=== PATIENT | female | born 1960 | race Caucasian/White ===

== ENCOUNTER 2020-02-16 04:08 | Emergency (ER) | payer BC, SELFPAY ==
[2020-02-16] VITALS (8 sets, daily range): BP systolic 98–121; BP diastolic 56–80; PULSE 61–88; RESP 11–18; TEMP 36.4; O2SAT 97–99; BMI 46.3
--- NOTE | 2020-02-16 | CT_ITS ---
EXAMINATION: CT HEAD WITHOUT CONTRAST CLINICAL INFORMATION: Dizziness COMPARISON: None. TECHNIQUE: Contiguous axial imaging was performed from the skull base to vertex without intravenous contrast. This CT examination was performed using dose optimization techniques as appropriate, variously including the following: * Automated exposure control * Adjustment of mA and/or kV according to patient size (this includes techniques or standardized protocols for targeted exams where dose is matched to indication/reason for exam; i.e. extremities or head) Use of iterative reconstruction technique DLP: 580 mGy-cm. FINDINGS: There is no evidence of acute intracranial hemorrhage or territorial infarction. No abnormal mass effect or midline shift is seen. Fernandez to white matter differentiation is well preserved. No extra-axial fluid collections are identified. No hydrocephalus. No significant volume loss. There is no abnormal attenuation within the brain parenchyma. The osseous structures and soft tissues are normal. Partial opacification of the left sphenoid sinus. The mastoid air cells and visualized portions of the paranasal sinuses are otherwise well aerated. IMPRESSION: No acute intracranial pathology.
--- NOTE | 2020-02-16 04:14 | ECG_ITS ---
Test Reason : DIZZINESS Blood Pressure : / mmHG Vent. Rate : 068 BPM Atrial Rate : 068 BPM P-R Int : 124 ms QRS Dur : 084 ms QT Int : 428 ms P-R-T Axes : 041 050 060 degrees QTc Int : 455 ms Sinus rhythm with Premature ventricular complexes RSR' or QR pattern in V1 suggests right ventricular conduction delay Abnormal ECG When compared with ECG of 22-MAR-2012 06:30, Premature ventricular complexes are now Present Referred By: Aminta Schaeffer Electronically Signed By:HENRY HUBBARD MD
--- NOTE | 2020-02-16 04:14 | XR_ITS ---
EXAMINATION: XR CHEST CLINICAL INFORMATION: Cough COMPARISON: None TECHNIQUE: Frontal view of the chest was obtained. FINDINGS: Cardiac leads overlie the chest. The lungs are well expanded. There is no focal consolidation, edema, or effusion. No pneumothorax. The cardiomediastinal silhouette is within normal limits. No acute osseous abnormality. IMPRESSION: Clear lungs.
--- NOTE | 2020-02-16 04:40 | ED.DIZZY ---
HPI - Dizziness General Chief Complaint: Dizziness <Aminta Schaeffer MD - Last Filed: 02/16/20:26> Stated Complaint: dizziness <Aminta Schaeffer MD - Last Filed: 02/16/20:> Time Seen by Provider: 02/16/20 04:13 <Aminta Schaeffer MD - Last Filed: 02/16/20:26> Source: patient <Aminta Schaeffer MD - Last Filed: 02/16/20:> Mode of arrival: EMS <Aminta Schaeffer MD - Last Filed: 02/16/20:> Limitations: no limitations <Aminta Schaeffer MD - Last Filed: 02/16/20:> History of Present Illness HPI Narrative: this is a 60-year-old female without significant past medical history presents with acute onset of dizziness. patient states that she had gotten up at 2:00 a.m. in the morning as is her usual practice and then was lying down on the couch and started to feel drowsy so she rolled over onto her side and when she did that she became acutely dizzy with significant vertigo described as the entire room was spinning around her head with associated sensation of nausea. She denies any associated visual/speech /hearing abnormalities and denies any unilateral numbness / weakness /tingling. In addition, this event was not associated with any fevers, chills, shortness of breath, chest pain /palpitations, diaphoresis. Patient states that otherwise she does not have any abdominal pain, diarrhea, urinary pain/ burning /frequency. she states that she is currently still dizzy but it has improved. <Aminta Schaeffer MD - Last Filed: 02/16/20 07:26> Related Data Allergies/Adverse Reactions: Allergies Allergy/AdvReac Type Severity Reaction Status Date / Time sumatriptan [From IMITREX] Allergy Unknown HIVES, Verified 02/16/20 05:53 SWELLING azithromycin AdvReac Unknown weakeness Verified 09/23/18 00:00 <Aminta Schaeffer MD - Last Filed: 02/16/20 07:26> Review of Systems Review of Systems: Pertinent positives and negatives as stated in the HPI. GEN: no fevers, chills, fatigue HEENT: no nasal congestion, sore throat, ear pain NEURO: no headache, dizziness, focal weakness PULM: no cough, shortness of breath CV: no chest pain, palpitations, LE edema ABD: no abdominal pain, nausea, vomiting, diarrhea : no dysuria, urgency, frequency SKIN: no rash ROS otherwise negative x 10 <Aminta Schaeffer MD - Last Filed: 02/16/20 07:26> [facility] Past Medical History Source: nursing notes reviewed <Aminta Schaeffer MD - Last Filed: 02/16/20 07:26> Medical History: Medical History No known health problems <Aminta Schaeffer MD - Last Filed: 02/16/20 07:26> Social History Social History: Social History Smoked in Last 30 Days: No Use of substances other than those prescribed or required for medical reasons: No Advance Directives: No Advance Directives Information Provided: No <Aminta Schaeffer MD - Last Filed: 02/16/20 07:26> Physical Exam Vital Signs and I&O and Narrative: Vital Signs and I&O: Vital Signs Temp 97.6 F 02/16/20 07:21 Pulse 77 02/16/20 09:07 Resp 11 L 02/16/20 09:07 BP 105/65 02/16/20 09:07 Pulse Ox 99 02/16/20 09:07 Intake & Output 02/15/20 02/16/20 02/16/20 18:59 06:59 18:59 Intake Total 299.70 / 299.70 700.3 / 700.3 Balance 299.70 / 299.70 700.3 / 700.3 Weight 115 kg Intake: Intake, IV Amoun t 299.70 / 299.70 700.3 / 700.3 0.9 % Sodium C hloride 1,000 ml 299.70 / 299.70 700.3 / 700.3 @ 999 mls/hr I VCONT .Q1H1M [facility] Rx#:[id number] Body Mass Index 46.3 <Aminta Schaeffer MD - Last Filed: 02/16/20 07:26> Vital Signs and I&O: Vital Signs Temp 97.6 F 02/16/20 07:21 Pulse 77 02/16/20 09:07 Resp 11 L 02/16/20 09:07 BP 105/65 02/16/20 09:07 Pulse Ox 99 02/16/20 09:07 Intake & Output 02/15/20 02/16/20 02/16/20 18:59 06:59 18:59 Intake Total 299.70 / 299.70 700.3 / 700.3 Balance 299.70 / 299.70 700.3 / 700.3 Weight 115 kg Intake: Intake, IV Amoun t 299.70 / 299.70 700.3 / 700.3 0.9 % Sodium C hloride 1,000 ml 299.70 / 299.70 700.3 / 700.3 @ 999 mls/hr I VCONT .Q1H1M [facility] Rx#:[id number] Body Mass Index 46.3 <Power Beasley MD - Last Filed: 02/16/20 09:28> VITAL SIGNS: Reviewed. GENERAL: Well developed, well nourished, in no acute distress. HEAD: Normocephalic/atraumatic, EYES: PERRLA, EOMI intact without pain, no nystagmus/pallor/icterus noted EARS: Ext canals without abnormality, TMs non-bulging and non-erythematous NOSE: Nares patent bilateral OROPHARYNX: no oral lesions noted, posterior pharynx clear and non-erythematous without noted tonsillar enlargement/erythema/exudates NECK: Supple, no adenopathy LUNGS: Normal breath sounds. No adventitious sounds or accessory muscle use. SpO2<> CARDIOVASCULAR: Regular rate and rhythm without noted murmurs, no JVD or lower extremity edema. ABDOMEN: Soft, non-tender, non-distended with bowel sounds. No rigidity. No guarding. No palpable masses or hernias noted MUSCULOSKELETAL: No tenderness, deformities, or effusions noted on gross inspection. EXTREMITIES: No cyanosis, clubbing or edema. SKIN: Inspection of the skin reveals no rashes, ulcerations, jaundice, pallor, or petechiae. NEUROLOGIC: Alert and oriented x 4. Strength and sensation to light touch were grossly intact x 4. Awake and alert, PERRLA. EOMI without nystagmus. face symmetric. facial sensation intact bilaterally. speech clear and fluent. no tongue deviation. normal uvula elevation. nml shoulder shrug. 5/5 strength bilat upper and lower extrem. sensation grossly intact x4 extrem. FTN intact. no pronator drift. ambulatory with steady gait. NIHSS: <> at time <> <Aminta Schaeffer MD - Last Filed: 02/16/20 07:26> Course Course Course Narrative: This is a 60-year-old female with history and clinical presentation most consistent with BPPV but will evaluate for dehydration, cardiac ischemia but doubt stroke /PE. Attempted Genaro maneuver with limited improvement, symptoms were definitely worse when attempting left ear Genaro maneuver. Review of all lab work/CT/EKG are negative for acute findings. <Aminta Schaeffer MD - Last Filed: 02/16/20 07:26> patient seen and re-evaluated came with headache and sudden onset of vertigo with history of migraine headaches CT scan head is negative no cerebellar signs finger to nose is negative patient ambulated in the ER will discharge her home on meclizine <Power Beasley MD - Last Filed: 02/16/20 09:28> MDM - Dizziness Lab Data Result diagrams: : 02/16/20 04:47 02/16/20 04:47 <Aminta Schaeffer MD - Last Filed: 02/16/20 07:26> Labs: Lab Results 02/16/20 02/16/20 02/16/20 Range/Units 04:47 04:47 04:47 WBC 6.7 (4.8-10.8) X10*3/uL RBC 4.33 (4.20-5.50) X10*6/uL Hgb 13.2 (12.0-16.0) g/dl Hct 39.0 (37-47) % MCV 90.1 (80-98) fL MCH 30.5 (27.0-33.0) pg MCHC 33.8 (31.0-35.0) g/dl RDW 11.5 (11.0-16.0) % Plt Count 244 (160-400) X10*3/uL MPV 9.0 L (9.4-12.3) fL Immature Gran % (Auto) 0.1 (0.0-0.4) % Neut % (Auto) 66.2 (45-73) % Lymph % (Auto) 20.9 (20-40) % [place] % (Auto) 10.9 (2-11) % Eos % (Auto) 1.5 (0-4) % Baso % (Auto) 0.4 (0-2) % Lymph # (Auto) 1.4 (1.2-4.9) X10*3/uL [place] # (Auto) 0.7 (0.1-1.2) X10*3/uL Eos # (Auto) 0.1 (0.0-0.4) X10*3/uL Baso # (Auto) 0.0 (0.0-0.2) X10*3/uL Abs Immat Gran (auto) 0.01 (0.00-0.03) X10*3/uL Absolute Neuts (auto) 4.4 (2.0-8.3) X10*3/uL Absolute Nucleated RBC 0.000 (0.0-0.012) X10*3/uL Nucleated RBC % (auto) 0.0 (0.0-0.2) /100WBC Sodium 141 (135-145) mmol/L Potassium 4.0 (3.3-5.1) mmol/l Chloride 108 (96-108) mmol/L Carbon Dioxide 26 (22-29) mmol/L Anion Gap 11 L (12-20) BUN 15 (9-16) mg/dL Creatinine 0.83 (0.5-1.4) mg/dL Estim Creat Clear Calc 87.6 Estimated GFR > 60 Random Glucose 109 (60-115) mg/dL Calcium 8.7 (8.4-10.2) mg/dL Total Bilirubin 0.7 (0.0-1.0) mg/dL AST 12 (5-31) U/L ALT 9 (0-31) U/L Alkaline Phosphatase 54 (39-117) U/L Troponin I High Sens < 3.5 (<3.5-17.0) ng/L Total Protein 5.9 L (6.5-8.0) g/dL Albumin 4.1 (3.5-5.0) g/dL Urine Color Urine Appearance Urine pH (5.0-8.0) Ur Specific [place] (1.005-1.025) Urine Protein (NEG-TRACE) MG/DL Urine Glucose (UA) (NEG) MG/DL Urine Ketones (NEG) MG/DL Urine Blood (NEG) Urine Nitrite (NEG) Ur Leukocyte Esterase (NEG) 02/16/20 Range/Units 08:19 WBC (4.8-10.8) X10*3/uL RBC (4.20-5.50) X10*6/uL Hgb (12.0-16.0) g/dl Hct (37-47) % MCV (80-98) fL MCH (27.0-33.0) pg MCHC (31.0-35.0) g/dl RDW (11.0-16.0) % Plt Count (160-400) X10*3/uL MPV (9.4-12.3) fL Immature Gran % (Auto) (0.0-0.4) % Neut % (Auto) (45-73) % Lymph % (Auto) (20-40) % [place] % (Auto) (2-11) % Eos % (Auto) (0-4) % Baso % (Auto) (0-2) % Lymph # (Auto) (1.2-4.9) X10*3/uL [place] # (Auto) (0.1-1.2) X10*3/uL Eos # (Auto) (0.0-0.4) X10*3/uL Baso # (Auto) (0.0-0.2) X10*3/uL Abs Immat Gran (auto) (0.00-0.03) X10*3/uL Absolute Neuts (auto) (2.0-8.3) X10*3/uL Absolute Nucleated RBC (0.0-0.012) X10*3/uL Nucleated RBC % (auto) (0.0-0.2) /100WBC Sodium (135-145) mmol/L Potassium (3.3-5.1) mmol/l Chloride (96-108) mmol/L Carbon Dioxide (22-29) mmol/L Anion Gap (12-20) BUN (9-16) mg/dL Creatinine (0.5-1.4) mg/dL Estim Creat Clear Calc Estimated GFR Random Glucose (60-115) mg/dL Calcium (8.4-10.2) mg/dL Total Bilirubin (0.0-1.0) mg/dL AST (5-31) U/L ALT (0-31) U/L Alkaline Phosphatase (39-117) U/L Troponin I High Sens (<3.5-17.0) ng/L Total Protein (6.5-8.0) g/dL Albumin (3.5-5.0) g/dL Urine Color YELLOW Urine Appearance HAZY Urine pH 7.0 (5.0-8.0) Ur Specific [place] 1.020 (1.005-1.025) Urine Protein NEG (NEG-TRACE) MG/DL Urine Glucose (UA) NEG (NEG) MG/DL Urine Ketones 5 (NEG) MG/DL Urine Blood NEG (NEG) Urine Nitrite NEG (NEG) Ur Leukocyte Esterase NEG (NEG) <Aminta Schaeffer MD - Last Filed: 02/16/20 07:26> Lab Results 02/16/20 02/16/20 02/16/20 Range/Units 04:47 04:47 04:47 WBC 6.7 (4.8-10.8) X10*3/uL RBC 4.33 (4.20-5.50) X10*6/uL Hgb 13.2 (12.0-16.0) g/dl Hct 39.0 (37-47) % MCV 90.1 (80-98) fL MCH 30.5 (27.0-33.0) pg MCHC 33.8 (31.0-35.0) g/dl RDW 11.5 (11.0-16.0) % Plt Count 244 (160-400) X10*3/uL MPV 9.0 L (9.4-12.3) fL Immature Gran % (Auto) 0.1 (0.0-0.4) % Neut % (Auto) 66.2 (45-73) % Lymph % (Auto) 20.9 (20-40) % [place] % (Auto) 10.9 (2-11) % Eos % (Auto) 1.5 (0-4) % Baso % (Auto) 0.4 (0-2) % Lymph # (Auto) 1.4 (1.2-4.9) X10*3/uL [place] # (Auto) 0.7 (0.1-1.2) X10*3/uL Eos # (Auto) 0.1 (0.0-0.4) X10*3/uL Baso # (Auto) 0.0 (0.0-0.2) X10*3/uL Abs Immat Gran (auto) 0.01 (0.00-0.03) X10*3/uL Absolute Neuts (auto) 4.4 (2.0-8.3) X10*3/uL Absolute Nucleated RBC 0.000 (0.0-0.012) X10*3/uL Nucleated RBC % (auto) 0.0 (0.0-0.2) /100WBC Sodium 141 (135-145) mmol/L Potassium 4.0 (3.3-5.1) mmol/l Chloride 108 (96-108) mmol/L Carbon Dioxide 26 (22-29) mmol/L Anion Gap 11 L (12-20) BUN 15 (9-16) mg/dL Creatinine 0.83 (0.5-1.4) mg/dL Estim Creat Clear Calc 87.6 Estimated GFR > 60 Random Glucose 109 (60-115) mg/dL Calcium 8.7 (8.4-10.2) mg/dL Total Bilirubin 0.7 (0.0-1.0) mg/dL AST 12 (5-31) U/L ALT 9 (0-31) U/L Alkaline Phosphatase 54 (39-117) U/L Troponin I High Sens < 3.5 (<3.5-17.0) ng/L Total Protein 5.9 L (6.5-8.0) g/dL Albumin 4.1 (3.5-5.0) g/dL Urine Color Urine Appearance Urine pH (5.0-8.0) Ur Specific [place] (1.005-1.025) Urine Protein (NEG-TRACE) MG/DL Urine Glucose (UA) (NEG) MG/DL Urine Ketones (NEG) MG/DL Urine Blood (NEG) Urine Nitrite (NEG) Ur Leukocyte Esterase (NEG) 02/16/20 Range/Units 08:19 WBC (4.8-10.8) X10*3/uL RBC (4.20-5.50) X10*6/uL Hgb (12.0-16.0) g/dl Hct (37-47) % MCV (80-98) fL MCH (27.0-33.0) pg MCHC (31.0-35.0) g/dl RDW (11.0-16.0) % Plt Count (160-400) X10*3/uL MPV (9.4-12.3) fL Immature Gran % (Auto) (0.0-0.4) % Neut % (Auto) (45-73) % Lymph % (Auto) (20-40) % [place] % (Auto) (2-11) % Eos % (Auto) (0-4) % Baso % (Auto) (0-2) % Lymph # (Auto) (1.2-4.9) X10*3/uL [place] # (Auto) (0.1-1.2) X10*3/uL Eos # (Auto) (0.0-0.4) X10*3/uL Baso # (Auto) (0.0-0.2) X10*3/uL Abs Immat Gran (auto) (0.00-0.03) X10*3/uL Absolute Neuts (auto) (2.0-8.3) X10*3/uL Absolute Nucleated RBC (0.0-0.012) X10*3/uL Nucleated RBC % (auto) (0.0-0.2) /100WBC Sodium (135-145) mmol/L Potassium (3.3-5.1) mmol/l Chloride (96-108) mmol/L Carbon Dioxide (22-29) mmol/L Anion Gap (12-20) BUN (9-16) mg/dL Creatinine (0.5-1.4) mg/dL Estim Creat Clear Calc Estimated GFR Random Glucose (60-115) mg/dL Calcium (8.4-10.2) mg/dL Total Bilirubin (0.0-1.0) mg/dL AST (5-31) U/L ALT (0-31) U/L Alkaline Phosphatase (39-117) U/L Troponin I High Sens (<3.5-17.0) ng/L Total Protein (6.5-8.0) g/dL Albumin (3.5-5.0) g/dL Urine Color YELLOW Urine Appearance HAZY Urine pH 7.0 (5.0-8.0) Ur Specific [place] 1.020 (1.005-1.025) Urine Protein NEG (NEG-TRACE) MG/DL Urine Glucose (UA) NEG (NEG) MG/DL Urine Ketones 5 (NEG) MG/DL Urine Blood NEG (NEG) Urine Nitrite NEG (NEG) Ur Leukocyte Esterase NEG (NEG) <Power Beasley MD - Last Filed: 02/16/20 09:28> Sign Out Sign Out Data: Patient Sign Out occurred on 02/16/20 at 08:12. After a detailed discussion of the patient's case, care was transferred from Aminta Schaeffer MD to Power Beasley MD. Sign Out Comment: 60F with acute vertigo: CT/Labs/EKG negative, orthostatics+, has improved with fluids/Genaro maneuver/Meclizine f/u: UA, coompletion of IVF and then discharge after ambulation test Last updated by Aminta Schaeffer MD at 02/16/20 07:25 <Aminta Schaeffer MD - Last Filed: 02/16/20 07:26>
[2020-02-16 04:56] LABS: MANUAL DIFF FLAG NO
[2020-02-16 04:57] LABS: Basophils Percent Auto 0.4 % (0-2); Eosinophils Absolute Auto 0.1 X10*3/uL (0.0-0.4); Eosinophils Percent Auto 1.5 % (0-4); Hemoglobin 13.2 g/dl (12.0-16.0); Imm Gran Abs Auto 0.01 X10*3/uL (0.00-0.03); Imm Gran Pct Auto 0.1 % (0.0-0.4); Lymphocytes Absolute Auto 1.4 X10*3/uL (1.2-4.9); Lymphocytes Percent Auto 20.9 % (20-40); Mean Corpuscular HGB Conc 33.8 g/dl (31.0-35.0); Mean Corpuscular Hemoglobin 30.5 pg (27.0-33.0); Mean Corpuscular Volume 90.1 fL (80-98); Monocytes Absolute Auto 0.7 X10*3/uL (0.1-1.2); Monocytes Percent Auto 10.9 % (2-11); Neutrophils Absolute Auto 4.4 X10*3/uL (2.0-8.3); Neutrophils Percent Auto 66.2 % (45-73); Platelet Count 244 X10*3/uL (160-400); Red Blood Count 4.33 X10*6/uL (4.20-5.50); Red Cell Distribution Width 11.5 % (11.0-16.0); White Blood Count 6.7 X10*3/uL (4.8-10.8)
[2020-02-16 05:19] LABS: Alanine Aminotransferase 9 U/L (0-31); Albumin Level 4.1 g/dL (3.5-5.0); Alkaline Phosphatase 54 U/L (39-117); Anion Gap 11 (12-20); Aspartate Amino Transferase 12 U/L (5-31); Bilirubin Total 0.7 mg/dL (0.0-1.0); Blood Urea Nitrogen 15 mg/dL (9-16); Calcium 8.7 mg/dL (8.4-10.2); Carbon Dioxide 26 mmol/L (22-29); Chloride 108 mmol/L (96-108); Creatinine Clr Calc Pharmacy 87.6; Estimated Glomerular Filt Rate > 60; Glucose Random 109 mg/dL (60-115); Sodium 141 mmol/L (135-145); Total Protein 5.9 g/dL (6.5-8.0)
[2020-02-16 05:23] LABS: Troponin-I High Sensitivity < 3.5 ng/L (<3.5-17.0)
[2020-02-16] MEDS: 0.9 % Sodium Chloride 1,000 ML 999 ML IVCONT (05:55)
[2020-02-16] MEDS: Meclizine HCl 25 MG TABLET PO (05:55)
[2020-02-16] MEDS: ondansetron HCL 4 MG/2 ML VIAL IVPUSH (05:55)
--- NOTE | 2020-02-16 06:41 | PC.NURSE ---
PT RETURNS FROM CT IN STRETCHER.
[2020-02-16 08:37] LABS: Glucose Urine UA NEG (NEG); Leukocyte Esterase Urine NEG (NEG); Nitrite Urine NEG (NEG); Urine Blood NEG (NEG); Urine Ketones 5 MG/DL (NEG); Urine Protein NEG (NEG-TRACE)
[2020-02-16 08:41] LABS: Appearance Urine HAZY; Color Urine YELLOW
--- NOTE | 2020-02-16 09:09 | PC.NURSE ---
REPORT TAKEN FROM LEA PRICE. PT IS ALERT, RR EVEN, SPEAKS IN FULL SENTENCES, SKIN IS PWDI, AND SHE IS IN NAD, DENYING DIZZINESS.
== END 2020-02-16 09:45 | disposition home or self-care (01) ==
PROVIDERS: Student in an Organized Health Care Education/Training Program; Emergency Provider Internal Medicine
DX: R42 Dizziness and giddiness (principal)
CPT/HCPCS: 36415; 70450; 71045; 80053; 81003; 84484; 85025; 93005; 96361; 96374; 99284; J2405

== ENCOUNTER 2020-02-25 07:26 | Outpatient (REF) | payer BC, SELFPAY ==
[2020-02-25 08:23] LABS: Cholesterol 222 mg/dL; HDL Cholesterol 57 mg/dL; LDL Cholesterol Calculated 155 mg/dl; Triglycerides 53 mg/dL
[2020-02-25 08:44] LABS: Vitamin D 25-OH Total 16.9 ng/mL (>30)
== END 2020-02-25 07:27 | disposition home or self-care (01) ==
LOC: HO.LAB 07:26
PROVIDERS: PCP Internal Medicine; Visit Provider Internal Medicine
DX: Z00.00 Encounter for general adult medical examination without abnormal findings (principal); E55.9 Vitamin D deficiency, unspecified
CPT/HCPCS: 80061; 82306

== ENCOUNTER 2020-03-21 08:19 | Outpatient (REF) | payer BC, SELFPAY ==
--- NOTE | 2020-03-21 08:45 | MM_ITS ---
EXAMINATION: BONE DENSITOMETRY CLINICAL INDICATION: Postmenopausal. COMPARISON: Baseline BD dated 03/11/2012. TECHNIQUE: Using a [employer] DXA System (software version: 13.1) manufactured by [employer], dual-energy x-ray absorptiometry was performed of the lumbar spine and left hip. The images are of good technical quality. Summary results are attached. FINDINGS: AP SPINE L1-L4: Current: BMD 1.033 g/cm2, Z-score 0.4, T-score -1.2, osteopenia, 9.5% decrease from baseline (<5% change is not significant). Baseline: BMD 1.141 g/cm2. LEFT FEMUR, NECK: Current: BMD 0.764 g/cm2, Z-score -0.4, T-score -2.0, osteopenia. Baseline: BMD 0.919 g/cm2. LEFT FEMUR, TOTAL: Current: BMD 0.845 g/cm2, Z-score -0.1, T-score -1.3, osteopenia, 14.2% decrease from baseline (<5% change is not significant). Baseline: BMD 0.985 g/cm2. IDENTIFIED RISK FACTORS: Low calcium intake, menopause. HISTORY OF FRACTURE: None listed. MEDICATIONS: None listed. MM/XR DEXA axial skeleton IMPRESSION: 1. DIAGNOSIS: Osteopenia based on the lowest T-score value of -2.0 in the femoral neck applying World Health Organization criteria. 2. 10-YEAR FRACTURE RISK PREDICTION, FRAX: Major osteoporotic fracture (clinical spine, forearm, hip or shoulder) 8.2%. Hip fracture 1.1%. 3. Treatment Recommendations: NOF guidelines recommend consideration for treatment in postmenopausal women and men age 50 and older presenting with the following: -A hip or vertebral (clinical or morphometric) fracture. -T-score less than or equal to -2.5 at the femoral neck or spine after appropriate evaluation to exclude secondary causes. -Low bone mass at the hip or spine and a 10-year fracture probability by FRAX of greater than or equal to 3% for hip fracture or greater than or equal to 20% for major osteoporotic fracture based on the [place] adapted WHO algorithm. 4. Other Recommendations: All treatment decisions require clinical judgment and consideration of individual patient factors, including patient preferences, comorbidities, previous drug use, risk factors not captured in the FRAX model (e.g. frailty, falls, vitamin D deficiency, increased bone turnover, interval significant decline in bone density) and possible under or overestimation of fracture risk by FRAX. Additional medical evaluation for secondary cause of low bone mineral density may be appropriate. FUTURE SCAN RECOMMENDATION: People with diagnosed cases of osteoporosis or at high risk for fracture should have regular bone mineral density tests. For patients eligible for Medicare, routine testing is allowed once every 2 years. The testing frequency can be increased to one year for patients who have rapidly progressing disease, those who are receiving or discontinuing medical therapy to restore bone mass, or have additional risk factors.
== END 2020-03-21 08:20 | disposition home or self-care (01) ==
LOC: HO.MAMMO 08:19
PROVIDERS: PCP Internal Medicine; Visit Provider Internal Medicine
DX: N95.9 Unspecified menopausal and perimenopausal disorder (principal); Z12.31 Encounter for screening mammogram for malignant neoplasm of breast
CPT/HCPCS: 77080

== ENCOUNTER 2020-08-04 07:24 | Outpatient (REF) | payer BC, SELFPAY ==
--- NOTE | ~2020-08-04 | MM_ITS ---
EXAMINATION: MM SCREENING DIGITAL BREAST TOMOSYNTHESIS, BILATERAL CLINICAL INFORMATION: Screening. Asymptomatic. The lifetime risk of breast cancer based on the Tyrer-Cuzick Model is 4.2%. COMPARISON: Mammography: May 07, 2019 and studies dating back to November 04, 2013 TECHNIQUE: Digital breast tomosynthesis is performed in both the craniocaudal and mediolateral oblique views along with computer-aided detection (CAD). Synthesized 2D images are generated from the tomosynthesis. FINDINGS: The breasts are extremely dense, which lowers the sensitivity of mammography (ACR BI-RADS breast composition Category d). There are no significant masses, abnormal calcifications, or other abnormalities. MM/MM tomosynthesis screening BI IMPRESSION: There are no significant changes from prior study. ASSESSMENT: BI-RADS 1: Negative RECOMMENDATION: Routine annual mammography screening. This patient's information was entered into a reminder system with a target due date for their next mammogram.
== END 2020-08-04 07:25 | disposition home or self-care (01) ==
LOC: HO.MAMMO 07:24
PROVIDERS: PCP Internal Medicine; Visit Provider Internal Medicine
DX: Z12.31 Encounter for screening mammogram for malignant neoplasm of breast (principal)
CPT/HCPCS: 77063; 77067

== ENCOUNTER 2020-10-23 16:54 | Outpatient (REF) | payer BC, SELFPAY ==
[2020-10-23 17:40] LABS: Influenza A PCR NEGATIVE (Negative); Influenza B PCR NEGATIVE (Negative); Resp Syncy Virus RNA Qual PCR NEGATIVE (Negative); SARS COV2 PCR INHOUSE NEGATIVE (Negative)
== END 2020-10-23 16:55 | disposition home or self-care (01) ==
LOC: HO.LNP 16:54
PROVIDERS: Visit Provider Internal Medicine
DX: Z20.822 Contact with and (suspected) exposure to COVID-19 (principal)
CPT/HCPCS: 0241U

== ENCOUNTER 2021-01-07 16:37 | Outpatient (REF) | payer BC, SELFPAY ==
[2021-01-07 17:01] LABS: MANUAL DIFF FLAG NO
[2021-01-07 17:05] LABS: Basophils Percent Auto 0.5 % (0-2); Eosinophils Absolute Auto 0.1 X10*3/uL (0.0-0.4); Eosinophils Percent Auto 1.3 % (0-4); Hematocrit 42.4 % (37-47); Hemoglobin 14.1 g/dl (12.0-16.0); Imm Gran Abs Auto 0.01 X10*3/uL (0.00-0.03); Imm Gran Pct Auto 0.2 % (0.0-0.4); Lymphocytes Absolute Auto 1.9 X10*3/uL (1.2-4.9); Lymphocytes Percent Auto 29.9 % (20-40); Mean Corpuscular HGB Conc 33.3 g/dl (31.0-35.0); Mean Corpuscular Hemoglobin 30.2 pg (27.0-33.0); Mean Corpuscular Volume 90.8 fL (80-98); Mean Platelet Volume 9.3 fL (9.4-12.3); Monocytes Absolute Auto 0.5 X10*3/uL (0.1-1.2); Monocytes Percent Auto 8.2 % (2-11); Neutrophils Absolute Auto 3.8 X10*3/uL (2.0-8.3); Neutrophils Percent Auto 59.9 % (45-73); Platelet Count 276 X10*3/uL (160-400); Red Blood Count 4.67 X10*6/uL (4.20-5.50); Red Cell Distribution Width 11.7 % (11.0-16.0); White Blood Count 6.4 X10*3/uL (4.8-10.8)
[2021-01-07 17:31] LABS: Alanine Aminotransferase 15 U/L (0-31); Albumin Level 4.6 g/dL (3.5-5.0); Alkaline Phosphatase 67 U/L (39-117); Anion Gap 12 (12-20); Aspartate Amino Transferase 18 U/L (5-31); Bilirubin Total 0.5 mg/dL (0.0-1.0); Blood Urea Nitrogen 15 mg/dL (9-16); Calcium 9.7 mg/dL (8.4-10.2); Carbon Dioxide 27 mmol/L (22-29); Chloride 108 mmol/L (96-108); Estimated Glomerular Filt Rate > 60; Glucose Random 96 mg/dL (60-115); Potassium 4.4 mmol/L (3.3-5.1); Sodium 143 mmol/L (135-145); Total Protein 6.8 g/dL (6.5-8.0)
[2021-01-07 17:54] LABS: Free T4 (Free Thyroxine) 0.96 ng/dL (0.71-1.85); Vitamin D 25-OH Total 23.6 ng/mL (>30)
== END 2021-01-07 16:38 | disposition home or self-care (01) ==
LOC: HO.LAB 16:37
PROVIDERS: PCP Internal Medicine; Visit Provider Internal Medicine
DX: R53.83 Other fatigue (principal); E55.9 Vitamin D deficiency, unspecified; K57.90 Diverticulosis of intestine, part unspecified, without perforation or abscess without bleeding
CPT/HCPCS: 36415; 80053; 82306; 84439; 84443; 85025

== ENCOUNTER 2021-01-17 16:27 | Outpatient (REF) | payer BC, OTHER, SELFPAY ==
--- NOTE | ~2021-01-17 | US_ITS ---
EXAMINATION: US THYROID CLINICAL INFORMATION: Neck fullness. COMPARISON: None TECHNIQUE: Linear transducer grayscale and color Doppler examination with attention to the region of the thyroid. FINDINGS: SIZE: Measurements of the thyroid lobes and nodules are given in sagittal, anteroposterior and transverse dimensions respectively. Right Thyroid Lobe: 4.6 x 1.1 x 1.2 cm, volume 3.2 mL. Parenchyma: The gland echotexture is homogeneous. Thyroid vascularity is normal. Left Thyroid Lobe: 4.6 x 1.1 x 1.5 cm, volume 3.8 mL. Parenchyma: The gland echotexture is homogeneous. Thyroid vascularity is normal. Isthmus: 0.2 cm in maximum AP dimension. Estimated total number of nodules greater than or equal to 1 cm: 1. Fiber Technician nodules are described as follows: 1. Location: Left mid. Size: 1.3 x 0.4 x 1.0 cm, volume 0.3 mL. Nodule characteristics: Composition: Cystic(0). ACR TI-RADS total points: 0 ACR TI-RADS category: 1 NODES: No lymphadenopathy is seen in the tissue surrounding the thyroid gland. US/US thyroid IMPRESSION: 1.3 cm cystic lesion in the left mid thyroid. No follow-up recommended based on ACR TI-RADS criteria.
== END 2021-01-17 16:28 | disposition home or self-care (01) ==
LOC: HO.US 16:27
PROVIDERS: PCP Internal Medicine; Visit Provider Internal Medicine
DX: R22.1 Localized swelling, mass and lump, neck (principal)
CPT/HCPCS: 76536

== ENCOUNTER 2021-03-28 16:03 | Outpatient (REF) | payer BC, SELFPAY ==
[2021-03-28 18:35] LABS: Influenza A PCR NEGATIVE (Negative); Influenza B PCR NEGATIVE (Negative); Resp Syncy Virus RNA Qual PCR NEGATIVE (Negative); SARS COV2 PCR INHOUSE NEGATIVE (Negative)
== END 2021-03-28 16:04 | disposition home or self-care (01) ==
LOC: HO.LNP 16:03
PROVIDERS: Visit Provider Internal Medicine
DX: J98.8 Other specified respiratory disorders (principal); R51.9 Headache, unspecified; R09.89 Other specified symptoms and signs involving the circulatory and respiratory systems; Z20.822 Contact with and (suspected) exposure to COVID-19
CPT/HCPCS: 0241U

== ENCOUNTER 2021-05-09 06:36 | Outpatient (REF) | payer BC, SELFPAY ==
[2021-05-09 07:57] LABS: Cholesterol 247 mg/dL; HDL Cholesterol 65 mg/dL; LDL Cholesterol Calculated 162 mg/dl; Triglycerides 100 mg/dL
[2021-05-09 08:34] LABS: Appearance Urine CLEAR; Color Urine YELLOW; Glucose Urine UA NEG (NEG); Leukocyte Esterase Urine NEG (NEG); Nitrite Urine NEG (NEG); Specific Gravity - Urine 1.025 (1.005-1.025); Urine Blood TRACE (NEG); Urine Ketones NEG (NEG); Urine Protein NEG (NEG-TRACE)
[2021-05-09 08:45] LABS: Squamous Epithelial Cell Urine 1+ /LPF
== END 2021-05-09 06:37 | disposition home or self-care (01) ==
LOC: HO.LAB 06:36
PROVIDERS: PCP Internal Medicine; Visit Provider Internal Medicine
DX: E78.00 Pure hypercholesterolemia, unspecified (principal); N20.0 Calculus of kidney; E55.9 Vitamin D deficiency, unspecified
CPT/HCPCS: 36415; 80061; 81001; 82306

== ENCOUNTER 2021-06-04 06:05 | Outpatient (REF) | payer BC, SELFPAY ==
[2021-06-04 06:27] LABS: MANUAL DIFF FLAG NO
[2021-06-04 07:21] LABS: Basophils Percent Auto 0.8 % (0-2); Eosinophils Absolute Auto 0.1 X10*3/uL (0.0-0.4); Eosinophils Percent Auto 1.9 % (0-4); Hematocrit 41.3 % (37.0-47.0); Imm Gran Abs Auto 0.01 X10*3/uL (0.00-0.03); Imm Gran Pct Auto 0.3 % (0.0-0.4); Lymphocytes Absolute Auto 1.5 X10*3/uL (1.2-4.9); Lymphocytes Percent Auto 39.4 % (20-40); Mean Corpuscular HGB Conc 33.9 g/dl (31.0-35.0); Mean Corpuscular Hemoglobin 30.4 pg (27.0-33.0); Mean Corpuscular Volume 89.8 fL (80.0-98.0); Mean Platelet Volume 9.7 fL (9.4-12.3); Monocytes Absolute Auto 0.4 X10*3/uL (0.1-1.2); Neutrophils Absolute Auto 1.7 x10*3/uL (2.0-8.3); Neutrophils Percent Auto 46.6 % (45-73); Platelet Count 263 X10*3/uL (160-400); Red Cell Distribution Width 11.5 % (11.0-16.0); White Blood Count 3.7 X10*3/uL (4.8-10.8)
[2021-06-04 07:47] LABS: Alanine Aminotransferase 11 U/L (0-31); Albumin Level 4.2 g/dL (3.5-5.0); Alkaline Phosphatase 61 U/L (39-117); Anion Gap 11 (12-20); Aspartate Amino Transferase 14 U/L (5-31); Bilirubin Total 0.7 mg/dL (0.0-1.0); Blood Urea Nitrogen 17 mg/dL (9-16); C Reactive Protein 0.04 mg/dL (< or = 0.50); Calcium 9.7 mg/dL (8.4-10.2); Carbon Dioxide 29 mmol/L (22-29); Chloride 107 mmol/L (96-108); Estimated Glomerular Filt Rate > 60; Glucose Random 94 mg/dL (60-115); Potassium 4.3 mmol/L (3.3-5.1); Sodium 143 mmol/L (135-145); Total Protein 6.3 g/dL (6.5-8.0)
[2021-06-04 08:09] LABS: Free T4 (Free Thyroxine) 0.92 ng/dL (0.71-1.85); Thyroid Stimulating Hormone 2.55 uIU/mL (0.32-4.0)
[2021-06-04 08:56] LABS: Vitamin B12 251 pg/mL (200-900)
== END 2021-06-04 06:06 | disposition home or self-care (01) ==
LOC: HO.LAB 06:05
PROVIDERS: PCP Internal Medicine; Visit Provider Internal Medicine
DX: E78.00 Pure hypercholesterolemia, unspecified (principal); E55.9 Vitamin D deficiency, unspecified; R42 Dizziness and giddiness
CPT/HCPCS: 36415; 80053; 82607; 84439; 84443; 85025; 86140

== ENCOUNTER 2021-06-05 15:58 | Emergency (ER) | payer BC, SELFPAY ==
--- NOTE | ~2021-06-05 | CT_ITS ---
EXAMINATION: CT ANGIOGRAM HEAD CT ANGIOGRAM NECK CLINICAL INFORMATION: Left-sided facial numbness. COMPARISON: CT head from 02/16/2020. TECHNIQUE: Initial noncontrast studio designer imaging of the head and neck was performed. Noncontrast head CT was also performed. Test bolus sequences followed by intravenous administration 70 mL of Omnipaque 350. Helical imaging was performed in the axial plane from the aortic arch to the skull vertex. Delayed postcontrast imaging of the head was also performed. The data was processed at the laboratory technologist's workstation for generation of MIP sequences. Angled MIPs and volume rendered reformatted images were also generated at an offline 3D workstation. Stenoses are assessed in accordance with NASCET criteria unless otherwise indicated. This CT examination was performed using dose optimization techniques as appropriate, variously including the following: *Automated exposure control. *Adjustment of mA and/or kV according to patient size (this includes techniques or standardized protocols for targeted exams where dose is matched to indication/reason for exam; i.e. extremities or head). *Use of iterative reconstruction technique. DLP: 2093 mGy-cm FINDINGS: CT Head: There is no evidence of acute intracranial hemorrhage or edematous territorial infarction. There is no abnormal attenuation within the brain parenchyma. Fernandez-white matter differentiation is preserved. The ventricles are normal in size and configuration. No evidence for obstructive hydrocephalus. No abnormal mass effect or midline shift. No extra-axial fluid collections. No pathologic intra-axial enhancement or regional oligemia. No acute soft tissue or osseous abnormalities. Mild mucosal thickening of the paranasal sinuses. Periapical lucencies associated with the maxillary right sided 1st molar. The mastoid air cells and middle ear cavities are clear. CT Neck: There is a 1 cm cm hypoattenuating nodule in the left thyroid lobe (no follow-up imaging recommended). The remaining cervical soft tissues are within normal limits. Advanced degenerative arthropathy of the atlantodental articulation. Advanced degenerative disc disease at C5-C6 with disc-osteophyte complex formation. Facet and uncovertebral joint arthropathy leads to osseous encroachment on the neural foramina at C5-C6. CT Upper Chest: The visualized lung apices and upper mediastinum are within normal limits. Neck CTA: Aortic Arch: Normal contour and caliber. Classic 3 vessel branching pattern of the aortic arch. Great Vessel Origins: No significant stenosis of the branch origins. Right Common Carotid Artery: No focal stenosis or occlusion. Cervical Right Internal Carotid Artery: Normal opacification without focal stenosis or occlusion. Left Common Carotid Artery: No focal stenosis or occlusion. Cervical Left Internal Carotid Artery: Normal opacification without focal stenosis or occlusion. Cervical Right Vertebral Artery: No focal stenosis or occlusion. Cervical Left Vertebral Artery: Mildly dominant. No focal stenosis or occlusion. Brain CTA: Moderate venous contamination. Intracranial Internal Carotid Arteries: No focal stenosis or occlusion. Right Anterior Cerebral Artery: Normal A1 segment. Normal opacification of the distal BOO segments. Left Anterior Cerebral Artery: Normal A1 segment. Normal opacification of the distal BOO segments. Anterior Communicating Artery: Normal. Right Middle Cerebral Artery: Normal M1 segment of the MCA without focal stenosis or occlusion. Normal arborization of the distal segments. Left Middle Cerebral Artery: Normal M1 segment of the MCA without focal stenosis or occlusion. Normal arborization of the distal segments. Right Vertebral Artery: Normal V4 segment. Normal opacification of the proximal segments of the posterior inferior cerebellar artery. Left Vertebral Artery: Normal V4 segment. Normal opacification of the proximal segments of the posterior inferior cerebellar artery. Basilar Artery: Normal without focal stenosis or occlusion. Normal appearance of the proximal superior cerebellar arteries. Right Posterior Cerebral Artery: Normal P1 segment. Normal posterior communicating artery. Normal opacification of the distal RECRUITING OPERATIONS CONSULTANT segments. Left Posterior Cerebral Artery: The P1 segment is diminutive. origin of the RECRUITING OPERATIONS CONSULTANT with robust opacification of the posterior communicating artery. Normal opacification of the distal RECRUITING OPERATIONS CONSULTANT segments. Normal opacification of the superior sagittal, straight, transverse, and sigmoid sinuses. CT/CT angio head neck IMPRESSION: 1. No evidence of acute intracranial hemorrhage or edematous territorial infarction. 2. CTA of the head and neck without proximal occlusion or flow-limiting stenosis.
[2021-06-05 16:37] VITALS: BP 145/71; PULSE 87; RESP 16; O2SAT 100; BMI 20.8
--- NOTE | 2021-06-05 16:41 | ECG_ITS ---
Test Reason : DIZZYNESS Blood Pressure : / mmHG Vent. Rate : 086 BPM Atrial Rate : 086 BPM P-R Int : 138 ms QRS Dur : 082 ms QT Int : 378 ms P-R-T Axes : 047 059 057 degrees QTc Int : 452 ms Normal sinus rhythm Low voltage QRS Borderline ECG When compared with ECG of 16-FEB-2020 04:15, Premature ventricular complexes are no longer Present Referred By: Generic ED Physician Electronically Signed By:GILDA RODRIGUEZ MD
[2021-06-05 17:03] LABS: MANUAL DIFF FLAG NO
[2021-06-05 17:05] LABS: Basophils Percent Auto 0.7 % (0-2); Eosinophils Absolute Auto 0.1 X10*3/uL (0.0-0.4); Eosinophils Percent Auto 1.1 % (0-4); Hematocrit 41.2 % (37.0-47.0); Imm Gran Abs Auto 0.02 X10*3/uL (0.00-0.03); Imm Gran Pct Auto 0.3 % (0.0-0.4); Lymphocytes Absolute Auto 1.8 X10*3/uL (1.2-4.9); Lymphocytes Percent Auto 28.6 % (20-40); Mean Corpuscular Hemoglobin 30.4 pg (27.0-33.0); Mean Corpuscular Volume 89.4 fL (80.0-98.0); Mean Platelet Volume 9.4 fL (9.4-12.3); Monocytes Absolute Auto 0.7 X10*3/uL (0.1-1.2); Monocytes Percent Auto 10.9 % (2-11); Neutrophils Absolute Auto 3.6 x10*3/uL (2.0-8.3); Neutrophils Percent Auto 58.4 % (45-73); Platelet Count 267 X10*3/uL (160-400); Red Blood Count 4.61 X10*6/uL (4.20-5.50); Red Cell Distribution Width 11.5 % (11.0-16.0); White Blood Count 6.1 X10*3/uL (4.8-10.8)
[2021-06-05 17:15] LABS: Appearance Urine CLEAR; Color Urine YELLOW; Glucose Urine UA NEG (NEG); Leukocyte Esterase Urine NEG (NEG); Nitrite Urine NEG (NEG); Specific Gravity - Urine 1.025 (1.005-1.025); UACC Culture Trigger NO; Urine Blood 2+ (NEG); Urine Ketones NEG (NEG); Urine Protein NEG (NEG-TRACE)
[2021-06-05 17:38] LABS: Anion Gap 10 (12-20); Blood Urea Nitrogen 18 mg/dL (9-16); Carbon Dioxide 27 mmol/L (22-29); Chloride 109 mmol/L (96-108); Creatinine Clr Calc Pharmacy 52.5; Estimated Glomerular Filt Rate > 60; Sodium 142 mmol/L (135-145)
[2021-06-05 17:39] LABS: Calcium 9.7 mg/dL (8.4-10.2); Glucose Random 104 mg/dL (60-115)
[2021-06-05 17:47] LABS: Squamous Epithelial Cell Urine 1+ /LPF
--- NOTE | 2021-06-05 19:58 | ED_ITS ---
HPI - Dizziness General Chief Complaint: Dizziness Stated Complaint: dizziness,headaches, left side of face numb. Time Seen by Provider: 06/05/21 19:56 Source: patient Mode of arrival: ambulatory Limitations: no limitations History of Present Illness HPI Narrative: 7-year-old female with vertigo and migraines as a significant past medical history presents with an episode of dizziness with left-sided facial numbness and tingling that started at 2:45 p.m.. She does have a history of vertigo and migraines which he does not take any medications for. She did have a headache last night but it was not inconsistent with prior headaches. MD elicited complaint: dizziness and vertigo Onset (ago): hour(s) (2:45 p.m.) Timing: sudden onset Severity: moderate Description: lightheadedness History of similar symptoms: No Exacerbating factors: nothing Relieving factors: nothing Associated symptoms: denies other symptoms Associated neuro symptoms: facial numbness Stroke scale total: 0 Related Data Previous Rx's Medication Instructions Recorded meclizine 25 mg tablet 25 mg PO TID PRN #20 tab 02/16/20 Allergies Allergy/AdvReac Type Severity Reaction Status Date / Time sumatriptan [From Allergy Unknown HIVES, Verified 02/16/20 05:53 IMITREX] SWELLING azithromycin AdvReac Unknown weakeness Verified 09/23/18 00:00 Review of Systems Verdana 4l Review of Systems: Verdana 4d Verdana 4d Constitutional: No Fever, No Chills ENT/Mouth: No Ear Pain, No Hoarseness, No sore throat Eyes: No Eye Pain, No Swelling, No Redness, No Foreign Body Cardiovascular: No Chest Pain, No SOB Respiratory: No Cough, No Dyspnea GastrointestinalGastrointestinal: No Nausea, No Vomiting, No Diarrhea, No abdominal Pain Genitourinary: No Dysuria, No Hematuria Musculoskeletal: positive joint pain, No Myalgias, No Joint Swelling Skin: No Skin lacerations, No rash Neuro: No Weakness, No Numbness, positive left-sided facial Paresthesias, No Loss of Consciousness, positive Dizziness, No Headache Psych: No Anxiety/Panic, No Depression Heme/Lymph: no easy bruising, no Lymphadenopathy Endocrine: No Polyuria, No Polydipsia Yes all other systems are reviewed and are negative [facility] [place] Past Medical History Attestation statement: The following information was validated with the patient. Source: old records reviewed Medical History No known health problems Social History Social History Advance Directives: No Advance Directives Information Provided: No Physical Exam Verdana 4l Vital Signs: Verdana 4d Verdana 4d Vital Signs: Verdana 4d Verdana 4Bd Last Vital Signs Verdana 4d Splash Line Operator New 4d Splash Line Operator New 4d Temp 98.0 F 06/05/21 21:24 Splash Line Operator New 4d Pulse 81 06/05/21 21:24 Splash Line Operator New 4d Resp 14 06/05/21 21:24 BP 115/80 06/05/21 21:24 Pulse Ox 98 06/05/21 21:24 BMI result Body Mass Index 22.2 Appearance: Alert. Oriented X3. No acute distress. Head: Normal external exam. Normocephalic. Atraumatic. No Olivier signs noted. No raccoon eyes noted Eyes: PERRLA. EOMI. Conjunctiva and sclera normal. Eyelids normal. ENT: TM's Normal. Pharynx normal. Uvula midline. Moist mucous membranes. No trismus noted. No drooling noted. No muffled voice noted. Neck: Normal inspection. Neck supple. No adenopathy. No meningeal signs. No neck mass noted. CVS: Normal heart rate and rhythm. Heart sound normal. No murmurs noted. Pulses equal to all extremities. Respiratory: No respiratory distress. Painless inspiration. Breath sounds normal. No wheezes/rales/rhonchi noted. Chest nontender. No accessory muscle usage noted or decreased air movement noted. Abdomen: Soft and nontender. Bowel sounds normal in all 4 quadrants. No distention noted. No organomegaly noted. No visible injury noted. Back: No CVA tenderness. Full range of motion noted. Skin: Skin warm and dry. Normal skin color. Normal skin turgor. No rashes/lesions/lacerations noted. Extremities: No lower extremity edema. Extremities exhibit normal range of motion. Extremities nontender. Neuro: cranial nerves 2-12 intact, no focal neural deficits, strength 5/5 to all extremities, No motor deficit. No sensory deficit. NIH Stroke Scale Time: 19:59 Level of Consciousness: Alert Level of Consciousness Questions: Answers both questions correctly Level of Consciousness Commands: Performs both tasks correctly Best Gaze: Normal Visual: No visual loss Facial Palsy: Normal Motor Arm (Right): No drift Motor Arm (Left): No drift Motor Leg (Right): No drift Motor Leg (Left): No drift Limb Ataxia: Absent Sensory: Normal Best Language: No aphasia Dysarthia: Normal Extinction and Inattention: No abnormality Score: 0 Course Course Course Narrative: 61-year-old female presents with an episode of dizziness and left-sided facial numbness and tingling that occurred at 2:45 p.m.. Numbness and dizziness has since resolved, has been in the waiting room for almost 4 hours. NIH stroke scale is 0 at 7:59 p.m., upon patient arrival to her room. 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 Patient is neurovascularly intact, moves all extremities against resistance, and has no other complaints with the exception of having a mild headache that started yesterday. Headache was considered normal for her. No travel, hormone replacement, or family history of stroke. Patient does not take any medications, does not have heart disease, diabetes, or any other comorbidities. 9:[address] scan negative for acute findings requiring emergent intervention. Detailed discussion with patient regarding plan to follow-up with primary care physician as she may need to be referred to Neurology and Cardiology. Patient did verbalize understanding of and agrees to plan of care discharge home. MDM - Dizziness Differential Diagnosis Differential diagnosis: Likely benign paroxysmal positional vertigo, cerebrovascular accident and transient cerebral ischemia Medical Records Attestation: I reviewed the patient's medical records. Lab Data Attestation: I reviewed the patient's lab results. Result diagrams: 06/05/21 16:56 06/05/21 16:56 Labs: Lab Results 06/05/21 06/05/21 06/05/21 Range/Units 16:56 16:56 16:56 WBC 6.1 (4.8-10.8) X10*3/uL RBC 4.61 (4.20-5.50) X10*6/uL Hgb 14.0 (12.0-16.0) g/dl Hct 41.2 (37.0-47.0) % MCV 89.4 (80.0-98.0) fL MCH 30.4 (27.0-33.0) pg MCHC 34.0 (31.0-35.0) g/dl RDW 11.5 (11.0-16.0) % Plt Count 267 (160-400) X10*3/uL MPV 9.4 (9.4-12.3) fL Immature Gran % (Auto) 0.3 (0.0-0.4) % Neut % (Auto) 58.4 (45-73) % Lymph % (Auto) 28.6 (20-40) % Butts % (Auto) 10.9 (2-11) % Eos % (Auto) 1.1 (0-4) % Baso % (Auto) 0.7 (0-2) % Lymph # (Auto) 1.8 (1.2-4.9) X10*3/uL Butts # (Auto) 0.7 (0.1-1.2) X10*3/uL Eos # (Auto) 0.1 (0.0-0.4) X10*3/uL Baso # (Auto) 0.0 (0.0-0.2) X10*3/uL Abs Immat Gran (auto) 0.02 (0.00-0.03) X10*3/uL Absolute Neuts (auto) 3.6 (2.0-8.3) x10*3/uL Absolute Nucleated RBC 0.000 (0.0-0.012) X10*3/uL Nucleated RBC % (auto) 0.0 (0.0-0.2) /100WBC PT (9.9-13.0) SEC INR (0.9-1.1) Sodium 142 (135-145) mmol/L Potassium 4.0 (3.3-5.1) mmol/L Chloride 109 H (96-108) mmol/L Carbon Dioxide 27 (22-29) mmol/L Anion Gap 10 L (12-20) BUN 18 H (9-16) mg/dL Creatinine 0.90 (0.5-1.4) mg/dL Estim Creat Clear Calc 52.5 Estimated GFR > 60 Random Glucose 104 (60-115) mg/dL Calcium 9.7 (8.4-10.2) mg/dL Total Bilirubin (0.0-1.0) mg/dL Direct Bilirubin (0.0-0.5) mg/dL AST (5-31) U/L ALT (0-31) U/L Alkaline Phosphatase (39-117) U/L Troponin I High Sens (<3.5-17.0) ng/L Total Protein (6.5-8.0) g/dL Albumin (3.5-5.0) g/dL Lipase (8-78) U/L Urine Color YELLOW Urine Appearance CLEAR Urine pH 6.0 (5.0-8.0) Ur Specific [place] 1.025 (1.005-1.025) Urine Protein NEG (NEG-TRACE) MG/DL Urine Glucose (UA) NEG (NEG) MG/DL Urine Ketones NEG (NEG) MG/DL Urine Blood 2+ H (NEG) Urine Nitrite NEG (NEG) Ur Leukocyte Esterase NEG (NEG) Urine RBC 5-9 H (0) /HPF Urine WBC 1-4 (0-4) /HPF Ur Squamous Epith Cells 1+ /LPF Urine Bacteria NONE /LPF COVID-19 (ALEJANDRA) (Negative) COVID-19 Clin Com 06/05/21 06/05/21 06/05/21 Range/Units 20:37 20:37 20:37 WBC (4.8-10.8) X10*3/uL RBC (4.20-5.50) X10*6/uL Hgb (12.0-16.0) g/dl Hct (37.0-47.0) % MCV (80.0-98.0) fL MCH (27.0-33.0) pg MCHC (31.0-35.0) g/dl RDW (11.0-16.0) % Plt Count (160-400) X10*3/uL MPV (9.4-12.3) fL Immature Gran % (Auto) (0.0-0.4) % Neut % (Auto) (45-73) % Lymph % (Auto) (20-40) % Butts % (Auto) (2-11) % Eos % (Auto) (0-4) % Baso % (Auto) (0-2) % Lymph # (Auto) (1.2-4.9) X10*3/uL Butts # (Auto) (0.1-1.2) X10*3/uL Eos # (Auto) (0.0-0.4) X10*3/uL Baso # (Auto) (0.0-0.2) X10*3/uL Abs Immat Gran (auto) (0.00-0.03) X10*3/uL Absolute Neuts (auto) (2.0-8.3) x10*3/uL Absolute Nucleated RBC (0.0-0.012) X10*3/uL Nucleated RBC % (auto) (0.0-0.2) /100WBC PT 11.2 (9.9-13.0) SEC INR 1.0 (0.9-1.1) Sodium (135-145) mmol/L Potassium (3.3-5.1) mmol/L Chloride (96-108) mmol/L Carbon Dioxide (22-29) mmol/L Anion Gap (12-20) BUN (9-16) mg/dL Creatinine (0.5-1.4) mg/dL Estim Creat Clear Calc Estimated GFR Random Glucose (60-115) mg/dL Calcium (8.4-10.2) mg/dL Total Bilirubin 0.2 (0.0-1.0) mg/dL Direct Bilirubin < 0.2 (0.0-0.5) mg/dL AST 13 (5-31) U/L ALT 9 (0-31) U/L Alkaline Phosphatase 63 (39-117) U/L Troponin I High Sens (<3.5-17.0) ng/L Total Protein 6.1 L (6.5-8.0) g/dL Albumin 4.0 (3.5-5.0) g/dL Lipase 29 (8-78) U/L Urine Color Urine Appearance Urine pH (5.0-8.0) Ur Specific [place] (1.005-1.025) Urine Protein (NEG-TRACE) MG/DL Urine Glucose (UA) (NEG) MG/DL Urine Ketones (NEG) MG/DL Urine Blood (NEG) Urine Nitrite (NEG) Ur Leukocyte Esterase (NEG) Urine RBC (0) /HPF Urine WBC (0-4) /HPF Ur Squamous Epith Cells /LPF Urine Bacteria /LPF COVID-19 (ALEJANDRA) Negative (Negative) COVID-19 Clin Com See Note 06/05/21 Range/Units 20:37 WBC (4.8-10.8) X10*3/uL RBC (4.20-5.50) X10*6/uL Hgb (12.0-16.0) g/dl Hct (37.0-47.0) % MCV (80.0-98.0) fL MCH (27.0-33.0) pg MCHC (31.0-35.0) g/dl RDW (11.0-16.0) % Plt Count (160-400) X10*3/uL MPV (9.4-12.3) fL Immature Gran % (Auto) (0.0-0.4) % Neut % (Auto) (45-73) % Lymph % (Auto) (20-40) % Butts % (Auto) (2-11) % Eos % (Auto) (0-4) % Baso % (Auto) (0-2) % Lymph # (Auto) (1.2-4.9) X10*3/uL Butts # (Auto) (0.1-1.2) X10*3/uL Eos # (Auto) (0.0-0.4) X10*3/uL Baso # (Auto) (0.0-0.2) X10*3/uL Abs Immat Gran (auto) (0.00-0.03) X10*3/uL Absolute Neuts (auto) (2.0-8.3) x10*3/uL Absolute Nucleated RBC (0.0-0.012) X10*3/uL Nucleated RBC % (auto) (0.0-0.2) /100WBC PT (9.9-13.0) SEC INR (0.9-1.1) Sodium (135-145) mmol/L Potassium (3.3-5.1) mmol/L Chloride (96-108) mmol/L Carbon Dioxide (22-29) mmol/L Anion Gap (12-20) BUN (9-16) mg/dL Creatinine (0.5-1.4) mg/dL Estim Creat Clear Calc Estimated GFR Random Glucose (60-115) mg/dL Calcium (8.4-10.2) mg/dL Total Bilirubin (0.0-1.0) mg/dL Direct Bilirubin (0.0-0.5) mg/dL AST (5-31) U/L ALT (0-31) U/L Alkaline Phosphatase (39-117) U/L Troponin I High Sens < 3.5 (<3.5-17.0) ng/L Total Protein (6.5-8.0) g/dL Albumin (3.5-5.0) g/dL Lipase (8-78) U/L Urine Color Urine Appearance Urine pH (5.0-8.0) Ur Specific [place] (1.005-1.025) Urine Protein (NEG-TRACE) MG/DL Urine Glucose (UA) (NEG) MG/DL Urine Ketones (NEG) MG/DL Urine Blood (NEG) Urine Nitrite (NEG) Ur Leukocyte Esterase (NEG) Urine RBC (0) /HPF Urine WBC (0-4) /HPF Ur Squamous Epith Cells /LPF Urine Bacteria /LPF COVID-19 (ALEJANDRA) (Negative) COVID-19 Clin Com Imaging Data CTA head and neck: Attestation: I personally reviewed and interpreted this imaging study as follows: Radiologist's impression: FINDINGS: CT Head: There is no evidence of acute intracranial hemorrhage or edematous territorial infarction. There is no abnormal attenuation within the brain parenchyma. Frenandez-white matter differentiation is preserved. The ventricles are normal in size and configuration. No evidence for obstructive hydrocephalus. No abnormal mass effect or midline shift. No extra-axial fluid collections. No pathologic intra-axial enhancement or regional oligemia. No acute soft tissue or osseous abnormalities. Mild mucosal thickening of the paranasal sinuses. Periapical lucencies associated with the maxillary right sided 1st molar. The mastoid air cells and middle ear cavities are clear. CT Neck: There is a 1 cm cm hypoattenuating nodule in the left thyroid lobe (no follow-up imaging recommended). The remaining cervical soft tissues are within normal limits. Advanced degenerative arthropathy of the atlantodental articulation. Advanced degenerative disc disease at C5-C6 with disc-osteophyte complex formation. Facet and uncovertebral joint arthropathy leads to osseous encroachment on the neural foramina at C5-C6. CT Upper Chest: The visualized lung apices and upper mediastinum are within normal limits. Neck CTA: Aortic Arch: Normal contour and caliber. Classic 3 vessel branching pattern of the aortic arch. Great Vessel Origins: No significant stenosis of the branch origins. Right Common Carotid Artery: No focal stenosis or occlusion. Cervical Right Internal Carotid Artery: Normal opacification without focal stenosis or occlusion. Left Common Carotid Artery: No focal stenosis or occlusion. Cervical Left Internal Carotid Artery: Normal opacification without focal stenosis or occlusion. Cervical Right Vertebral Artery: No focal stenosis or occlusion. Cervical Left Vertebral Artery: Mildly dominant. No focal stenosis or occlusion. Brain CTA: Moderate venous contamination. Intracranial Internal Carotid Arteries: No focal stenosis or occlusion. Right Anterior Cerebral Artery: Normal A1 segment. Normal opacification of the distal BOO segments. Left Anterior Cerebral Artery: Normal A1 segment. Normal opacification of the distal BOO segments. Anterior Communicating Artery: Normal. Right Middle Cerebral Artery: Normal M1 segment of the MCA without focal stenosis or occlusion. Normal arborization of the distal segments. Left Middle Cerebral Artery: Normal M1 segment of the MCA without focal stenosis or occlusion. Normal arborization of the distal segments. Right Vertebral Artery: Normal V4 segment. Normal opacification of the proximal segments of the posterior inferior cerebellar artery. Left Vertebral Artery: Normal V4 segment. Normal opacification of the proximal segments of the posterior inferior cerebellar artery. Basilar Artery: Normal without focal stenosis or occlusion. Normal appearance of the proximal superior cerebellar arteries. Right Posterior Cerebral Artery: Normal P1 segment. Normal posterior communicating artery. Normal opacification of the distal INVERTEBRATE PALEONTOLOGIST segments. Left Posterior Cerebral Artery: The P1 segment is diminutive. origin of the INVERTEBRATE PALEONTOLOGIST with robust opacification of the posterior communicating artery. Normal opacification of the distal INVERTEBRATE PALEONTOLOGIST segments. Normal opacification of the superior sagittal, straight, transverse, and sigmoid sinuses. CT/CT angio head neck IMPRESSION: 1. No evidence of acute intracranial hemorrhage or edematous territorial infarction. 2. CTA of the head and neck without proximal occlusion or flow-limiting stenosis. ECG Data Attestation: I personally reviewed and interpreted this ECG as follows: ECG interpretation date: 06/05/21 ECG interpretation time: 16:43 Prior ECG tracings: available for review Interpretation: Vent. rate 86 BPM SC interval 138 ms QRS duration 82 ms QT/QTc 378/452 ms P-R-T axes 47 59 57 Normal sinus rhythm Low voltage QRS Borderline ECG When compared with ECG of 16-FEB-2020 04:15, Premature ventricular complexes are no longer Present Discharge Plan Discharge Clinical Impression: Dizziness, Numbness and tingling of left side of face Patient Disposition: Home, Self-Care Instructions: Paresthesia (ED), Dizziness (ED) Additional Instructions: You were evaluated for dizziness and left-sided facial tingling. CT angio of head and neck are negative for acute findings requiring emergent intervention. They did find a small thyroid nodule on the left side and cervical disc degeneration. Please continue to follow-up with your primary care physician for these incidental findings. Please follow-up with Neurology as needed. I referred you to Dr. Serrano. Thank you for choosing this emergency department for evaluation. Please follow-up with primary care physician as needed. Return to the emergency department for any new, concerning, or worsening symptoms. Prescriptions: No Action meclizine 25 mg tablet 25 mg PO TID PRN (Reason: dizziness) Qty: 20 0RF Referrals: Madelin Serrano MD [Physician] - 2 days (Dizziness and facial numbness, negative CTA) Interventions: ED Discharge Assessment Last Done: 06/05/21 22:13 Discharge Date/Time: 06/05/21 22:14
[2021-06-05 20:09] VITALS: BMI 22.2
[2021-06-05] MEDS: iohexoL 350 MG/ML 100 ML INFUS..BTL IV (20:38)
[2021-06-05 20:59] LABS: Prothrombin Time 11.2 SEC (9.9-13.0)
[2021-06-05 21:00] LABS: Alanine Aminotransferase 9 U/L (0-31); Alkaline Phosphatase 63 U/L (39-117); Aspartate Amino Transferase 13 U/L (5-31); Bilirubin Direct < 0.2 mg/dL (0.0-0.5); Bilirubin Total 0.2 mg/dL (0.0-1.0); Lipase 29 U/L (8-78); Total Protein 6.1 g/dL (6.5-8.0)
[2021-06-05 21:02] LABS: COVID-19 Test Negative (Negative)
[2021-06-05 21:06] LABS: Troponin-I High Sensitivity < 3.5 ng/L (<3.5-17.0)
[2021-06-05 21:24] VITALS: BP 115/80; PULSE 81; RESP 14; TEMP 36.7; O2SAT 98
== END 2021-06-05 22:14 | disposition home or self-care (01) ==
PROVIDERS: Nurse Practitioner Family; Emergency Provider Emergency Medicine; PCP Internal Medicine
DX: R42 Dizziness and giddiness (principal); Z20.822 Contact with and (suspected) exposure to COVID-19; R20.2 Paresthesia of skin; E04.1 Nontoxic single thyroid nodule
CPT/HCPCS: 36415; 70496; 70498; 80048; 80076; 81001; 83690; 84484; 85025; 85610; 87635; 93005; 99283; 99284; Q9967

== ENCOUNTER 2021-08-10 07:24 | Outpatient (REF) | payer BC, SELFPAY ==
--- NOTE | ~2021-08-10 | MM_ITS ---
EXAMINATION: MM SCREENING DIGITAL BREAST TOMOSYNTHESIS, BILATERAL CLINICAL INFORMATION: Screening. Asymptomatic. The lifetime risk of breast cancer based on the Tyrer-Cuzick Model is 4%. COMPARISON: Mammography: 08/04/2020, 05/07/2019, 03/05/2018 TECHNIQUE: Digital breast tomosynthesis is performed in both the craniocaudal and mediolateral oblique views along with computer-aided detection (CAD). Synthesized 2D images are generated from the tomosynthesis. FINDINGS: The breasts are heterogeneously dense, which may obscure small masses (ACR BI-RADS breast composition Category c). There are no significant masses, abnormal calcifications, or other abnormalities. Parenchymal pattern is similar to prior studies. There is no developing density or architectural abnormality. The axilla and skin contours are unremarkable. No significant changes. MM/MM tomosynthesis screening BI IMPRESSION: No mammographic evidence of malignancy. ASSESSMENT: BI-RADS 1: Negative RECOMMENDATION: Routine annual mammography screening. This patient's information was entered into a reminder system with a target due date for their next mammogram.
== END 2021-08-10 07:25 | disposition home or self-care (01) ==
LOC: HO.MAMMO 07:24
PROVIDERS: PCP Internal Medicine; Visit Provider Internal Medicine
DX: Z12.31 Encounter for screening mammogram for malignant neoplasm of breast (principal)
CPT/HCPCS: 77063; 77067

== ENCOUNTER 2021-10-18 06:09 | Day surgery (SDC) | payer BC, SELFPAY ==
[2021-10-14 14:50] VITALS: BMI 20.3
--- NOTE | 2021-10-17 10:56 | HO.ANESPROP2 ---
Documented by User: Claudia Palomino NP 10/17/21 10:57 HPI - Anesthesia Eval Consult details Narrative: 61yo F for Colonoscopy PMFSH Past Medical History Medical History (Updated 10/14/21 @ 14:50 by Tita Gan RN) COVID-19 vaccine series completed Elevated cholesterol Hypothyroidism Migraine headache Renal calculi Vertigo Surgical History Surgical History (Updated 10/14/21 @ 14:50 by Tita Gan RN) H/O colonoscopy History of tonsillectomy and adenoidectomy Hx of abdominal surgery Hx of section Social History Social History Are you a primary rn complex care to a significant other at home: No Do you presently have visiting nurse or other home services: No Patient Tobacco Use Status: Never used Tobacco Use of substances other than those prescribed or required for medical reasons: No Have you been hit, kicked, punched, or otherwise hurt by someone within the past year? If so, by whom?: No Are you DNR?: No Advance Directives: No Advance Directives Information Provided: Yes (brochure mailed) Advance Directives on File: No Recently lost weight without trying: No Eating poorly because of decreased appetite: No Nutrition Risks: No Nutritional Risk Poor oral hygiene: No Meds Allergies Allergy/AdvReac Type Severity Reaction Status Date / Time sumatriptan [From IMITREX] Allergy Intermediate HIVES, Verified 10/14/21 14:32 SWELLING azithromycin AdvReac Intermediate Weakness Verified 10/14/21 14:32 Home Medications Medication Instructions Recorded Confirmed Last Taken Type cholecalciferol (vitamin D3) 10 10 mcg PO DAILY 10/14/21 10/14/21 Unknown History mcg (400 unit) capsule (Vitamin D3) Exam Exam Date and Time: October 17, 2021 1056 Height,Weight and Vital Signs: Height 5 ft 2.5 in Weight 51.256 kg Pertinent Lab Results Pertinent Lab Results: Laboratory Tests 06/05/21 06/05/21 16:56 16:56 WBC 6.1 Hgb 14.0 Hct 41.2 Plt Count 267 Sodium 142 Potassium 4.0 Chloride 109 H Carbon Dioxide 27 BUN 18 H Creatinine 0.90 Narrative Narrative: EKG 05/2021 Vent. Rate : 086 BPM ? ? Atrial Rate : 086 BPM ?? P-R Int : 138 ms? QRS Dur : 082 ms ? ? QT Int : 378 ms ? ? ? P-R-T Axes : 047 059 057 degrees ?? QTc Int : 452 ms ? Normal sinus rhythm Low voltage QRS Borderline ECG When compared with ECG of 16-FEB-2020 04:15, Premature ventricular complexes are no longer Present Assessment and Plan Assessment Anesthesia Assessment: Chart Reviewed Documented by User: Chilo Owusu MD 10/18/21 13:10 PMF Past Medical History Medical History (Updated 10/14/21 @ 14:50 by Tita Gan RN) COVID-19 vaccine series completed Elevated cholesterol Hypothyroidism Migraine headache Renal calculi Vertigo Family History Family history of problems with anesthesia: No Surgical History Surgical History (Updated 10/14/21 @ 14:50 by Tita Gan RN) H/O colonoscopy History of tonsillectomy and adenoidectomy Hx of abdominal surgery Hx of section History of Problems with Anesthesia: No Social History Social History Are you a primary rn complex care to a significant other at home: No Do you presently have visiting nurse or other home services: No Patient Tobacco Use Status: Never used Tobacco Use of substances other than those prescribed or required for medical reasons: No Have you been hit, kicked, punched, or otherwise hurt by someone within the past year? If so, by whom?: No Are you DNR?: No Advance Directives: No Advance Directives Information Provided: Yes (brochure mailed) Advance Directives on File: No Recently lost weight without trying: No Eating poorly because of decreased appetite: No Nutrition Risks: No Nutritional Risk Poor oral hygiene: No Meds Allergies Allergy/AdvReac Type Severity Reaction Status Date / Time sumatriptan [From IMITREX] Allergy Intermediate HIVES, Verified 10/14/21 14:32 SWELLING azithromycin AdvReac Intermediate Weakness Verified 10/14/21 14:32 Home Medications Medication Instructions Recorded Confirmed Last Taken Type cholecalciferol (vitamin D3) 10 10 mcg PO DAILY 10/14/21 10/14/21 Unknown History mcg (400 unit) capsule (Vitamin D3) Exam Airway Mallampati Class: II TM Dist: >3cm Neck ROM: Full Loose/Missing/Broken Teeth: Yes (Chipped teeth ) Heart: S1, S2 Lungs: b/l breath soudns Assessment and Plan Assessment Anesthesia Assessment: Anesthesia Plan Discussed Final Anesthetic Review Family History of Problems with Anesthesia: No History of Problems with Anesthesia: No NPO: Yes ASA Class: II Final Preanesthetic Review: No Changes in Pt Med Stat, Meds/Allgs Chart Reviewed, Consent Obtained/Reviewed and Anes Risks/Benef Reviewed Patient Risk: Intermediate Procedure Risk: Intermediate Anesthetic Plan Anesthetic Plan: MAC: Disposition: Standard PACU
[2021-10-18 06:50] VITALS: BP 119/78; PULSE 77; RESP 18; TEMP 37; O2SAT 98
[2021-10-18] MEDS: Lactated Ringers 1,000 ML 100 ML IVCONT (07:03)
--- NOTE | 2021-10-18 08:36 | P.BOP_ITS ---
Brief Operative Note Date of Service: 10/18/21 Pre-op diagnosis: Screening Post-op diagnosis: other (Cecal polyp) Procedure: Colonoscopy to the cecum with biopsy and removal of polyp Surgeon: Jayme Dominguez Anesthesia: MAC Was an Plate And Frame Filter Operator used for this Procedure?: No Estimated blood loss (mL): 2.0 Pathology: other (A. Cecal polyp) Condition: stable Disposition: PACU
[2021-10-18 08:41] VITALS: BP 90/55; PULSE 83; RESP 17; TEMP 36.2; O2SAT 98
[2021-10-18 08:56] VITALS: BP 100/59; PULSE 71; RESP 16; O2SAT 96
[2021-10-18 09:11] VITALS: BP 110/62; PULSE 70; RESP 18; O2SAT 98
[2021-10-18 09:26] VITALS: BP 112/71; PULSE 58; RESP 18; TEMP 36.3; O2SAT 97
--- NOTE | 2021-10-18 18:34 | OP_ITS ---
SURGEON: Jayme Dominguez MD INDICATIONS: The patient presents for evaluation of colorectal cancer screening. Full consent was obtained from her for this, including risks of bleeding and perforation. PREOPERATIVE DIAGNOSIS: Colorectal cancer screening. POSTOPERATIVE DIAGNOSIS: PROCEDURE PERFORMED: Colonoscopy to cecum with biopsy removal of polyp. ESTIMATED BLOOD LOSS: COMPLICATIONS: ANESTHESIA: Monitored anesthesia care. ASSISTANTS: SPECIMENS: POSTOPERATIVE DIAGNOSES: Colorectal cancer screening, colon polyp, diverticulosis and internal hemorrhoids. DESCRIPTION OF PROCEDURE: The patient was placed in the left lateral decubitus position. The digital rectal exam revealed no abnormalities. The Olympus video pediatric colonoscope was entered into the rectum and advanced easily to the cecum. Once in the cecum, I did identify normal-appearing cecal pouch other than a 3 mm polyp, which was biopsied and completely removed with cold biopsy forceps. The remainder of the cecum, including the appendiceal orifice, appeared normal. The ileocecal valve appeared normal. There was transillumination of light deep in the right lower quadrant. The scope was slowly withdrawn assessing all mucosal surfaces carefully. Preparation was excellent. I did not visualize any other polyps, colitis, nor angiodysplasia. There was a mild amount of sigmoid diverticulosis. In the rectum, the scope was retroflexed visualizing internal hemorrhoids, but no other pathology. The rectal mucosa appeared normal. Scope was straightened and withdrawn from the patient. She tolerated the procedure well and was returned to the recovery area in stable condition. IMPRESSION: 1. Small colon polyp, status post biopsy removal. 2. Mild sigmoid diverticulosis. 3. Internal hemorrhoids. PLAN: The results of biopsy will be checked. If this happens to be a tubular adenoma, I would recommend a followup colonoscopy in 5 years. If it is only hyperplastic, I would recommend a followup colonoscopy in 10 years. She will otherwise see me on a p.r.n. basis. MD YFN Palomo/LEONARDO / [id number]
== END 2021-10-18 10:15 | disposition home or self-care (01) ==
PROVIDERS: PCP Internal Medicine; Visit Provider Internal Medicine
PROC: 0DJD8ZZ Inspection of Lower Intestinal Tract, Via Natural or Artificial Opening Endoscopic (ICD-10-PCS; CPT 45378; principal; 2021-10-18 07:30)
DX: Z12.11 Encounter for screening for malignant neoplasm of colon (principal); D12.0 Benign neoplasm of cecum; K57.30 Diverticulosis of large intestine without perforation or abscess without bleeding; K64.8 Other hemorrhoids; G43.909 Migraine, unspecified, not intractable, without status migrainosus; E78.00 Pure hypercholesterolemia, unspecified; E03.9 Hypothyroidism, unspecified; R42 Dizziness and giddiness; Z79.899 Other long term (current) drug therapy; Z88.1 Allergy status to other antibiotic agents; Z88.8 Allergy status to other drugs, medicaments and biological substances; Z87.442 Personal history of urinary calculi
CPT/HCPCS: 45380; 88305; J0131; J2370; J2550

== ENCOUNTER 2021-11-06 16:36 | Outpatient (REF) | payer BC, SELFPAY ==
[2021-11-06 17:19] LABS: Influenza A PCR NEGATIVE (Negative); Influenza B PCR NEGATIVE (Negative); Resp Syncy Virus RNA Qual PCR NEGATIVE (Negative); SARS COV2 PCR INHOUSE POSITIVE (Negative)
== END 2021-11-06 16:37 | disposition home or self-care (01) ==
LOC: HO.LNP 16:36
PROVIDERS: Visit Provider Internal Medicine
DX: Z20.822 Contact with and (suspected) exposure to COVID-19 (principal); R05.9 Cough, unspecified; R50.9 Fever, unspecified
CPT/HCPCS: 0241U

== ENCOUNTER 2022-03-21 05:55 | Outpatient (REF) | payer BC, SELFPAY ==
[2022-03-21 06:04] LABS: MANUAL DIFF FLAG NO
[2022-03-21 07:36] LABS: Eosinophils Absolute Auto 0.2 X10*3/uL (0.0-0.4); Eosinophils Percent Auto 4.3 % (0-4); Hematocrit 40.9 % (37.0-47.0); Hemoglobin 13.8 g/dl (12.0-16.0); Imm Gran Abs Auto 0.01 X10*3/uL (0.00-0.03); Imm Gran Pct Auto 0.2 % (0.0-0.4); Lymphocytes Absolute Auto 1.5 X10*3/uL (1.2-4.9); Lymphocytes Percent Auto 37.1 % (20-40); Mean Corpuscular HGB Conc 33.7 g/dl (31.0-35.0); Mean Corpuscular Hemoglobin 30.2 pg (27.0-33.0); Mean Corpuscular Volume 89.5 fL (80.0-98.0); Mean Platelet Volume 9.6 fL (9.4-12.3); Monocytes Absolute Auto 0.5 X10*3/uL (0.1-1.2); Monocytes Percent Auto 11.1 % (2-11); Neutrophils Absolute Auto 1.9 x10*3/uL (2.0-8.3); Neutrophils Percent Auto 46.3 % (45-73); Platelet Count 294 X10*3/uL (160-400); Red Blood Count 4.57 X10*6/uL (4.20-5.50); Red Cell Distribution Width 11.3 % (11.0-16.0); White Blood Count 4.2 X10*3/uL (4.8-10.8)
[2022-03-21 07:48] LABS: Alanine Aminotransferase 12 U/L (0-31); Albumin Level 4.4 g/dL (3.5-5.0); Alkaline Phosphatase 61 U/L (39-117); Anion Gap 15 (12-20); Aspartate Amino Transferase 15 U/L (5-31); Bilirubin Total 0.8 mg/dL (0.0-1.0); Blood Urea Nitrogen 16 mg/dL (9-16); C Reactive Protein 0.04 mg/dL (< or = 0.50); Calcium 9.7 mg/dL (8.4-10.2); Carbon Dioxide 27 mmol/L (22-29); Chloride 105 mmol/L (96-108); Estimated Glomerular Filt Rate > 60; Glucose Random 89 mg/dL (60-115); Potassium 4.7 mmol/L (3.3-5.1); Sodium 142 mmol/L (135-145); Total Protein 6.4 g/dL (6.5-8.0)
[2022-03-21 08:12] LABS: Free T4 (Free Thyroxine) 1.02 ng/dL (0.71-1.85); Thyroid Stimulating Hormone 2.23 uIU/mL (0.32-4.0)
[2022-03-21 08:14] LABS: Vitamin B12 235 pg/mL (200-900)
== END 2022-03-21 05:56 | disposition home or self-care (01) ==
LOC: HO.LAB 05:55
PROVIDERS: PCP Internal Medicine; Visit Provider Internal Medicine
DX: H53.8 Other visual disturbances (principal); R20.8 Other disturbances of skin sensation
CPT/HCPCS: 36415; 80053; 82550; 82607; 84439; 84443; 85025; 86140

== ENCOUNTER 2022-06-16 11:36 | Outpatient (REF) | payer BC, SELFPAY ==
[2022-06-16 12:52] LABS: Influenza A PCR POSITIVE (Negative); Influenza B PCR NEGATIVE (Negative); Resp Syncy Virus RNA Qual PCR NEGATIVE (Negative); SARS COV2 PCR INHOUSE NEGATIVE (Negative)
== END 2022-06-16 11:37 | disposition home or self-care (01) ==
LOC: HO.LNP 11:36
PROVIDERS: Visit Provider Internal Medicine
DX: R50.9 Fever, unspecified (principal); R52 Pain, unspecified; Z20.822 Contact with and (suspected) exposure to COVID-19
CPT/HCPCS: 0241U

== ENCOUNTER 2022-08-16 07:24 | Outpatient (REF) | payer BC, SELFPAY ==
--- NOTE | ~2022-08-16 | MM_ITS ---
EXAMINATION: MM SCREENING DIGITAL BREAST TOMOSYNTHESIS, BILATERAL CLINICAL INFORMATION: Screening. Asymptomatic. The lifetime risk of breast cancer based on the Tyrer-Cuzick Model is 4%. COMPARISON: Mammography: 08/10/2021, 08/04/2020, 05/07/2019 TECHNIQUE: Digital breast tomosynthesis is performed in both the craniocaudal and mediolateral oblique views along with computer-aided detection (CAD). Synthesized 2D images are generated from the tomosynthesis. FINDINGS: The breasts are heterogeneously dense, which may obscure small masses (ACR BI-RADS breast composition Category c). Fibronodular parenchymal pattern is similar to prior exams. No developing density or interval architectural abnormality. There are no significant masses, abnormal calcifications, or other abnormalities. The axilla and skin contours are unremarkable. MM/MM tomosynthesis screening BI IMPRESSION: No mammographic evidence of malignancy. ASSESSMENT: BI-RADS 1: Negative RECOMMENDATION: Routine annual mammography screening. This patient's information was entered into a reminder system with a target due date for their next mammogram.
== END 2022-08-16 07:25 | disposition home or self-care (01) ==
LOC: HO.MAMMO 07:24
PROVIDERS: PCP Internal Medicine; Visit Provider Internal Medicine
DX: Z12.31 Encounter for screening mammogram for malignant neoplasm of breast (principal)
CPT/HCPCS: 77063; 77067

== ENCOUNTER 2022-09-20 07:08 | Outpatient (REF) | payer BC, SELFPAY ==
[2022-09-20 07:26] LABS: MANUAL DIFF FLAG NO
[2022-09-20 09:03] LABS: Basophils Percent Auto 0.6 % (0-2); Eosinophils Absolute Auto 0.1 X10*3/uL (0.0-0.4); Eosinophils Percent Auto 1.9 % (0-4); Hematocrit 41.7 % (37.0-47.0); Hemoglobin 14.1 g/dl (12.0-16.0); Imm Gran Abs Auto 0.01 X10*3/uL (0.00-0.03); Imm Gran Pct Auto 0.2 % (0.0-0.4); Lymphocytes Absolute Auto 1.4 X10*3/uL (1.2-4.9); Lymphocytes Percent Auto 29.7 % (20-40); Mean Corpuscular HGB Conc 33.8 g/dl (31.0-35.0); Mean Corpuscular Hemoglobin 30.3 pg (27.0-33.0); Mean Corpuscular Volume 89.5 fL (80.0-98.0); Mean Platelet Volume 9.8 fL (9.4-12.3); Monocytes Absolute Auto 0.4 X10*3/uL (0.1-1.2); Monocytes Percent Auto 9.3 % (2-11); Neutrophils Absolute Auto 2.8 x10*3/uL (2.0-8.3); Neutrophils Percent Auto 58.3 % (45-73); Platelet Count 269 X10*3/uL (160-400); Red Blood Count 4.66 X10*6/uL (4.20-5.50); Red Cell Distribution Width 11.8 % (11.0-16.0); White Blood Count 4.7 X10*3/uL (4.8-10.8)
[2022-09-20 09:47] LABS: Alanine Aminotransferase 13 U/L (0-31); Albumin Level 4.2 g/dL (3.5-5.0); Alkaline Phosphatase 57 U/L (39-117); Anion Gap 16 (12-20); Aspartate Amino Transferase 14 U/L (5-31); Bilirubin Total 0.7 mg/dL (0.0-1.0); Blood Urea Nitrogen 20 mg/dL (9-16); Calcium 9.4 mg/dL (8.4-10.2); Carbon Dioxide 23 mmol/L (22-29); Chloride 109 mmol/L (96-108); Cholesterol 226 mg/dL; Estimated Glomerular Filt Rate > 60; Glucose Fasting 88 mg/dL (60-99); HDL Cholesterol 66 mg/dL; LDL Cholesterol Calculated 150 mg/dl; Potassium 4.2 mmol/L (3.3-5.1); Sodium 144 mmol/L (135-145); Total Protein 6.1 g/dL (6.5-8.0); Triglycerides 53 mg/dL; Vitamin D 25-OH Total 33.1 ng/mL (>30)
== END 2022-09-20 07:09 | disposition home or self-care (01) ==
LOC: HO.LAB 07:08
PROVIDERS: PCP Internal Medicine; Visit Provider Internal Medicine
DX: Z00.00 Encounter for general adult medical examination without abnormal findings (principal); E78.00 Pure hypercholesterolemia, unspecified; E55.9 Vitamin D deficiency, unspecified
CPT/HCPCS: 36415; 80053; 80061; 82306; 85025

== ENCOUNTER 2023-06-12 15:19 | Outpatient (REF) | payer BC, SELFPAY ==
--- NOTE | ~2023-06-12 | US_ITS ---
EXAMINATION: US VENOUS ULTRASOUND WITH DOPPLER LOWER EXTREMITY, LEFT CLINICAL INFORMATION: Left leg pain. COMPARISON: None available. TECHNIQUE: Ultrasound of the deep veins is performed from the hip to the calf with compression sonography and color and pulse Doppler assessment. Spectral analysis with color-flow imaging is performed. FINDINGS: There is normal venous compression and respiratory variation and augmented flow. The visualized common femoral vein, superficial femoral vein, profunda femoral vein, popliteal vein, and the trifurcation region shows no evidence of deep venous thrombosis. Left suprapatellar joint effusion with fluid tracking to the proximal calf. If the patient's symptoms persist, followup ultrasound in 5 days 7 days might be of value to exclude proximal propagation from a non-visualized calf vein. US/US venous duplex LE IMPRESSION: No DVT demonstrated in the left lower extremity.
[2023-06-12 18:06] LABS: Appearance Urine Clear; Color Urine Yellow; Glucose Urine UA Negative (Negative); Leukocyte Esterase Urine Small (1+) (Negative); Nitrite Urine Negative (Negative); PH 7.5 (5.0-9.0); UMIC TRIGGER UA YES; Urine Blood Trace (Negative); Urine Ketones Negative (Negative); Urine Protein Negative (Neg-Trace)
[2023-06-12 18:20] LABS: Bacteria Urine None Seen (None Seen); Hyaline Casts Urine 0-2 /LPF (0-2); RBC Urine 0-2 /HPF (0-2); Squamous Epithelial Cell Urine 0-2 /HPF (0-2); WBC Urine 0-5 /HPF (0-5)
== END 2023-06-12 15:20 | disposition home or self-care (01) ==
LOC: HO.US 15:19
PROVIDERS: PCP Internal Medicine; Visit Provider Internal Medicine
DX: M79.605 Pain in left leg (principal); R30.0 Dysuria
CPT/HCPCS: 81001; 87086; 93971

== ENCOUNTER 2023-08-22 07:39 | Outpatient (REF) | payer BC, SELFPAY | END 2023-08-22 07:40 | disposition home or self-care (01) | LOC: HO.MAMMO 07:39 | PROVIDERS: PCP Internal Medicine; Visit Provider Internal Medicine | DX: Z12.31 Encounter for screening mammogram for malignant neoplasm of breast (principal) | CPT/HCPCS: 77063; 77067 ==

== ENCOUNTER → 2023-08-22 07:45 | Outpatient (BNV) | payer BC, SELFPAY | PROVIDERS: PCP Internal Medicine; Visit Provider Radiology Diagnostic Radiology | DX: Z12.31 Encounter for screening mammogram for malignant neoplasm of breast (principal) | CPT/HCPCS: 77063; 77067 ==

== ENCOUNTER 2023-09-05 07:01 | Outpatient (REF) | payer BC, SELFPAY ==
[2023-09-05 07:12] LABS: MANUAL DIFF FLAG NO
[2023-09-05 07:56] LABS: Basophils Percent Auto 0.7 % (0-2); Eosinophils Absolute Auto 0.1 X10*3/uL (0.0-0.4); Eosinophils Percent Auto 2.8 % (0-4); Hematocrit 40.6 % (37.0-47.0); Hemoglobin 13.6 g/dl (12.0-16.0); Imm Gran Abs Auto 0.01 X10*3/uL (0.00-0.03); Imm Gran Pct Auto 0.2 % (0.0-0.4); Lymphocytes Absolute Auto 1.5 X10*3/uL (1.2-4.9); Mean Corpuscular HGB Conc 33.5 g/dl (31.0-35.0); Mean Corpuscular Hemoglobin 30.5 pg (27.0-33.0); Mean Platelet Volume 9.7 fL (9.4-12.3); Monocytes Absolute Auto 0.4 X10*3/uL (0.1-1.2); Monocytes Percent Auto 10.1 % (2-11); Neutrophils Absolute Auto 2.3 x10*3/uL (2.0-8.3); Neutrophils Percent Auto 52.2 % (45-73); Platelet Count 270 X10*3/uL (160-400); Red Blood Count 4.46 X10*6/uL (4.20-5.50); Red Cell Distribution Width 11.6 % (11.0-16.0); White Blood Count 4.4 X10*3/uL (4.8-10.8)
[2023-09-05 08:37] LABS: Alanine Aminotransferase 10 U/L (0-31); Albumin Level 4.2 g/dL (3.5-5.0); Alkaline Phosphatase 53 U/L (39-117); Anion Gap 10 (12-20); Aspartate Amino Transferase 16 U/L (5-31); Bilirubin Total 0.7 mg/dL (0.0-1.0); Blood Urea Nitrogen 13 mg/dL (9-16); Calcium 9.5 mg/dL (8.4-10.2); Carbon Dioxide 29 mmol/L (22-29); Chloride 108 mmol/L (96-108); Cholesterol 215 mg/dL (<200); Estimated Glomerular Filt Rate > 60; Glucose Fasting 90 mg/dL (60-99); HDL Cholesterol 55 mg/dL (>40); LDL Cholesterol Calculated 145 mg/dL (<100); Magnesium 2.2 mg/dL (1.6-2.6); Potassium 4.1 mmol/L (3.3-5.1); Sodium 143 mmol/L (135-145); Total Protein 6.4 g/dL (6.5-8.0); Triglycerides 76 mg/dL (<150)
[2023-09-05 08:58] LABS: T4 Thyroxine 7.6 ug/dL (4.5-12.0); Thyroid Stimulating Hormone 2.28 uIU/mL (0.32-4.0)
== END 2023-09-05 07:02 | disposition home or self-care (01) ==
LOC: HO.LAB 07:01
PROVIDERS: PCP Internal Medicine; Visit Provider Internal Medicine
DX: E78.70 Disorder of bile acid and cholesterol metabolism, unspecified (principal); I49.3 Ventricular premature depolarization; Z86.39 Personal history of other endocrine, nutritional and metabolic disease
CPT/HCPCS: 36415; 80053; 80061; 83735; 84436; 84443; 85025

== ENCOUNTER → 2023-09-24 15:00 | Outpatient (REF) | payer BC, SELFPAY ==
--- NOTE | 2023-09-24 15:03 | CA_ITS ---
Transthoracic Echocardiogram Patient (Last, First, Middle): Brandy Lal M Gender: Female Date of : 1960 Age: 63 Procedure Date: 09/24/2023 Procedure Type: Transthoracic Echocardiogram Location: OP Height: 157.48 cm Weight: 50.8 kg BSA: 1.49 m2 Heart Rate: bpm BP: 118 / 68 mmHg Furniture Servicer: SB Referring MD: Abilio Rolle MD Sales Account Executive: Ra Quigley MD Symptoms: 149.49 PVCs Study Quality: Adequate ECG Rhythm: NSR with Frequent ventricular premature beats Conclusions: - 1. Normal LV ejection fraction of 65-70% with grade 1 diastolic dysfunction 2. Normal cardiac valvular Dopplers next 3. Normal RV systolic pressure 4. No gross pericardial effusion Findings Left Ventricle Normal left ventricular size, thickness, and systolic function. The visually estimated ejection fraction is between 65-70%. Spectral Doppler is indicative of an impaired relaxation filling pattern. E/E prime ratio is <8, consistent with normal filling pressures. Evidence suggests grade I (mild) diastolic dysfunction. Right Ventricle Normal right ventricular cavity size and systolic function. Atria Both atria are normal in size. There is lipomatous hypertrophy of the interatrial septum. There is no evidence of interatrial shunt. Aortic Valve Normal aortic valve structure and function. There is no aortic valve stenosis. There is no aortic valve regurgitation. Mitral Valve Normal mitral valve structure and function. There is trace mitral valve regurgitation. There is no mitral valve stenosis. Pulmonic Valve The pulmonic valve is likely normal. There is no pulmonic valve regurgitation. Tricuspid Valve Normal tricuspid valve structure. There is mild tricuspid valve regurgitation. The right ventricular systolic pressure is 19 mmHg. Normal right atrial pressure. There is no evidence of pulmonary hypertension. Great Vessels All visible segments of the aorta are normal in size. The pulmonary artery was not well visualized. There is no dilatation of the ascending aorta measuring 3.30 cm. Venous The inferior vena cava is normal in size and collapses greater than 50% with inspiration. Pericardium/Pleural There is no evidence of pericardial effusion. Prior Study Comparison No prior study available for comparison. Measurements 2D Linear Measurements IVSd: 0.81 0.6-0.9/0.6-1.0 cm LVIDd: 4.35 3.9-5.3/4.2-5.9 cm LVIDd Index: 2.92 2.4-3.2/2.2-3.1 cm/m2 LVIDs: 2.71 2.0-3.6 cm LVPWd: 0.64 0.7-1.1 cm LA Diam: 3.10 2.7-3.8/3.0-4.0 cm LAIDs Index: 2.08 1.5-2.3 cm/m2 LV Mass: 117.10 67-162/88-224 g LV Mass Index: 78.59 43-95/49-115 g/m2 LVOT Diam: 2.10 3.0+(-)1.3 cm 2D Systolic Function EF 4C: 61.30 >55% EF 2C: 71.90 >55% EF BiP: 66.90 >55% Mitral Valve MV Pk E: 0.63 MV PK A: 0.91 MV Decel Time: 157.00 E/A: 0.70 E'Lateral: 9.03 E'Medial: 5.98 E/E' Med: 10.50 E/E' Lat: 7.00 PHT: 46.00 MVA PHT: 4.78 Decel Victoria: 4.01 Aortic Valve AoV Pk Don[place]on: 0.93 AoV Pk Grad: 3.00 RAMON: 3.03 LVOT LVOT Pk Don[place]on: 0.83 LVOT Mn Don[place]on: 0.57 LVOT VTI: 0.19 LVOT Pk Grad: 3.00 LVOT Mn Grad: 1.00 LVOT Diam: 2.10 LVOT Area: 3.46 Diastolic Function MV Pk E: 0.63 MV Pk A: 0.91 E/A: 0.70 E'Medial: 5.98 E/E' Med: 10.50 E' Laterial: 9.03 E/E' Lat: 7.00 Right Ventricle TAPSE (mm): 27.90 TVS' Donavon: 13.30 Tricuspid Valve TR Pk Donavon: 2.01 TR Pk Grad: 16.00 RA Press: 3.00 RVSP: 19.00 Great Vessels Aorta Sinus of Valsalva: 3.20 2.0-3.5 cm Ao Asc: 3.30 2.1-3.4 cm Ao Arch: 2.50 Pulmonary Veins Pulm Vein S/D 1.90 Pulmonary Valve PV Pk Donavon: 0.73 Peak PV Grad: 2.00 Updated in Other Vendor System with Status of Final Ra Quigley MD electronically signed on 09/24/2023 6:19:15 PM with status of Final
== END ==
LOC: HO.CARD 15:00
PROVIDERS: PCP Internal Medicine; Visit Provider Internal Medicine
DX: I49.49 Other premature depolarization (principal)
CPT/HCPCS: 93306

== ENCOUNTER → 2023-09-24 15:03 | Outpatient (BNV) | payer BC, SELFPAY | PROVIDERS: PCP Internal Medicine; Visit Provider Internal Medicine Cardiovascular Disease | DX: I36.1 Nonrheumatic tricuspid (valve) insufficiency (principal); R93.1 Abnormal findings on diagnostic imaging of heart and coronary circulation | CPT/HCPCS: 93306 ==

== ENCOUNTER 2024-03-21 13:55 | Outpatient (REF) | payer BC, SELFPAY ==
--- NOTE | ~2024-03-21 | XR_ITS ---
EXAMINATION: XR SINUSES CLINICAL INFORMATION: Sinus pain COMPARISON: CT angiogram head and neck May 2021 TECHNIQUE: 3 views of the sinuses were obtained. FINDINGS: Paranasal sinuses appear clear without air-fluid levels. No fractures are identified. No radiodense foreign bodies. XR/XR sinus min 3V IMPRESSION: Unremarkable examination. Electronically signed by: Devin Conde MD 03/21/2024 05:16 PM EST
== END 2024-03-21 13:56 | disposition home or self-care (01) ==
LOC: HO.XRAY 13:55
PROVIDERS: PCP Internal Medicine; Visit Provider Internal Medicine
DX: J34.89 Other specified disorders of nose and nasal sinuses (principal)
CPT/HCPCS: 70220

== ENCOUNTER 2024-04-04 15:21 | Outpatient (REF) | payer BC, SELFPAY ==
[2024-04-05 10:39] LABS: HPV 16,18/45 See PAP report
== END 2024-04-04 15:22 | disposition home or self-care (01) ==
LOC: HO.LNP 15:21
PROVIDERS: PCP Internal Medicine; Visit Provider Obstetrics & Gynecology
DX: Z01.419 Encounter for gynecological examination (general) (routine) without abnormal findings (principal); R31.29 Other microscopic hematuria
CPT/HCPCS: 81002; 87086; 87624; 88175

== ENCOUNTER 2024-04-04 15:21 | Outpatient (AMB) | payer BC, SELFPAY ==
--- NOTE | 2024-04-04 15:22 | MHC.OFFVIS ---
Vital Signs 04/04/24 15:25 Height 5 ft 2.5 in Weight 112 lb BMI 20.2 BP 118/72 Intake Visit Reasons: New patient Annual/DO NOT RS Intake Note: Per patient, last pap smear in 2016. Allergies sumatriptan [From IMITREX] Allergy (Intermediate, Verified 10/14/21 14:32) HIVES, SWELLING azithromycin Adverse Reaction (Intermediate, Verified 10/14/21 14:32) Weakness HPI Comments Details: Presenting for annual exam. Complaining of urinary frequency and dysuria over the last 2 days Last Pap/HPV was negative in 05/27 Last Mammogram was BI-RADS 1 in 09/01 Last Colonoscopy was in 10/30, the recommendation was to repeat in 3 years according to the patient [facility] Medical History (Updated 04/04/24 @ 15:44 by Reji Moody MD) COVID-19 vaccine series completed Hypothyroidism Renal calculi Elevated cholesterol Migraine headache Vertigo Surgical History (Updated 10/14/21 @ 14:50 by Tita Gan RN) Hx of abdominal surgery History of tonsillectomy and adenoidectomy H/O colonoscopy Hx of section Social History Are you a primary day care home mother to a significant other at home: No Do you presently have visiting nurse or other home services: No Patient Tobacco Use Status: Never used Tobacco Female Reproductive History Menstrual Total pregnancies: 2 Full term: 2 Date of Mammogram: 08/22/23 (bi rad 1) Review of Systems Const All systems reviewed & are unremarkable except as noted in HPI and below Card Reports as per HPI Resp Reports as per HPI GI Reports as per HPI and Reports no additional complaints Reports as per HPI Physical Exam Vital Signs: Last Vital Signs BP 118/72 04/04/24 15:25 Const General: cooperative, healthy appearing and comfortable Chest Chest palpation & inspection: normal inspection of the chest and normal palpation of entire chest wall Breast/axilla inspection: normal inspection of the breasts and normal inspection of the axillae Breast/axilla palpation: normal palpation of the breasts, normal palpation of the axillae and no axillary lymphadenopathy Resp Effort & Inspection: normal respiratory effort Auscultation: clear to auscultation bilaterally Percussion: percussion normal Cardio Palpation: normal PMI Rate: regular rate Rhythm: regular rhythm Heart sounds: no murmurs and no rubs Peripheral pulses: Peripheral pulses 2+ throughout GI Inspection: Yes normal to inspection Palpation (GI): Soft to palpation, nontender, no guarding, not rigid and No hepatosplenomegaly present Percussion: Yes normal to percussion Auscultation: normal bowel sounds Rectal Exam - Female: deferred General: Yes bladder normal to palpation External Female Exam: No lesion Speculum Exam - Vagina: normal appearance of the vagina, normal palpation, normal vaginal discharge and not erythematous Speculum Exam - Cervix: normal appearance of the cervix and normal palpation Bimanual exam- vagina & uterus: normal bimanual exam, normal palpation, uterine size normal, bladder normal to palpation, consistency normal and normal palpation Bimanual Exam- Adnexa, other: normal adnexae, no masses and no tenderness Assessment & Plan Assessment & Plan (1) Well woman exam: Code(s): Z01.419 - Encounter for gynecological examination (general) (routine) without abnormal findings Category: Medical Plan: Co testing done. Counseled the patient about the recommended dietary allowance of 1200 mg of Calcium & 600 IU of vitamin D. Instructions given to patient to schedule her next screening Mammogram in 09/02. The patient was instructed to perform monthly self-breast exams and schedule annual exam in a year. All questions answered and the patient verbalized understanding. (2) Microscopic hematuria: Code(s): R31.29 - Other microscopic hematuria Category: Medical Plan: Urine dip showed microscopic hematuria, urine culture sent. Will treat with Macrobid 100 mg p.o. b.i.d. for 5 days and Will repeat urine dip in 2 weeks. Discussed with the patient the possible causes of microscopic hematuria including but not limited to: interstitial cystitis, polyps, stones, masses, urethral inflammatory processes and others. If Urine Culture is negative and repeat urine dip in 2 weeks shows persistent microscopic hematuria, will proceed with CT abdomen/pelvis and urology referral. Instructions given the patient to schedule a 2 week urine dip follow-up appointment. All questions answered and the patient verbalized understanding. Orders: Orders HPV High risk Today Z01.419 - Encounter for gynecological examination (general) (routine) without abnormal findings Urine Culture Today R31.29 - Other microscopic hematuria Pap Smear Today Z01.419 - Encounter for gynecological examination (general) (routine) without abnormal findings AMB Urinalysis Dipstick Today R31.29 - Other microscopic hematuria Medications: New nitrofurantoin monohyd/m-cryst 100 mg (Macrobid) 100 mg PO BID 5 days 10 caps 0RF Coding Level of Care Code Est Pt Level 3 (05418) New Pt Prev Care 40-64y(80661) Diagnoses Well woman exam Z01.419 Microscopic hematuria R31.29
[2024-04-04 15:25] VITALS: BP 118/72; BMI 20.2
== END 2024-04-04 15:58 | disposition home or self-care (01) ==
PROVIDERS: PCP Internal Medicine; Visit Provider Obstetrics & Gynecology
DX: Z01.419 Encounter for gynecological examination (general) (routine) without abnormal findings (principal); R31.29 Other microscopic hematuria
CPT/HCPCS: 99213; 99386

== ENCOUNTER → 2024-04-20 15:49 | Outpatient (AMB) | payer BC, SELFPAY ==
[2024-04-20 15:58] VITALS: BP 118/72
--- NOTE | 2024-04-20 15:58 | MHC.OFFVIS ---
Vital Signs 04/20/24 15:58 BP 118/72 Intake Visit Reasons: urine dip Supervisor Lens Generating: Supervisor Lens Generating Present (Constance) Accompanied by: Self / Same As Patient Allergies sumatriptan [From IMITREX] Allergy (Intermediate, Verified 04/20/24 15:58) HIVES, SWELLING azithromycin Adverse Reaction (Intermediate, Verified 04/20/24 15:58) Weakness HPI Comments Details: Presenting for repeat urine dip. Last visit urine dip showed large microscopic hematuria, urine culture done was negative. PFSH Medical History COVID-19 vaccine series completed Hypothyroidism Renal calculi Elevated cholesterol Migraine headache Vertigo Surgical History Hx of abdominal surgery History of tonsillectomy and adenoidectomy H/O colonoscopy Hx of section Social History Are you a primary director career services to a significant other at home: No Do you presently have visiting nurse or other home services: No Patient Tobacco Use Status: Never used Tobacco Review of Systems Const All systems reviewed & are unremarkable except as noted in HPI and below Reports as per HPI and Reports no additional complaints GI Reports no additional complaints Reports no additional complaints Physical Exam Vital Signs: Last Vital Signs BP 118/72 04/20/24 15:58 Assessment & Plan Assessment & Plan (1) Microscopic hematuria: Code(s): R31.29 - Other microscopic hematuria Category: Medical Plan: Repeat urine dip showed large amount of microscopic hematuria, CT scan of abdomen and pelvis ordered, urology referral placed. Instructed the patient to call our office back in case a referral appointment is not scheduled, missed or canceled so that we will assist on rescheduling another appointment, the patient verbalized understanding agreed with the plan. Orders: Orders CT abdomen pelvis wo/w IV con Today R31.29 - Other microscopic hematuria Referrals Urology Referral R31.29 - Other microscopic hematuria Coding Level of Care Code Est Pt Level 3 (14141) Diagnoses Microscopic hematuria R31.29
--- OUTSIDE RECORDS SUMMARY | 2024-04-21 03:04 | XMS_ITS | Patient Health Record ---
Author Organization [facility] Address [address] [place] [address] Care Team Providers Care International Guest Coordinator Name Role Phone Abilio Rolle MD Primary Care Provider Jayme Gandhi Unavailable [phone] ALLERGIES Allergen (clinical drug ingredient) Drug/Non Drug Allergy documented on EMR Reaction Allergy Type Onset Date Status sumatriptan Imitrex Unknown Drug Allergy Activ e REASON FOR REFERRAL No Information MEDICATIONS Medication SIG (Take, Route, Fr equency, Duration) Notes Start Date End Date Status Vitamin D 400 UNIT 1 capsule Orally Onc e a day for 30 day(s) Active IMMUNIZATIONS Vaccine Route Administration Date Status Comme nts Influenza Unknown 08/21/2021 Refused SOCIAL HISTORY Tobacco Use: Social History Observation Description Date Details (start date - stop date) Never Smoker NA - NA Sex Assigned At : Social History Observation Description Sex Assigned At Unknown Tobacco Use/Smoking Question Answer Notes Patient is a nonsmoker Alcohol Screen Question Answer Notes Did you have a drink containing alcohol in the p ast year? No Points 0 Interpretation Negative PROBLEMS Problem Type ICD Code Onset Dates Problem Status W/U Status Risk SNOMED Code Notes Problem Encounter for screening for malignant neoplasm of colon (Z12.11) Active confirmed 347273706 Problem Pre-procedural examination (Z01.818) Active confirmed 483757276338745 Problem Diverticulosis of colon (K57.30) Active confirmed Diverticulosi s of colon (000024603) PLAN OF TREATMENT Future Test Test Name Order Date COLONOSCOPY 08/21/2021 Insurance Providers Payer Name Payer Address Payer Phone Subscriber Number Group Number Insured Name Patient Relationship to Insured Coverage Start Date Coverage End Date [facility] [address] [place], [place] [id number] [phone] [id number] HERMILO NELSON Self - patient is the insured MEDICAL (GENERAL) HISTORY Medical History History ICD Code Negative colonoscopy at age [address] Villegas Denies [place],DM,CVA,Lung disease,renal dise ase Vertigo-intermittent Surgical History Surgery Date(Month/Year) 2 C-sections Tonsils and adenoids
== END ==
LOC: HO.HWS 15:49
PROVIDERS: PCP Internal Medicine; Visit Provider Obstetrics & Gynecology
DX: R31.29 Other microscopic hematuria (principal)
CPT/HCPCS: 99213

== ENCOUNTER → 2024-04-20 15:49 | Outpatient (BNVA) | payer BC, SELFPAY | PROVIDERS: PCP Internal Medicine; Visit Provider Obstetrics & Gynecology ==

== ENCOUNTER 2024-05-17 16:17 | Outpatient (REF) | payer BC, SELFPAY ==
[2024-05-17 17:27] LABS: Appearance Urine Clear; Color Urine Yellow; Glucose Urine UA Negative (Negative); Leukocyte Esterase Urine Small (1+) (Negative); Nitrite Urine Negative (Negative); PH 6.5 (5.0-9.0); UMIC TRIGGER UA YES; Urine Blood Small (1+) (Negative); Urine Ketones Negative (Negative); Urine Protein Negative (Neg-Trace)
[2024-05-17 17:49] LABS: Blood Urea Nitrogen 23 mg/dL (9-16); Estimated Glomerular Filt Rate > 60
[2024-05-17 18:49] LABS: Bacteria Urine None Seen (None Seen); Hyaline Casts Urine 0-2 /LPF (0-2); Squamous Epithelial Cell Urine 0-2 /HPF (0-2)
--- OUTSIDE RECORDS SUMMARY | 2024-05-17 19:34 | XMS_ITS | Patient Health Record ---
Author Organization [facility] Address [address] [place] [address] Care Team Providers Care Camper Assembler Name Role Phone Abilio Rolle MD Primary Care Provider Jayme Gandhi Unavailable [phone] ALLERGIES Allergen (clinical drug ingredient) Drug/Non Drug [...] malignant neoplasm of colon (Z12.11) Active confirmed [id number] Problem Pre-procedural examination (Z01.818) Active confirmed [id number] Problem Diverticulosis of colon (K57.30) Active confirmed Diverticulosi s of colon (697325211) PLAN OF TREATMENT Future Test Test Name Order Date COLONOSCOPY 08/21/2021 Insurance Providers Payer Name Payer Address Payer Phone Subscriber Number Group Number Insured Name Patient Relationship to Insured Coverage Start Date Coverage End Date [facility] [address] [place], [place] [id number] HERMILO NELSON Self - patient is the insured MEDICAL (GENERAL) HISTORY Medical History History ICD Code Negative colonoscopy at age [address] Villegas Denies [place],DM,CVA,Lung disease,renal dise ase Vertigo-intermittent Surgical History Surgery Date(Month/Year) 2 C-sections Tonsils and adenoids
== END 2024-05-17 16:18 | disposition home or self-care (01) ==
LOC: HO.LAB 16:17
PROVIDERS: Absent Provider Obstetrics & Gynecology; PCP Internal Medicine; Visit Provider Internal Medicine
DX: R31.29 Other microscopic hematuria (principal)
CPT/HCPCS: 36415; 81001; 82565; 84520; 87086

== ENCOUNTER 2024-06-15 08:46 | Outpatient (REF) | payer BC, SELFPAY ==
[2024-06-15 17:10] LABS: Urine Cytology See Pathology rpt
== END 2024-06-15 08:47 | disposition home or self-care (01) ==
LOC: HO.LAB 08:46
PROVIDERS: PCP Internal Medicine; Visit Provider Nurse Practitioner Family
DX: R31.29 Other microscopic hematuria (principal)
CPT/HCPCS: 51798; 81003; 88112

== ENCOUNTER 2024-06-17 07:42 | Outpatient (REF) | payer BC, SELFPAY ==
--- OUTSIDE RECORDS SUMMARY | 2024-06-17 07:44 | XMS_ITS | Patient Health Record ---
Author Organization [facility] Address [address] [place] [address] Care Team Providers Care Sexual Assault Nurse Name Role Phone Abilio Rolle MD Primary Care Provider Jayme Gandhi Unavailable [phone] ALLERGIES Allergen (clinical drug ingredient) Drug/Non Drug [...] malignant neoplasm of colon (Z12.11) Active confirmed [id number] Problem Pre-procedural examination (Z01.818) Active confirmed [id number] Problem Diverticulosis of colon (K57.30) Active confirmed Diverticulosi s of colon (919598123) PLAN OF TREATMENT Future Test Test Name Order Date COLONOSCOPY 08/21/2021 Insurance Providers Payer Name Payer Address Payer Phone Subscriber Number Group Number Insured Name Patient Relationship to Insured Coverage Start Date Coverage End Date [facility] [address] [place], [place] [id number] HERMILO NELSON Self - patient is the insured MEDICAL (GENERAL) HISTORY Medical History History ICD Code Negative colonoscopy at age [address] Villegas Denies [place],DM,CVA,Lung disease,renal dise ase Vertigo-intermittent Surgical History Surgery Date(Month/Year) 2 C-sections Tonsils and adenoids
[2024-06-17] MEDS: iohexoL 350 MG/ML 100 ML INFUS..BTL 85 ML IV (09:03)
== END 2024-06-17 07:43 | disposition home or self-care (01) ==
LOC: HO.CT 07:42
PROVIDERS: PCP Internal Medicine; Visit Provider Obstetrics & Gynecology
DX: R31.29 Other microscopic hematuria (principal)

== ENCOUNTER → 2024-06-17 07:44 | Outpatient (BNV) | payer BC, SELFPAY | PROVIDERS: PCP Internal Medicine; Visit Provider Radiology Diagnostic Radiology | DX: R31.29 Other microscopic hematuria (principal); N13.2 Hydronephrosis with renal and ureteral calculous obstruction | CPT/HCPCS: 74178 ==

== ENCOUNTER 2024-06-20 16:00 | Outpatient (AMB) | payer BC, SELFPAY ==
--- NOTE | 2024-06-20 16:00 | MHC.OFFVIS ---
Vital Signs 06/20/24 16:02 Height 5 ft 2.5 in Weight 112 lb BMI 20.2 Intake Visit Reasons: CT scan results Allergies sumatriptan [From IMITREX] Allergy (Intermediate, Verified 06/15/24 09:58) HIVES, SWELLING azithromycin Adverse Reaction (Intermediate, Verified 06/15/24 09:58) Weakness HPI Comments Details: Presenting for follow-up CT scan done on 06/17/2024 and showed the following: IMPRESSION: Moderate to severe right hydroureteronephrosis secondary to a cluster of 7 x 8 mm calculi in the mid right ureter with questionable associated inflammatory process. Nonobstructing nephrolithiasis, left kidney. Hypodense lesions, right hepatic lobe. Consider hemangioma versus cyst versus hamartoma. Leiomyomata uteri. Probable complex cystic lesion right adnexa. [facility] Medical History (Updated 06/20/24 @ 16:16 by Reji Moody MD) COVID-19 vaccine series completed Hypothyroidism Renal calculi Elevated cholesterol Migraine headache Vertigo Surgical History Hx of abdominal surgery History of tonsillectomy and adenoidectomy H/O colonoscopy Hx of section Family History (Updated 06/15/24 @ 09:35 by BRITTA Robert) Maternal Aunt Urinary bladder cancer Social History Are you a primary care administrative tech to a significant other at home: No Do you presently have visiting nurse or other home services: No Patient Tobacco Use Status: Never used Tobacco Review of Systems Const All systems reviewed & are unremarkable except as noted in HPI and below Reports as per HPI and Reports no additional complaints GI Reports no additional complaints Reports no additional complaints Physical Exam Vital Signs: BMI result Body Mass Index 20.2 Assessment & Plan Assessment & Plan (1) Renal calculi: Comment: With moderate to severe hydro ureteronephrosis Code(s): N20.0 - Calculus of kidney Category: Medical Plan: Discussed with the patient the finding on CT scan showing multiple renal calculi will moderate to severe hydro ureteronephrosis, the patient has an appointment with Urology scheduled on the 02 July, appointment moved to an earlier date on 06/24/2024. Instructions given the patient to call or go to emergency room in case flank pain fever an other concerns (2) Complex ovarian cyst: Code(s): N83.299 - Other ovarian cyst, unspecified side Category: Medical Plan: Discussed with the patient the finding on CT scan showing a possible complex ovarian cyst, pelvic ultrasound ordered. Instructions given the patient to schedule an ultrasound follow-up appointment within 2 weeks (3) Liver lesion, right lobe: Code(s): K76.9 - Liver disease, unspecified Category: Medical Plan: Discussed with the patient the finding on CT scan showing a right hepatic lesion, recommended to contact her PCP for further management Orders: Orders US pelvic and transvaginal Today N83.299 - Other ovarian cyst, unspecified side Coding Level of Care Code Est Pt Level 3 (37598) Diagnoses Renal calculi N20.0 Complex ovarian cyst N83.299 Liver lesion, right lobe K76.9
[2024-06-20 16:02] VITALS: BMI 20.2
== END 2024-06-20 16:21 | disposition home or self-care (01) ==
LOC: HO.HWS 16:00
PROVIDERS: PCP Internal Medicine; Visit Provider Obstetrics & Gynecology
DX: N20.0 Calculus of kidney (principal); N83.299 Other ovarian cyst, unspecified side; K76.9 Liver disease, unspecified
CPT/HCPCS: 99213

== ENCOUNTER 2024-06-24 09:52 | Outpatient (AMB) | payer BC, SELFPAY ==
--- NOTE | 2024-06-24 10:07 | A.OFFVIS_ITS ---
Intake Visit Reasons: cysto(Micro Hematuria) Intake Note: Patient is present for Cystoscopy(MICRO HEMATURIA) Urology Medication:NONE Antibiotic Allergy:AZITHROMYCIN Blood Thinner:NONE Lot:[id number] Exp:03/14/27 Relationship Associate Required: No Allergies sumatriptan [From IMITREX] Allergy (Intermediate, Verified 06/24/24 10:09) HIVES, SWELLING azithromycin Adverse Reaction (Intermediate, Verified 06/24/24 10:09) Weakness HPI Comments Details: Brandy is a pleasant female. She is a patient of Dr. Rolle. She is seen for the following urologic conditions - nephrolithiasis Underwent recent evaluation for microscopic hematuria Here today for plan cystoscopy CT scan showed distal right ureteric stone with proximal hydro uretero nephrosis Persistent blood Needs to be added on for cystoscopy, right retrograde, right ureteroscopy with laser lithotripsy Printed images from CT given to patient as part of discussion Nephrolithiasis Prior stones Imaging - There is a cluster of 7 x 8 mm calculi within the lumen of the proximal right ureter resulting in moderate to severe hydroureteronephrosis. Recommend intervention PFSH Medical History (Updated 06/20/24 @ 16:16 by Reji Moody MD) COVID-19 vaccine series completed Hypothyroidism Renal calculi Elevated cholesterol Migraine headache Vertigo Surgical History Hx of abdominal surgery History of tonsillectomy and adenoidectomy H/O colonoscopy Hx of section Family History (Updated 06/15/24 @ 09:35 by BRITTA Robert) Maternal Aunt Urinary bladder cancer Social History Are you a primary healthcare science specialist to a significant other at home: No Do you presently have visiting nurse or other home services: No Patient Tobacco Use Status: Never used Tobacco Review of Systems Const Denies chills and Denies fever(s) Card Reports no additional complaints and Denies syncope Resp Denies cough GI Denies abdominal pain and Denies heartburn Reports as per HPI and Denies change in libido Neuro Denies syncope Psych Denies change in libido Endo Denies change in libido Physical Exam Const General: cooperative, healthy appearing, comfortable and no acute distress Orientation/consciousness: patient oriented x3 HEENT Face and sinus: Yes normal facial exam Mouth: moist mucous membranes Neck Neck: Yes normal visual inspection, Yes full ROM and Yes trachea midline Chest Chest palpation & inspection: normal inspection of the chest Resp Effort & Inspection: normal respiratory effort, able to speak in complete sentences and no respiratory distress GI Inspection: Yes normal to inspection Back/Spine/Pelvis Cervical Spine: normal cervical lordosis Thoracic/Lumbar Spine: thoracic and lumbar spine normal to inspection Skin General skin exam: no rashes or lesions noted Neuro General: patient oriented x3, gait normal, tone normal and moves all extremities Extrem General: Yes normal to inspection and Yes capillary refill normal Office Procedures Cystoscopy Consent Discussed risk and benefit or proposed procedure with the patient. Information consent for procedure given to the patient. Discussed technical aspects, risks, benefits and alternatives in full. Addressed all of the patient's questions and concerns regarding the procedure. The patient demonstrated knowledge and understanding. They wish to proceed with this procedure. Preparation The patient was prepped in the usual manner. A cork floor installer was present and in the room. Genitalia was prepped with betadine solution in a sterile manner. Lidocaine Jelly 2% was placed into the urethra and 16Fr flexible Olympus cystoscope was inserted into the meatus after adequate lubrication. [id number] DISPOSABLE SCOPE URO-G FLEXIBLE SCOPE Procedure code (CPT) selection complete Office Meds lidocaine HCl 2 % mucosal jelly in applicator Performing Provider: Zenon Us MD [place] [facility] [place] [facility] Administered by: Tita Medrano RN on 06/24/24 10:51 Dose Route Admin Location Dispensed Lot Number Expiration Date NDC Patternmaker Pressure Cast 10 mL intra-urethral 10 mL nitrofurantoin monohydrate/macrocrystals 100 mg capsule Performing Provider: Zenon Us MD [place] [facility] [place] [facility] Administered by: Tita Medrano RN on 06/24/24 10:51 Dose Route Admin Location Dispensed Lot Number Expiration Date NDC Patternmaker Pressure Cast 100 mg PO 1 cap Results AMB Urinalysis, Automated UA Leukoctes 0 Shawna/uL Last Edit by KARMEN Davis on 06/24/24 10:49 UA Nitrite Negative Last Edit by KARMEN Davis on 06/24/24 10:49 UA Urobilinogen 0.2 mg/dL Last Edit by KARMEN Davis on 06/24/24 10:4 9 UA Protein 0 mg/dL Last Edit by Amrita Peterson [facility] on 06/24/24 10:49 UA pH 6.0 Last Edit by Amrita Peterson [facility] on 06/24/24 10:49 UA Blood 25 Red/uL Last Edit by Amrita Peterson [facility] on 06/24/24 10:49 UA Specific [place] 1.015 Last Edit by Amrita Peterson [facility] on 06/24/24 10: 49 UA Ketone Negative Last Edit by Amrita Peterson [facility] on 06/24/24 10:49 UA Bilirubin 0 mg/dL Last Edit by Amrita Peterson [facility] on 06/24/24 10:49 UA Glucose 0 mg/dL Last Edit by Amrita Peterson [facility] on 06/24/24 10:49 Results Reviewed Results Reviewed: Laboratory Last Values Urine pH (Auto) 6.0 06/24/24 10:47 Specific [place] (Auto) 1.015 06/24/24 10:47 Urine Protein (Auto) 0 mg/dL 06/24/24 10:47 Glucose (UA)(Auto) 0 mg/dL 06/24/24 10:47 Urine Ketones (Auto) Negative 06/24/24 10:47 Urine Blood (Auto) 25 Red/uL 06/24/24 10:47 Urine Nitrite (Auto) Negative 06/24/24 10:47 Urine Bilirubin (Auto) 0 mg/dL 06/24/24 10:47 Urine Urobilinogen (Auto) 0.2 mg/dL 06/24/24 10:47 Leukocyte Esterase (Auto) 0 Shawna/uL 06/24/24 10:47 Assessment & Plan Assessment & Plan (1) Renal calculi: Comment: With moderate to severe hydro ureteronephrosis Code(s): N20.0 - Calculus of kidney Category: Medical Plan Ureteroscopy We discussed the nature of the decision and reasonable alternatives for performing ureteroscopy. Options such as medical therapy were discussed. Interventions include chemical dissolution, ESWL, ureteroscopy with laser lithotripsy and stent placement, PCNL. The relative uncertainties and benefits related to each alternate procedure were adequately discussed. General surgical risks including, but not limited to - pain, bleeding, infection, myocardial infarction, pulmonary embolus, deep vein thrombosis and cerebrovascular accident which may result in further hospitalization were discussed. Full disclosure of the procedure as well as all major risks, benefits and complications were discussed including but not limited to damage to the urethra, bladder and kidney infection, damage to the ureter, stent migration or malposition, scarring to the renal pelvis, remnant stone fragments, subsequent stone passage with need for secondary procedures. The overall secondary procedure rate is approximately 10-15%. The overall clearance rate is approximately 90-95%. Success of the procedure in the short-term does not necessarily guarantee that long-term success will be maintained. Suitable follow up will need to be maintained. The patient showed understanding of discussion and wishes to proceed with - cystoscopy, retrograde, ureteroscopy, possible lithotripsy/stone basketing and stent on the right side Orders: Orders AMB Cystoscopy Today R31.29 - Other microscopic hematuria AMB Urinalysis Automated Today Z13.9 - Encounter for screening, unspecified Patient Instructions: This note is constructed using voice recognition software. While every effort has been made to ensure accuracy wrapper dipper errors may have been included. Imaging studies, laboratory and physical exam results were discussed and revie wed in detail. No major barriers to patient understanding were identified. An opportunity to ask questions regarding the treatment plan was provided. All questions were answered. The patient expressed understanding and agreement with the above treatment plan. The patient is aware they should contact our office by phone for worsening of their current condition or the appearance of new urologic symptoms. Compliance is encouraged with any medications and followup testing that is ordered. It is a privilege to participate in the urologic care of your patient. If you have any questions or concerns regarding treatment for the above conditions, or other urologic issues, please do not hesitate to contact me. The office telephone contact is [phone]. Sincerely, Dr Zenon Us MD, [facility] - Urology Compassionate Specialist Care for the Genitourinary System Coding Level of Care Code Est Pt Level 4 (21381) Diagnoses Renal calculi N20.0 CPT Codes Cystoscopy - CPT: 01367-[id number] ([id number])
--- OUTSIDE RECORDS SUMMARY | 2024-06-24 10:24 | XMS_ITS | Patient Health Record ---
Author Organization [facility] Address [address] [place] [address] Care Team Providers Care Mechanical Door Repairer Name Role Phone Abilio Rolle MD Primary Care Provider Jayme Gandhi Unavailable [phone] ALLERGIES Allergen (clinical drug ingredient) Drug/Non Drug [...] malignant neoplasm of colon (Z12.11) Active confirmed [id number] Problem Pre-procedural examination (Z01.818) Active confirmed [id number] Problem Diverticulosis of colon (K57.30) Active confirmed Diverticulosi s of colon (021630231) PLAN OF TREATMENT Future Test Test Name Order Date COLONOSCOPY 08/21/2021 Insurance Providers Payer Name Payer Address Payer Phone Subscriber Number Group Number Insured Name Patient Relationship to Insured Coverage Start Date Coverage End Date [facility] [address] [place], [place] [id number] HERMILO NELSON Self - patient is the insured MEDICAL (GENERAL) HISTORY Medical History History ICD Code Negative colonoscopy at age [address] Villegas Denies [place],DM,CVA,Lung disease,renal dise ase Vertigo-intermittent Surgical History Surgery Date(Month/Year) 2 C-sections Tonsils and adenoids
== END 2024-06-24 11:20 | disposition home or self-care (01) ==
PROVIDERS: PCP Internal Medicine; Visit Provider Urology
DX: R31.29 Other microscopic hematuria (principal); N20.0 Calculus of kidney; Z13.9 Encounter for screening, unspecified
CPT/HCPCS: 52000; 99214

== ENCOUNTER → 2024-06-24 09:52 | Outpatient (BNVA) | payer BC, SELFPAY | PROVIDERS: PCP Internal Medicine; Visit Provider Urology | DX: R31.29 Other microscopic hematuria (principal); N13.2 Hydronephrosis with renal and ureteral calculous obstruction | CPT/HCPCS: 52000; 81003 ==

== ENCOUNTER 2024-06-30 14:24 | Day surgery (SDC) | payer BC, SELFPAY ==
--- NOTE | ~2024-06-30 | FL_ITS ---
EXAMINATION: XR FLUOROSCOPY WITH IMAGES CLINICAL INFORMATION: Retrograde cystoscopy with right ureteral stent placement. COMPARISON: CT abdomen and pelvis 06/17/2024. TECHNIQUE: Fluoroscopy provided to: Dr. Us Fluoroscopy time: 23.1 seconds DAP: 1.0756 Gycm2 Images: 2 FINDINGS: 2 fluoroscopic images obtained during retrograde cystoscopy and placement of right ureteral stent. Please refer to full operative report for details. FL/FL guidance in OR IMPRESSION: Fluoroscopic guidance. Electronically signed by: Vinicio Bosch MD 07/01/2024 10:13 AM LUISA
--- OUTSIDE RECORDS SUMMARY | 2024-06-30 08:38 | XMS_ITS | Patient Health Record ---
Author Organization [facility] Address [address] [place] [address] Care Team Providers Care Venetian Blind Assembler Name Role Phone Abilio Rolle MD Primary Care Provider Jayme Gandhi Unavailable [phone] ALLERGIES Allergen (clinical drug ingredient) Drug/Non Drug [...] malignant neoplasm of colon (Z12.11) Active confirmed 021936714 Problem Pre-procedural examination (Z01.818) Active confirmed [id number] Problem Diverticulosis of colon (K57.30) Active confirmed Diverticulosi s of colon (000619684) PLAN OF TREATMENT Future Test Test Name Order Date COLONOSCOPY 08/21/2021 Insurance Providers Payer Name Payer Address Payer Phone Subscriber Number Group Number Insured Name Patient Relationship to Insured Coverage Start Date Coverage End Date [facility] [address] [place], [place] [id number] HERMILO NELSON Self - patient is the insured MEDICAL (GENERAL) HISTORY Medical History History ICD Code Negative colonoscopy at age [address] Villegas Denies [place],DM,CVA,Lung disease,renal dise ase Vertigo-intermittent Surgical History Surgery Date(Month/Year) 2 C-sections Tonsils and adenoids
[2024-06-30 14:35] VITALS: BMI 19.6
--- NOTE | 2024-06-30 16:23 | MHC.SHP ---
Pre-Procedural Eval Section A - 24 Hr Update-Section A only Date of Service: 06/30/24 The patient is an INPATIENT: No Changes since office visit: No Cold of Flu in the past 2 weeks, No New Medical Problems, No Changes in Medication and No Patient answered all questions The patient has been examined within 24 hours of the surgical procedure. The History & Physical has been completed within 30 days and I have reviewed it.: Yes Section B - Complete if H&P > 30 days Chief Complaint: Hydronephrosis with renal and ureteral calculous Details of Present Illness: right retrograde - ureteroscopy laser basket and stent placement Allergies: Allergies Allergy/AdvReac Type Severity Reaction Status Date / Time sumatriptan [From IMITREX] Allergy Intermediate HIVES, Verified 06/30/24 14:34 SWELLING azithromycin AdvReac Intermediate Weakness Verified 06/30/24 14:34 Plan I have reviewed the history and physical and performed a pertinent physical examination on my patient. No changes have occurred unless specified. Time Spent With Patient Time: Total time managing care of this patient today ____ minutes.
--- NOTE | 2024-06-30 16:26 | HO.ANESPROP2 ---
HPI - Anesthesia Eval Consult details Narrative: cysto, right laser litho PMFSH Active Problems Active Problems: All Active Problems Liver lesion, right lobe (Acute) Complex ovarian cyst (Acute) Renal calculi (Acute) Microscopic hematuria (Acute) Urinary frequency (Acute) Well woman exam (Acute) Past Medical History Medical History (Updated 06/20/24 @ 16:16 by Reji Moody MD) COVID-19 vaccine series completed Hypothyroidism Renal calculi Elevated cholesterol Migraine headache Vertigo Family History Family History (Updated 06/15/24 @ 09:35 by BRITTA Robert) Maternal Aunt Urinary bladder cancer Family history of problems with anesthesia: No Surgical History Surgical History Hx of abdominal surgery History of tonsillectomy and adenoidectomy H/O colonoscopy Hx of section History of Problems with Anesthesia: No Social History Social History Are you a primary life care planner to a significant other at home: No Do you presently have visiting nurse or other home services: No Patient Tobacco Use Status: Never used Tobacco Use of substances other than those prescribed or required for medical reasons: No Are you DNR?: No Advance Directives: No Advance Directives Information Provided: Yes Meds Allergies Allergy/AdvReac Type Severity Reaction Status Date / Time sumatriptan [From IMITREX] Allergy Intermediate HIVES, Verified 06/30/24 14:34 SWELLING azithromycin AdvReac Intermediate Weakness Verified 06/30/24 14:34 Active Medications: Current Medications Acetaminophen (Ofirmev) 1,000 mg in 100 mls @ 400 mls/hr IV PREOP ONE Stop: 06/30/24 16:31 Cefazolin Sodium/Dextrose (Ancef) 2 gm in 50 mls @ 100 mls/hr IV PREOP ONE Stop: 06/30/24 16:46 Home Medications ?Medication ?Instructions ?Recorded ?Confirmed ?Last Taken ?Type cholecalciferol (vitamin D3) 10 10 mcg PO DAILY 10/14/21 06/30/24 Unknown History mcg (400 unit) capsule (Vitamin D3) Exam Height,Weight and Vital Signs: Height 5 ft 2.5 in Weight 49.442 kg Airway Mallampati Class: II TM Dist: <=3cm Neck ROM: Full Loose/Missing/Broken Teeth: No Heart: ok Lungs: ok Assessment and Plan Assessment Anesthesia Assessment: Anesthesia Plan Discussed and Chart Reviewed Final Anesthetic Review Family History of Problems with Anesthesia: No History of Problems with Anesthesia: No NPO: Yes ASA Class: II Final Preanesthetic Review: No Changes in Pt Med Stat, Meds/Allgs Chart Reviewed, Consent Obtained/Reviewed and Anes Risks/Benef Reviewed Patient Risk: Low Procedure Risk: Low Anesthetic Plan Anesthetic Plan: GA and Agree w/ Assess. and Plan Disposition: Standard PACU
[2024-06-30 17:10] VITALS: BP 111/73; PULSE 66; RESP 14; TEMP 36.7; O2SAT 96
[2024-06-30 17:15] VITALS: BP 105/73; PULSE 76; RESP 16; O2SAT 95
[2024-06-30] MEDS: Acetaminophen 325 MG TABLET 975 MG PO (17:17)
--- NOTE | 2024-06-30 17:18 | P.OP_ITS ---
Operative Note Operative Note Date of Service: 06/30/24 Narrative: PreOperative Diagnosis: Right proximal ureteric stones with hydro uretero nephrosis Post Operative Diagnosis: About Procedure: - cystoscopy, right retrograde - right dilatation of ureteric orifice under fluoroscopy - right ureteroscopy, laser lithotripsy, stone basketing - right stent placement Surgeon: Dr Zenon Us Anesthesia: General Indications for procedure: During evaluation for microscopic hematuria found to have collection of 3x5 mm stones in the proximal ureter and proximal hydro uretero nephrosis and effacement within the kidney. Procedure: After informed consent was verified the patient was brought to the operating room and placed in a supine position. Anesthesia was administered per protocol. The patient was placed in a modified dorsal lithotomy position and prepped and draped in a sterile fashion. Safety pause time-out and side of surgery were confirmed. Images were available for review. Antibiotic administration confirmed. A 22 [place] cystoscope was inserted per urethra. The urethra was without abnormality. The bladder was normal in its entirety. Both ureteric orifices were seen in normal position. The right ureteric orifice was cannulated and a retrograde examination was performed. Filling defects seen in the proximal ureter with hydro uretero nephrosis . A Sensor guidewire was placed up to the level of the renal pelvis under fluoroscopy. The rigid cystoscope was removed. A [place] dilator was placed over the Sensor guidewire and used to dilate the ureteric orifice under fluoroscopy. The dilator was removed. The semi rigid ureteral scope was placed alongside the Sensor guidewire. Stones were encountered. Using a 365 micro holmium laser fiber the stone was broken into small pieces using a combination of hammer and dusting techiques. Stone fragments were removed from the ureter using a short catch basket basket. Once the fragments were removed a decision was made to place a ureteric stent. Based on the height of the patient a 6 Fr x 22 cm stent was used. The string was removed from the stent prior to placement. A 6 Indonesian by 22 cm double-J stent was placed into the renal pelvis and bladder under a combination of fluoroscopy and direct visualization. The symphisis pubis was used as a radiographic marker to release the stent and good coil was seen within the bladder confirming position Proximal positioning of the stent was confirmed using fluoroscopy. The bladder was emptied. The patient tolerated the procedure well and was extubated in the operating room. They were transferred in stable condition to the recovery area. Pathology: stones Drains: Double J stent as described above
[2024-06-30 17:20] VITALS: BP 105/64; PULSE 75; RESP 16; O2SAT 98
[2024-06-30] MEDS: Phenazopyridine HCL 100 MG TABLET PO (17:21)
[2024-06-30 17:25] VITALS: BP 115/73; PULSE 70; RESP 16; O2SAT 98
[2024-06-30 17:40] VITALS: BP 116/70; PULSE 69; RESP 16; TEMP 36.6; O2SAT 100
== END 2024-06-30 17:44 | disposition home or self-care (01) ==
PROVIDERS: PCP Internal Medicine; Visit Provider Urology
PROC: (CPT 52356; principal; 2024-06-30 16:30)
DX: N13.2 Hydronephrosis with renal and ureteral calculous obstruction (principal); R31.29 Other microscopic hematuria; Z87.442 Personal history of urinary calculi; E78.00 Pure hypercholesterolemia, unspecified; E03.9 Hypothyroidism, unspecified; G43.909 Migraine, unspecified, not intractable, without status migrainosus; R42 Dizziness and giddiness; Z79.899 Other long term (current) drug therapy; Z88.1 Allergy status to other antibiotic agents; Z88.8 Allergy status to other drugs, medicaments and biological substances; Z98.890 Other specified postprocedural states
CPT/HCPCS: 52356; C1758; C1769; C2617; J0690; J1885; J2003; J2405; J2704; J3010; Q9967

== ENCOUNTER → 2024-06-30 14:24 | Outpatient (BNV) | payer BC, SELFPAY | PROVIDERS: PCP Internal Medicine; Visit Provider Urology | DX: N13.2 Hydronephrosis with renal and ureteral calculous obstruction (principal) | CPT/HCPCS: 52356; 74420 ==

== ENCOUNTER → 2024-07-01 09:09 | Outpatient (BNVA) | payer BC, SELFPAY | PROVIDERS: PCP Internal Medicine; Visit Provider Urology | DX: R39.198 Other difficulties with micturition (principal) | CPT/HCPCS: 51702; 51798 ==

== ENCOUNTER 2024-07-02 05:50 | Emergency (ER) | payer BC, SELFPAY ==
[2024-07-02 05:54] VITALS: BP 138/78; PULSE 88; RESP 17; TEMP 36.6; O2SAT 98; BMI 19.6
[2024-07-02 06:15] VITALS: BP 130/75; PULSE 91; RESP 16; TEMP 36.3; O2SAT 96
[2024-07-02 06:36] LABS: Appearance Urine Cloudy; Color Urine BROWN; Leukocyte Esterase Urine Small (1+) (Negative); PH 6.5 (5.0-9.0); Specific Gravity - Urine >= 1.030 (1.005-1.025); UMIC TRIGGER UACC YES; Urine Blood Large (3+) (Negative); Urine Protein 300 (3+) mg/dL (Neg-Trace)
[2024-07-02 07:02] LABS: Bacteria Urine None Seen (None Seen); Hyaline Casts Urine 0-2 /LPF (0-2); RBC Urine >20 /HPF (0-2); UACC Culture Trigger YES; WBC Urine >50 /HPF (0-5)
--- NOTE | 2024-07-02 07:23 | ED.FEMALEGU ---
HPI - Female Genitourinary General Chief complaint: Urogenital-Female Stated complaint: unable to urinate Time Seen by Provider: 07/02/24 06:42 Source: patient Limitations: no limitations History of Present Illness HPI Narrative: This is 63 years old the patient presented to the emergency department with a chief complaint of folic acid unknown draining well. Gutierrez catheter was placed yesterday by the Urology patient status post kidney stone removal. She denies any fever chills vomiting denies any other medical problems Onset (ago): hour(s) (3) Severity: mild Female Urogenital Radiation: Non-Radiating Associated symptoms: denies other symptoms Related Data Home Medications ?Medication ?Instructions ?Recorded ?Confirmed cholecalciferol (vitamin D3) 10 10 mcg PO DAILY 10/14/21 06/30/24 mcg (400 unit) capsule (Vitamin D3) Previous Rx's ?Medication ?Instructions ?Recorded meclizine 25 mg tablet 25 mg PO TID PRN dizziness #20 tabs 02/16/20 naproxen 500 mg tablet 500 mg PO BID PRN pain 7 days #14 06/30/24 tabs oxycodone 5 mg tablet 5 mg PO Q8H PRN pain 3 days #8 tabs 06/30/24 phenazopyridine 100 mg tablet 100 mg PO TID PRN Spasm 4 days #12 06/30/24 (Pyridium) tabs tamsulosin 0.4 mg capsule 0.4 mg PO BEDTIME 14 days #14 caps 06/30/24 levofloxacin 500 mg tablet 500 mg PO DAILY 5 days #5 tabs 07/02/24 Allergies Allergy/AdvReac Type Severity Reaction Status Date / Time sumatriptan [From IMITREX] Allergy Intermediate HIVES, Verified 07/02/24 05:57 SWELLING azithromycin AdvReac Intermediate Weakness Verified 07/02/24 05:57 Review of Systems Constitutional: Constitutional: Reports no additional constitutional complaints Cardiovascular: Cardiovascular: Reports no additional cardiovascular complaints [facility] Past Medical History [facility] Narrative: History of kidney stone Medical History COVID-19 vaccine series completed Hypothyroidism Renal calculi Elevated cholesterol Migraine headache Vertigo Surgical History Hx of abdominal surgery History of tonsillectomy and adenoidectomy H/O colonoscopy Hx of section Family History Family History (Updated 06/15/24 @ 09:35 by BRITAT Robert) Maternal Aunt Urinary bladder cancer Social History Social History Are you a primary care navigator to a significant other at home: No Do you presently have visiting nurse or other home services: No Patient Tobacco Use Status: Never used Tobacco Smoked in Last 30 Days: No Use of substances other than those prescribed or required for medical reasons: No Advance Directives: Yes Advance Directives on File: No Do you have a plan to hurt others: No Plan Physical Exam Vital Signs: Vital Signs: Last Vital Signs Temp 97.4 F 07/02/24 06:15 Pulse 91 07/02/24 06:15 Resp 16 07/02/24 06:15 BP 130/75 07/02/24 06:15 Pulse Ox 96 07/02/24 06:15 O2 Del Method Room Air 07/02/24 06:15 BMI result Body Mass Index 19.6 No acute distress Const: General: cooperative Orientation/consciousness: patient oriented x3 Limitations: no limitations HEENT: Head: Yes normal to inspection General nose exam: Normal external nose present Mouth: Normal oral and palatal mucosa present Throat: Yes posterior oropharynx normal Neck: Neck: Yes normal visual inspection Chest: Chest palpation & inspection: normal inspection of the chest Resp: Effort & Inspection: normal respiratory effort Auscultation: clear to auscultation bilaterally Cardio: Jugular venous distension: no JVD Rate: regular rate Rhythm: regular rhythm GI: Other: Abdomen is soft no tendon Skin: General skin exam: no rashes or lesions noted and elasticity normal Lesions: no lesions Rashes: no rashes Neuro: General: patient oriented x3 Course Reevaluation(s) Reevaluation #1: Catheter was flushed by the nurse working good,UA showed more than 50 WBC, we will discharged home on p.o. antibiotic. Patient and family comfortable with the plan of care Time: 08:10 Medical Decision Making Medical Decision Making MDM Narrative: Patient presented to the emergency room with a chief complaint of possible block catheter, we will go ahead and flush caheter Differential Diagnosis Differential Diagnoses: The differential diagnosis associated with the presentation includes Blood catheter/UTI Admission/Observation Consideration of admission/observation: Escalation of care including admission/observation considered Lab Data Labs: Lab Results 07/02/24 Range/Units 06:30 Urine Color BROWN Urine Appearance Cloudy Urine pH 6.5 (5.0-9.0) Ur Specific [place] >= 1.030 H (1.005-1.025) Urine Protein 300 (3+) H (Neg-Trace) mg/dL Urine Glucose (UA) See Note (Negative) mg/dL Urine Ketones See Note (Negative) mg/dL Urine Blood Large (3+) H (Negative) Urine Nitrite See Note (Negative) Ur Leukocyte Esterase Small (1+) H (Negative) Urine RBC >20 H (0-2) /HPF Urine WBC >50 H (0-5) /HPF Ur Squamous Epith Cells 11-20 (0-2) /HPF Urine Bacteria None Seen (None Seen) Hyaline Casts 0-2 (0-2) /LPF Discharge Plan Discharge Clinical Impression: UTI (urinary tract infection) Qualifiers: Urinary tract infection type: site unspecified Hematuria presence: without hematuria Qualified Code(s): N39.0 - Urinary tract infection, site not specified Complication of Gutierrez catheter Qualifiers: Encounter type: initial encounter Qualified Code(s): T83.9XXA - Unspecified complication of genitourinary prosthetic device, implant and graft, initial encounter Patient Disposition: Home, Self-Care Instructions: Catheter-associated Urinary Tract Infection (ED) Additional Instructions: Follow-up with the Urology as scheduled, we gave you a prescription for an antibiotic as well, return to the emergency room if you worse if you have a fever any concern Prescriptions: New levofloxacin 500 mg tablet 500 mg PO DAILY 5 Days Qty: 5 0RF No Action meclizine 25 mg tablet 25 mg PO TID PRN (Reason: dizziness) Qty: 20 0RF Patient Comments: Takes as needed once a year when she gets a flare up of dizzines cholecalciferol (vitamin D3) [Vitamin D3] 10 mcg (400 unit) Capsule 10 mcg PO DAILY tamsulosin 0.4 mg capsule 0.4 mg PO BEDTIME 14 Days Qty: 14 0RF phenazopyridine [Pyridium] 100 mg tablet 100 mg PO TID PRN (Reason: Spasm) 4 Days Qty: 12 0RF naproxen 500 mg tablet 500 mg PO BID PRN (Reason: pain) 7 Days Qty: 14 0RF oxycodone 5 mg tablet 5 mg PO Q8H PRN (Reason: pain) 3 Days Qty: 8 0RF Rx Instructions: Partial Fill upon patient request. Print Language: [place]
[2024-07-02 08:17] VITALS: BP 113/71; PULSE 74; RESP 16; TEMP 36.7; O2SAT 96
[2024-07-02 08:20] VITALS: BP 113/71; PULSE 74; RESP 16; TEMP 36.7; O2SAT 96
== END 2024-07-02 08:24 | disposition home or self-care (01) ==
PROVIDERS: Emergency Provider Emergency Medicine; PCP Internal Medicine
DX: N39.0 Urinary tract infection, site not specified (principal); T83.098A Other mechanical complication of other urinary catheter, initial encounter; Y73.8 Miscellaneous gastroenterology and urology devices associated with adverse incidents, not elsewhere classified; Y92.9 Unspecified place or not applicable
CPT/HCPCS: 81001; 87086; 99283; 99284

== ENCOUNTER 2024-07-08 08:42 | Outpatient (AMB) | payer BC, SELFPAY ==
--- NOTE | 2024-07-08 08:49 | MHC.OFFVIS ---
Intake Visit Reasons: Stent removal/VT Intake Note: Pt presents to the office today for a stent removal and voiding trial. PVR:0mL Cystoscope: Lot:[id number] Exp:09/16/26 Allergies sumatriptan [From IMITREX] Allergy (Intermediate, Verified 07/08/24 08:49) HIVES, SWELLING azithromycin Adverse Reaction (Intermediate, Verified 07/08/24 08:49) Weakness HPI Comments Details: Brandy is a pleasant female. She is a patient of Dr. Rolle. She is seen for the following urologic conditions - nephrolithiasis Here for cystoscopy and stent removal Had cluster of calculi in ureter Consistent with calcium oxalate stones Three-month follow-up renal ultrasound One month tamsulosin since had retention following procedure and needed catheter Uro risk Nephrolithiasis Prior stones Imaging - There is a cluster of 7 x 8 mm calculi within the lumen of the proximal right ureter resulting in moderate to severe hydroureteronephrosis. Intervention - 07/05 right ureteroscopy associated with urinary retention PFSH Medical History COVID-19 vaccine series completed Hypothyroidism Renal calculi Elevated cholesterol Migraine headache Vertigo Surgical History Hx of abdominal surgery History of tonsillectomy and adenoidectomy H/O colonoscopy Hx of section Family History Maternal Aunt Urinary bladder cancer Social History Are you a primary patient care provider to a significant other at home: No Do you presently have visiting nurse or other home services: No Patient Tobacco Use Status: Never used Tobacco Review of Systems Const Denies chills and Denies fever(s) Card Reports no additional complaints and Denies syncope Resp Denies cough GI Denies abdominal pain and Denies heartburn Reports as per HPI and Denies change in libido Neuro Denies syncope Psych Denies change in libido Endo Denies change in libido Physical Exam Const General: cooperative, healthy appearing, comfortable and no acute distress Orientation/consciousness: patient oriented x3 HEENT Face and sinus: Yes normal facial exam Mouth: moist mucous membranes Neck Neck: Yes normal visual inspection, Yes full ROM and Yes trachea midline Chest Chest palpation & inspection: normal inspection of the chest Resp Effort & Inspection: normal respiratory effort, able to speak in complete sentences and no respiratory distress GI Inspection: Yes normal to inspection Back/Spine/Pelvis Cervical Spine: normal cervical lordosis Thoracic/Lumbar Spine: thoracic and lumbar spine normal to inspection Skin General skin exam: no rashes or lesions noted Neuro General: patient oriented x3, gait normal, tone normal and moves all extremities Extrem General: Yes normal to inspection and Yes capillary refill normal Office Procedures Cystoscopy Consent Discussed risk and benefit or proposed procedure with the patient. Information consent for procedure given to the patient. Discussed technical aspects, risks, benefits and alternatives in full. Addressed all of the patient's questions and concerns regarding the procedure. The patient demonstrated knowledge and understanding. They wish to proceed with this procedure. Preparation The patient was prepped in the usual manner. A medical device sales representative was present and in the room. Genitalia was prepped with betadine solution in a sterile manner. Lidocaine Jelly 2% was placed into the urethra and 16Fr flexible Olympus cystoscope was inserted into the meatus after adequate lubrication. 50770-[id number] with stent removal DISPOSABLE SCOPE URO-G FLEXIBLE SCOPE Procedure code (CPT) selection complete Post Void Residual Post Residual Void Post Void Residual (PVR): 0 19415-Zssj Void Residual by ultrasound Office Meds lidocaine HCl 2 % mucosal jelly in applicator Performing Provider: Zenon Us MD Performing Location: [facility] Administered by: Tita Medrano RN on 07/08/24 09:08 Dose Route Admin Location Dispensed Lot Number Expiration Date NDC Drywall Hanger 10 mL intra-urethral 10 mL nitrofurantoin monohydrate/macrocrystals 100 mg capsule Performing Provider: Zenon Us MD Performing Location: [facility] Administered by: Tita Medrano RN on 07/08/24 09:08 Dose Route Admin Location Dispensed Lot Number Expiration Date NDC Drywall Hanger 100 mg PO 1 cap naproxen 500 mg tablet Performing Provider: Zenon Us MD Performing Location: [facility] Administered by: Tita Medrano RN on 07/08/24 09:08 Dose Route Admin Location Dispensed Lot Number Expiration Date NDC [employer]wall [employer]anger 500 mg PO 1 tab Assessment & Plan Assessment & Plan (1) Urinary retention: Code(s): R33.9 - Retention of urine, unspecified Category: Medical (2) Renal calculi: Comment: With moderate to severe hydro ureteronephrosis Code(s): N20.0 - Calculus of kidney Category: Medical Plan Three-month follow-up renal ultrasound Orders: Orders AMB Post Void Residual by ultrasound Today R35.0 - Frequency of micturition AMB Cystoscopy Today N20.0 - Calculus of kidney, R31.29 - Other microscopic hematuria US renal BI 3 Months N20.0 - Calculus of kidney URORISK Today N20.0 - Calculus of kidney Medications: Changed From tamsulosin 0.4 mg PO BEDTIME 14 days 14 caps 0RF N20.0 - Calculus of kidney To tamsulosin 0.4 mg PO BEDTIME 28 caps 0RF 28 days N20.0 - Calculus of kidney Patient Instructions: This note is constructed using voice recognition software. While every effort has been made to ensure accuracy parking garage manager errors may have been included. Imaging studies, laboratory and physical exam results were discussed and reviewed in detail. No major barriers to patient understanding were identified. An opportunity to ask questions regarding the treatment plan was provided. All questions were answered. The patient expressed understanding and agreement with the above treatment plan. The patient is aware they should contact our office by phone for worsening of their current condition or the appearance of new urologic symptoms. Compliance is encouraged with any medications and followup testing that is ordered. It is a privilege to participate in the urologic care of your patient. If you have any questions or concerns regarding treatment for the above conditions, or other urologic issues, please do not hesitate to contact me. The office telephone contact is [phone]. Sincerely, Dr Zenon Us MD, JUN[facility] - Urology Compassionate Specialist Care for the Genitourinary System Coding Level of Care Code Est Pt Level 3 (43215) Diagnoses Urinary retention R33.9 Renal calculi N20.0 CPT Codes Cystoscopy - CPT: 51292-Isydfcbyyr with stent removal ([id number]) Post Residual Void - PVR CPT Code: 97567-Fspo Void Residual by ultrasound ([id number])
--- OUTSIDE RECORDS SUMMARY | 2024-07-08 08:58 | XMS_ITS | Patient Health Record ---
Author Organization [facility] Address [address] [place] [address] Care Team Providers Care Truss Driver Helper Name Role Phone Abilio Rolle MD Primary Care Provider Jayme Gandhi Unavailable [phone] ALLERGIES Allergen (clinical drug ingredient) Drug/Non Drug [...] malignant neoplasm of colon (Z12.11) Active confirmed [id number] Problem Pre-procedural examination (Z01.818) Active confirmed [id number] Problem Diverticulosis of colon (K57.30) Active confirmed Diverticulosi s of colon (910561475) PLAN OF TREATMENT Future Test Test Name Order Date COLONOSCOPY 08/21/2021 Insurance Providers Payer Name Payer Address Payer Phone Subscriber Number Group Number Insured Name Patient Relationship to Insured Coverage Start Date Coverage End Date [facility] [address] [place], [place] [id number] [phone] [id number] HERMILO NELSON Self - patient is the insured MEDICAL (GENERAL) HISTORY Medical History History ICD Code Negative colonoscopy at age 51 [address] Villegas Denies SC,DM,CVA,Lung disease,renal dise ase Vertigo-intermittent Surgical History Surgery Date(Month/Year) 2 C-sections Tonsils and adenoids
== END 2024-07-08 09:34 | disposition home or self-care (01) ==
PROVIDERS: PCP Internal Medicine; Visit Provider Urology
DX: N20.0 Calculus of kidney (principal); R31.29 Other microscopic hematuria; R33.9 Retention of urine, unspecified
CPT/HCPCS: 52310

== ENCOUNTER → 2024-07-08 08:42 | Outpatient (BNVA) | payer BC, SELFPAY | PROVIDERS: PCP Internal Medicine; Visit Provider Urology | DX: Z48.816 Encounter for surgical aftercare following surgery on the genitourinary system (principal); R33.9 Retention of urine, unspecified; R35.0 Frequency of micturition | CPT/HCPCS: 51798; 52310 ==

== ENCOUNTER 2024-07-27 10:52 | Outpatient (REF) | payer BC, SELFPAY ==
--- NOTE | ~2024-07-27 | US_ITS ---
CLINICAL HISTORY: N83.299 - Other ovarian cyst, unspecified side US pelvis transabdominal Comparison: US - PELVIS ULTRASOUND [id number] - 12/12/14 15:06 EDT Findings: Transabdominal scanning performed. The patient was unable to tolerate transvaginal imaging. Anteverted uterus is 10.4 cm length. Heterogeneous myometrium containing foci of calcification compatible with fibroid. Very limited evaluation with poor delineation of myometrial parenchyma. Endometrium not visualized. Probable visualization of the right ovary with an estimated size of 2.9 x 2.0 x 2.2 cm. This is associated with a 2.2 x 1.4 x 1.5 cm cyst. The left ovary measures 2.3 x 1.6 x 1.7 cm. There is no left adnexal cyst. No free fluid. IMPRESSION: 1. Limited evaluation as described. 2. Possible 2.2 cm right ovarian cyst. Recommend follow-up. This document has been electronically signed by: Elena Brock MD on 07/28/2024 16:08:36
--- OUTSIDE RECORDS SUMMARY | 2024-07-27 13:02 | XMS_ITS | Patient Health Record ---
Author Organization [facility] Address [address] [place] [address] Care Team Providers Care Talent Director Name Role Phone Abilio Rolle MD Primary Care Provider Jayme Gandhi Unavailable [phone] Allergies Allergen (clinical drug ingredient) Drug/Non Drug Allergy documented on EMR Reaction Allergy Type Onset Date Status sumatriptan Imitrex Unknown Drug Allergy Activ e Reason For Referral No Information Medications Medication SIG (Take, Route, Fr equency, Duration) Notes Start Date End Date Status Vitamin D 400 UNIT 1 capsule Orally Onc e a day for 30 day(s) Active Immunizations Vaccine Route Administration Date Status Comme nts Influenza Unknown 08/21/2021 Refused Social History Tobacco Use: Social History Observation Description Date Details (start date - stop date) Never Smoker NA - NA Tobacco Use/Smoking Question Answer Notes Patient is a nonsmoker Alcohol Screen Question Answer Notes Did you have a drink containing alcohol in the p ast year? No Points 0 Interpretation Negative Section Notes: Nonsmoker; no sig alcohol Problems Problem Type SNOMED Code ICD Code Onset Dates Problem Status W/U Status Risk Notes Problem [id number] Encounter for screening for malignant neoplasm of colon (Z12.11) Active confirmed Problem 041550249187546 Pre-procedural examination (Z01.818) Active confirmed Problem Diverticulosis of colon (704945615) Diverticulosis of colon (K57.30) Active confirmed Plan Of Treatment Future Test Test Name Order Date COLONOSCOPY 08/21/2021 Insurance Providers Payer Name Payer Address Payer Phone Subscriber Number Group Number Insured Name Patient Relationship to Insured Coverage Start Date Coverage End Date [facility] [address] [place], [place] [phone] [id number] HERMILO NELSON Self - patient is the insured Medical (General) History Medical History History ICD Code Negative colonoscopy at age [address] Villegas Denies AR,DM,CVA,Lung disease,renal dise ase Vertigo-intermittent Surgical History Surgery Date(Month/Year) 2 C-sections Tonsils and adenoids
== END 2024-07-27 10:53 | disposition home or self-care (01) ==
LOC: HO.US 10:52
PROVIDERS: PCP Internal Medicine; Visit Provider Obstetrics & Gynecology
DX: N83.299 Other ovarian cyst, unspecified side (principal)
CPT/HCPCS: 76830; 76856

== ENCOUNTER → 2024-07-27 10:53 | Outpatient (BNV) | payer BC, SELFPAY | PROVIDERS: PCP Internal Medicine; Visit Provider Radiology Diagnostic Radiology | DX: N83.291 Other ovarian cyst, right side (principal); D25.9 Leiomyoma of uterus, unspecified | CPT/HCPCS: 76830; 76856 ==

== ENCOUNTER 2024-08-02 14:57 | Outpatient (REF) | payer BC, SELFPAY ==
[2024-08-02 17:56] LABS: Carcinoembryonic Antigen < 1.73 ng/mL
[2024-08-03 12:29] LABS: CA-125 15 U/mL (<35)
[2024-08-05 13:38] LABS: Carbohydrate Antigen 19-9 8 U/mL (<34)
== END 2024-08-02 14:58 | disposition home or self-care (01) ==
LOC: HO.LAB 14:57
PROVIDERS: PCP Internal Medicine; Visit Provider Obstetrics & Gynecology
DX: N83.201 Unspecified ovarian cyst, right side (principal)
CPT/HCPCS: 36415; 82378; 86301; 86304

== ENCOUNTER 2024-08-02 14:57 | Outpatient (AMB) | payer BC, SELFPAY ==
--- NOTE | 2024-08-02 15:04 | A.OFFVIS_ITS ---
Intake Visit Reasons: Ultrasound follow up Forest Pathology Professor: Forest Pathology Professor Present (Constance) Accompanied by: Self / Same As Patient Allergies sumatriptan [From IMITREX] Allergy (Intermediate, Verified 08/02/24 15:07) HIVES, SWELLING azithromycin Adverse Reaction (Intermediate, Verified 08/02/24 15:07) Weakness HPI Comments Details: Presenting for follow-up ultrasound done recently which showed the following: Transabdominal scanning performed. The patient was unable to tolerate transvaginal imaging. Anteverted uterus is 10.4 cm length. Heterogeneous myometrium containing foci of calcification compatible with fibroid. Very limited evaluation with poor delineation of myometrial parenchyma. Endometrium not visualized. Probable visualization of the right ovary with an estimated size of 2.9 x 2.0 x 2.2 cm. This is associated with a 2.2 x 1.4 x 1.5 cm cyst. The left ovary measures 2.3 x 1.6 x 1.7 cm. There is no left adnexal cyst. No free fluid. PFSH Medical History COVID-19 vaccine series completed Hypothyroidism Renal calculi Elevated cholesterol Migraine headache Vertigo Surgical History Hx of abdominal surgery History of tonsillectomy and adenoidectomy H/O colonoscopy Hx of section Family History Maternal Aunt Urinary bladder cancer Social History Are you a primary child caregiver private home to a significant other at home: No Do you presently have visiting nurse or other home services: No Patient Tobacco Use Status: Never used Tobacco Review of Systems Const All systems reviewed & are unremarkable except as noted in HPI and below Reports as per HPI and Reports no additional complaints GI Reports no additional complaints Reports no additional complaints Assessment & Plan Assessment & Plan (1) Ovarian cyst: Code(s): N83.209 - Unspecified ovarian cyst, unspecified side Category: Medical Plan: Discussed with the patient the ovarian cyst by ultrasound. Discussed with the patient the Ultrasound findings, the main limitation of transvaginal ultrasonography alone as a diagnostic tool to distinguish benign from malignant masses relates to its lack of specificity and low positive predictive value for cancer. The differential diagnosis discussed with the patient includes the following but not limited to: benign and malignant gynecological and non- gynecological causes. Will order CA 125, CA 19-9 and CEA. Discussed with the patient that ovarian cancer tumor marker are associated with ovarian malignancies, but also frequently expressed at lower levels by nonmalignant tissue. Normal ovarian cancer tumor marker levels can be found in ovarian cancer patients. Elevation of ovarian cancer tumor marker levels may occur in nonmalignant gynecologic conditions, and in non-gynecologic cancers, discussed with the patient the sensitivity, specificity, positive and negative predictive value in detecting ovarian cancer. Discussed with the patient options of treatment, including laparoscopy ovarian salpingo-oophorectomy vs. expectant management with repeat US in repeating pelvic US in 6 months from previous US. If the ovarian cyst is persistent larger and / or changes in Ultrasound appearance & became complex looking, or higher tumor markers will refer to gynecologic Oncology. All pros, cons, risks and benefits of each approach were discussed with the patient including but not limited to a delay in the diagnosis and treatment of ovarian cancer affecting the prognosis; The patient decided to go ahead with expectant management. Instructions given the patient to schedule a six-month pelvic ultrasound and a follow-up appointment All questions were answered & the patient verbalized understanding and agreed with the plan Orders: Orders Carcinoembryonic Antigen Today N83.209 - Unspecified ovarian cyst, unspecified side US pelvic and transvaginal 6 Months N83.209 - Unspecified ovarian cyst, unspecified side CA-125 Today N83.209 - Unspecified ovarian cyst, unspecified side Carbohydrate Antigen 19-9 Today N83.209 - Unspecified ovarian cyst, unspecified side Coding Level of Care Code Est Pt Level 3 (76403) Diagnoses Ovarian cyst N83.209
--- OUTSIDE RECORDS SUMMARY | 2024-08-02 18:39 | XMS_ITS | Patient Health Record ---
Author Organization [facility] Address [address] [place] [address] Care Team Providers Care Cloth Bleaching Supervisor Name Role Phone Abilio Rolle MD Primary Care Provider Jayme Gandhi Unavailable [phone] Allergies Allergen (clinical drug ingredient) Drug/Non Drug [...] Problem Status W/U Status Risk Notes Problem 087377157 Encounter for screening for malignant neoplasm of colon (Z12.11) Active confirmed Problem [id number] Pre-procedural examination (Z01.818) Active confirmed Problem Diverticulosis of colon (760896430) Diverticulosis of colon (K57.30) Active confirmed Plan Of Treatment Future Test Test Name Order Date COLONOSCOPY 08/21/2021 Insurance Providers Payer Name Payer Address Payer Phone Subscriber Number Group Number Insured Name Patient Relationship to Insured Coverage Start Date Coverage End Date [facility] [address] [place], [place] [id number] [phone] [id number] HERMILO NELSON Self - patient is the insured Medical (General) History Medical History History ICD Code Negative colonoscopy at age 51 [address] Villegas Denies [place],DM,CVA,Lung disease,renal dise ase Vertigo-intermittent Surgical History Surgery Date(Month/Year) 2 C-sections Tonsils and adenoids
== END 2024-08-02 15:33 | disposition home or self-care (01) ==
LOC: HO.HWS 14:57
PROVIDERS: PCP Internal Medicine; Visit Provider Obstetrics & Gynecology
DX: N83.209 Unspecified ovarian cyst, unspecified side (principal)
CPT/HCPCS: 99213

== ENCOUNTER 2024-08-27 07:40 | Outpatient (REF) | payer BC, SELFPAY ==
--- OUTSIDE RECORDS SUMMARY | 2024-08-27 07:42 | XMS_ITS | Patient Health Record ---
Author Organization [facility] Address [address] [place] [address] Care Team Providers Care Manager Quality Compliance Name Role Phone Abilio Rolle MD Primary Care Provider Jayme Gandhi Unavailable [phone] Allergies Allergen (clinical drug ingredient) Drug/Non Drug [...] Problem Status W/U Status Risk Notes Problem [id number] Encounter for screening for malignant neoplasm of colon (Z12.11) Active confirmed Problem [id number] Pre-procedural examination (Z01.818) Active confirmed Problem Diverticulosis of colon (020781074) Diverticulosis of colon (K57.30) Active confirmed Plan Of Treatment Future Test Test Name Order Date COLONOSCOPY 08/21/2021 Insurance Providers Payer Name Payer Address Payer Phone Subscriber Number Group Number Insured Name Patient Relationship to Insured Coverage Start Date Coverage End Date [facility] [address] [place], [place] [id number] [phone] [id number] HERMILO NELSON Self - patient is the insured Medical (General) History Medical History History ICD Code Negative colonoscopy at age [address] Villeags Denies [place],DM,CVA,Lung disease,renal dise ase Vertigo-intermittent Surgical History Surgery Date(Month/Year) 2 C-sections Tonsils and adenoids
== END 2024-08-27 07:41 | disposition home or self-care (01) ==
LOC: HO.MAMMO 07:40
PROVIDERS: PCP Internal Medicine; Referring Provider Internal Medicine; Visit Provider Internal Medicine
DX: Z12.31 Encounter for screening mammogram for malignant neoplasm of breast (principal)
CPT/HCPCS: 77063; 77067

== ENCOUNTER → 2024-08-27 07:45 | Outpatient (BNV) | payer BC, SELFPAY | PROVIDERS: PCP Internal Medicine; Referring Provider Internal Medicine; Visit Provider Internal Medicine | DX: Z12.31 Encounter for screening mammogram for malignant neoplasm of breast (principal) | CPT/HCPCS: 77063; 77067 ==

== ENCOUNTER 2024-08-29 15:19 | Outpatient (AMB) | payer BC, SELFPAY ==
--- OUTSIDE RECORDS SUMMARY | 2024-08-29 15:23 | XMS_ITS | Patient Health Record ---
Author Organization [facility] Address [address] [place] [address] Care Team Providers Care Applied Biology Professor Name Role Phone Abilio Rolle MD Primary Care Provider Jayme Gandhi Unavailable [phone] Allergies Allergen (clinical drug ingredient) Drug/Non Drug [...] Problem Status W/U Status Risk Notes Problem [id number] Encounter for screening for malignant neoplasm of colon (Z12.11) Active confirmed Problem [id number] Pre-procedural examination (Z01.818) Active confirmed Problem Diverticulosis of colon (383073555) Diverticulosis of colon (K57.30) Active confirmed Plan Of Treatment Future Test Test Name Order Date COLONOSCOPY 08/21/2021 Insurance Providers Payer Name Payer Address Payer Phone Subscriber Number Group Number Insured Name Patient Relationship to Insured Coverage Start Date Coverage End Date [facility] [address] [place], [place] [id number] HERMILO NELSON Self - patient is the insured Medical (General) History Medical History History ICD Code Negative colonoscopy at age [address] Villegas Denies [place],DM,CVA,Lung disease,renal dise ase Vertigo-intermittent Surgical History Surgery Date(Month/Year) 2 C-sections Tonsils and adenoids
[2024-08-29 15:32] VITALS: BP 118/70; PULSE 74; TEMP 36.4; O2SAT 98; BMI 19.8
--- NOTE | 2024-08-29 15:32 | MHC.PC.OV ---
Vital Signs 08/29/24 15:32 Height 5 ft 2.5 in Weight 110 lb BMI 19.8 BP 118/70 Blood Pressure Location Lt brachial Position Sitting Pulse 74 Pulse Source Pulse Oximeter Temp 97.5 F Temp Source Axillary Pulse Oximetry (%) 98 Oxygen Delivery Method Room Air Intake Visit Reasons: Routine Foot Roentgenologist Required: No Accompanied by: Self / Same As Patient Allergies sumatriptan [From IMITREX] Allergy (Intermediate, Verified 09/06/24 20:05) HIVES, SWELLING azithromycin Adverse Reaction (Intermediate, Verified 09/06/24 20:05) Weakness Medication List - Last Reconciled 09/06/24 by Pablo Santana MD cholecalciferol (vitamin D3) (Vitamin D3) 10 mcg PO DAILY Tobacco use date assessed: 08/29/24 Dental Screening Dental Screen Date: 08/29/24 Did you have a dental visit in the last 12 months?: Yes Did you have a dental problem in the last 6 months where you did not have access to dental care?: No HPI Routine HPI Details Presents for a routine visit, No concerns. [facility] Medical History COVID-19 vaccine series completed Hypothyroidism Renal calculi Elevated cholesterol Migraine headache Vertigo Surgical History Hx of abdominal surgery History of tonsillectomy and adenoidectomy H/O colonoscopy (~10/18/21) Hx of section Family History Maternal Aunt Urinary bladder cancer Mother No problems noted. Father No problems noted. Social History Housing: House Are you a primary outdoor emergency care technician to a significant other at home: No Do you presently have visiting nurse or other home services: No Patient Tobacco Use Status: Never used Tobacco e-Cigarette/Vaping Use: Never Used service: No Current occupational status: employed Cognitive needs: No Hearing needs: No Vision needs: Yes (reading glasses) Questionnaire PHQ-9 Over the last 2 weeks, how often have you been bothered by any of the following problems? 1. Little interest or pleasure in doing things: not at all 2. Feeling down, depressed, or hopeless: not at all 3. Trouble falling or staying asleep, or sleeping too much: not at all 4. Feeling tired or having little energy: not at all 5. Poor appetite or overeating: not at all 6. Feeling bad about yourself - or that you are a failure or have let yourself or your family down: not at all 7. Trouble concentrating on things, such as reading the newspaper or watching television: not at all 8. Moving or speaking so slowly that other people could have noticed. Or the opposite - being so fidgety or restless that you have been moving around a lot more than usual: not at all 9. Thoughts that you would be better off or of hurting yourself in some way: not at all Total score: 0 Source: Developed by Drs. Jayme Keller, Anita Burnett, Alpesh Wilcox and colleagues, with an educational ame from [employer]. Thrive Questionnaire Date Thrive assessed: 08/29/24 I am a: Patient Within the past 12 months, did the food you bought not last and you didn't have the money to get more?: Never true Within the past 12 months, did you worry whether your food would run out before you got money to buy more?: Never true Do you have trouble paying for medicines?: No Do you have trouble getting transportation to medical appointments?: No Do you have trouble paying your heating and electricity bill?: No Do you have trouble taking care of your child, family member or friend?: No Do you have trouble with day-to-day activities such as bathing, preparing meals, shopping, managing finances, etc.?: No Are you currently unemployed and looking for a job?: No Are you interested in more education?: No THRIVE Score: 0 AUDIT C Alcohol Use Questionnaire (AUDIT-C) 1. How often do you have a drink containing alcohol?: Never 3. How often do you have six or more drinks on one occasion?: Never Total Score: 0 MINOO-7 AMB Questionnaire MINOO-7 Date MNIOO - 7 assessed: 08/29/24 Feeling nervous, anxious, or on edge: 0 = Not at all Not being able to stop or control worryin = Not at all Worrying too much about different things: 0 = Not at all Trouble relaxin = Not at all Being so restless that it is hard to sit still: 0 = Not at all Becoming easily annoyed or irritable: 0 = Not at all Feeling afraid as if something awful might happen: 0 = Not at all Total MINOO-7 score (0-4 normal; 5-9 mild; 10-14 moderate; 15-21 severe): 0 Source: Developed by Drs. Jayme Keller, Anita Burnett, Alpesh Wilcox and colleagues, with an educational ame from [employer]. Physical exam (Primary Care) Vital Signs: Last Vital Signs Temp 97.5 F 08/29/24 15:32 Pulse 74 08/29/24 15:32 BP 118/70 08/29/24 15:32 Pulse Ox 98 08/29/24 15:32 Oxygen Delivery Method Room Air 08/29/24 15:32 Care Plan Goal for BP management: BP in range BMI result Body Mass Index 19.8 Tobacco/Smoking Status: Tobacco use Status Tobacco use date assessed 08/29/24 08/29/24 15:34 Patient Tobacco Use Status Never used Tobacco 08/29/24 15:34 e-Cigarette/Vaping Use Never Used 08/29/24 15:34 PHQ-9: PHQ-9 Score PHQ-9: Total score 0 08/29/24 15:55 Thrive Assessment: Date of Thrive Assessment Date Thrive assessed 08/29/24 08/29/24 15:34 Const General: cooperative and healthy appearing Nutritional Appearance: well nourished Orientation/consciousness: patient oriented x3 Limitations: no limitations HENMT Head: Yes normal to inspection Eyes General: appearance normal, both eyes and all related structures Neck Neck: Yes normal visual inspection Chest Chest palpation & inspection: normal palpation of entire chest wall Resp Effort & Inspection: normal respiratory effort Neuro General: patient oriented x3 Coding Level of Care Code New Pt Level 3 (30243) Complex EM visit Add On G2211 Diagnoses Hypothyroidism E03.9 Assessment & Plan Assessment & Plan (1) Hypothyroidism: Comment: borderline-being monitored-no Rx at present time Code(s): E03.9 - Hypothyroidism, unspecified Category: Medical Plan: bw ordered Orders: Orders Basic Metabolic Panel 08/29/24 E03. - Hypothyroidism, unspecified UA and rflx microscopic 08/29/24 E03. - Hypothyroidism, unspecified Thyroid Stimulating Hormone 08/29/24 E03. - Hypothyroidism, unspecified Complete Blood Count no Diff 08/29/24. - Hypothyroidism, unspecified Lipid Panel 08/29/243. - Hypothyroidism, unspecified Liver Panel 08/29/24 E03. - Hypothyroidism, unspecified
== END 2024-08-29 16:21 | disposition home or self-care (01) ==
LOC: HO.HMCHD 15:20
PROVIDERS: PCP Internal Medicine; Visit Provider Internal Medicine
DX: E03.9 Hypothyroidism, unspecified (principal)

== ENCOUNTER → 2024-08-29 15:19 | Outpatient (BNVA) | payer BC, SELFPAY | PROVIDERS: PCP Internal Medicine; Visit Provider Internal Medicine | DX: Z13.89 Encounter for screening for other disorder (principal) ==

== ENCOUNTER 2024-09-23 06:10 | Outpatient (REF) | payer BC, SELFPAY ==
[2024-09-23 07:45] LABS: Hematocrit 40.2 % (37.0-47.0); Hemoglobin 13.7 g/dl (12.0-16.0); Mean Corpuscular HGB Conc 34.1 g/dl (31.0-35.0); Mean Corpuscular Hemoglobin 30.2 pg (27.0-33.0); Mean Corpuscular Volume 88.7 fL (80.0-98.0); Mean Platelet Volume 9.4 fL (9.4-12.3); Platelet Count 250 X10*3/uL (160-400); Red Blood Count 4.53 X10*6/uL (4.20-5.50); Red Cell Distribution Width 11.6 % (11.0-16.0); White Blood Count 3.8 X10*3/uL (4.8-10.8)
[2024-09-23 07:59] LABS: Alanine Aminotransferase 14 U/L (0-31); Albumin Level 4.1 g/dL (3.5-5.0); Alkaline Phosphatase 49 U/L (39-117); Anion Gap 10 (12-20); Aspartate Amino Transferase 18 U/L (5-31); Bilirubin Direct 0.2 mg/dL (0.0-0.5); Bilirubin Total 0.8 mg/dL (0.0-1.0); Blood Urea Nitrogen 23 mg/dL (9-16); Calcium 9.3 mg/dL (8.4-10.2); Carbon Dioxide 27 mmol/L (22-29); Chloride 109 mmol/L (96-108); Cholesterol 221 mg/dL (<200); Estimated Glomerular Filt Rate > 60; Glucose Random 90 mg/dL (60-115); HDL Cholesterol 63 mg/dL (>40); LDL Cholesterol Calculated 145 mg/dL (<100); Sodium 142 mmol/L (135-145); Total Protein 6.2 g/dL (6.5-8.0); Triglycerides 67 mg/dL (<150)
[2024-09-23 08:18] LABS: Thyroid Stimulating Hormone 2.57 uIU/mL (0.32-4.0)
[2024-09-23 10:55] LABS: Appearance Urine Clear; Color Urine Yellow; Glucose Urine UA Negative (Negative); Leukocyte Esterase Urine Negative (Negative); Nitrite Urine Negative (Negative); Specific Gravity - Urine 1.015 (1.005-1.025); Urine Blood Negative (Negative); Urine Ketones Negative (Negative); Urine Protein Negative (Neg-Trace)
== END 2024-09-23 06:11 | disposition home or self-care (01) ==
LOC: HO.LAB 06:10
PROVIDERS: PCP Internal Medicine; Visit Provider Internal Medicine
DX: E03.9 Hypothyroidism, unspecified (principal)
CPT/HCPCS: 36415; 80048; 80061; 80076; 81003; 84443; 85027

== ENCOUNTER 2024-09-27 07:52 | Outpatient (REF) | payer BC, SELFPAY ==
--- NOTE | ~2024-09-27 | US_ITS ---
EXAMINATION: ULTRASOUND RENAL, BILATERALLY. CLINICAL INFORMATION: Calculus of kidney. COMPARISON: Correlated to CT dated June 17, 2024 demonstrated no obstructing nephrolithiasis, right kidney and nonobstructing nephrolithiasis, left kidney. TECHNIQUE: Real-time ultrasound of the kidneys using grayscale and color Doppler technique. FINDINGS: Right kidney: 10 x 5 x 5 cm. Normal echotexture. Normal renal cortical thickness. Dilated pelvicalyceal system and proximal ureter. Multiple hyperechoic structures measuring less than 5 mm in maximal diameter. Left kidney: 11 x 5 x 5 cm. Normal echotexture. Normal renal cortical thickness. Mild prominent pelvicalyceal system. Multifocal hyperechoic structures measuring less than 4 mm in maximum diameter. US/US renal BI IMPRESSION: Nephrolithiasis, bilaterally resulting in [id number] right hydronephrosis and mild left hydronephrosis. Electronically signed by: Darwin Hughes MD 09/27/2024 08:32 AM EDT
--- OUTSIDE RECORDS SUMMARY | 2024-09-27 07:55 | XMS_ITS | Patient Health Record ---
Author Organization [facility] Address [address] [place] [address] Care Team Providers Care Origination Specialist Name Role Phone Abilio Rolle MD Primary Care Provider Jayme Gandhi Unavailable [phone] Allergies Allergen (clinical drug ingredient) Drug/Non Drug [...] Problem Status W/U Status Risk Notes Problem [id number] Encounter for screening for malignant neoplasm of colon (Z12.11) Active confirmed Problem [id number] Pre-procedural examination (Z01.818) Active confirmed Problem Diverticulosis of colon (081846755) Diverticulosis of colon (K57.30) Active confirmed Plan Of Treatment Future Test Test Name Order Date COLONOSCOPY 08/21/2021 Insurance Providers Payer Name Payer Address Payer Phone Subscriber Number Group Number Insured Name Patient Relationship to Insured Coverage Start Date Coverage End Date [facility] [address] [place], [place] [id number] HERMILO NELSON Self - patient is the insured Medical (General) History Medical History History ICD Code Negative colonoscopy at age [address] Villegas Denies [place],DM,CVA,Lung disease,renal dise ase Vertigo-intermittent Surgical History Surgery Date(Month/Year) 2 C-sections Tonsils and adenoids
== END 2024-09-27 07:53 | disposition home or self-care (01) ==
LOC: HO.US 07:52
PROVIDERS: PCP Internal Medicine; Visit Provider Urology
DX: N20.0 Calculus of kidney (principal)
CPT/HCPCS: 76775

== ENCOUNTER → 2024-09-27 07:53 | Outpatient (BNV) | payer BC, SELFPAY | PROVIDERS: PCP Internal Medicine; Visit Provider Radiology Diagnostic Radiology | DX: N20.0 Calculus of kidney (principal) | CPT/HCPCS: 76775 ==

== ENCOUNTER 2024-10-05 15:25 | Outpatient (AMB) | payer BC, SELFPAY ==
--- NOTE | 2024-10-05 15:29 | A.OFFVIS_ITS ---
Intake Visit Reasons: 3m/US/[facility] Intake Note: Patient is present for 3M/US/L[facility]OL[facility] Urology Medication:NONE Antibiotic Allergy:AZITHROMYCIN Blood Thinner:NONE Academic Registrar Required: No Allergies sumatriptan [From IMITREX] Allergy (Intermediate, Verified 10/05/24 15:35) HIVES, SWELLING azithromycin Adverse Reaction (Intermediate, Verified 10/05/24 15:35) Weakness HPI Comments Details: Brandy is a pleasant female. She is a patient of Dr. Rolle. She is seen for the following urologic conditions - nephrolithiasis Here for follow-up Discussed ultrasound finding Bilateral small stones Discussed Uro risk - recommend additional lemon juice to water, discussed potassium citrate Six-month follow-up repeat imaging and Uro risk Nephrolithiasis Prior stones Imaging - There is a cluster of 7 x 8 mm calculi within the lumen of the proximal right ureter resulting in moderate to severe hydroureteronephrosis. - 10/02 renal ultrasound small stones bilateral Intervention - 07/05 right ureteroscopy associated with urinary retention Urorisk - 10/02 moderate volume - needs 16 oz more, normal calcium, sodium, oxalate PFSH Medical History COVID-19 vaccine series completed Hypothyroidism Renal calculi Elevated cholesterol Migraine headache Vertigo Surgical History Hx of abdominal surgery History of tonsillectomy and adenoidectomy H/O colonoscopy (~10/18/21) Hx of section Family History Maternal Aunt Urinary bladder cancer Mother No problems noted. Father No problems noted. Social History Housing: House Are you a primary youth care specialist to a significant other at home: No Do you presently have visiting nurse or other home services: No Patient Tobacco Use Status: Never used Tobacco e-Cigarette/Vaping Use: Never Used service: No Current occupational status: employed Cognitive needs: No Hearing needs: No Vision needs: Yes (reading glasses) Review of Systems Const Denies chills and Denies fever(s) Card Reports no additional complaints and Denies syncope Resp Denies cough GI Denies abdominal pain and Denies heartburn Reports as per HPI and Denies change in libido Neuro Denies syncope Psych Denies change in libido Endo Denies change in libido Physical Exam Const General: cooperative, healthy appearing, comfortable and no acute distress Orientation/consciousness: patient oriented x3 HEENT Face and sinus: Yes normal facial exam Mouth: moist mucous membranes Neck Neck: Yes normal visual inspection, Yes full ROM and Yes trachea midline Chest Chest palpation & inspection: normal inspection of the chest Resp Effort & Inspection: normal respiratory effort, able to speak in complete sentences and no respiratory distress GI Inspection: Yes normal to inspection Back/Spine/Pelvis Cervical Spine: normal cervical lordosis Thoracic/Lumbar Spine: thoracic and lumbar spine normal to inspection Skin General skin exam: no rashes or lesions noted Neuro General: patient oriented x3, gait normal, tone normal and moves all extremities Extrem General: Yes normal to inspection and Yes capillary refill normal Assessment & Plan Assessment & Plan (1) Renal calculi: Comment: With moderate to severe hydro ureteronephrosis Code(s): N20.0 - Calculus of kidney Category: Medical (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 While every effort has been made to ensure accuracy deputy probation officer errors may have been included. Imaging studies, laboratory and physical exam results were discussed and reviewed in detail. No major barriers to patient understanding were identified. An opportunity to ask questions regarding the treatment plan was provided. All questions were answered. The patient expressed understanding and agreement with the above treatment plan. The patient is aware they should contact our office by phone for worsening of their current condition or the appearance of new urologic symptoms. Compliance is encouraged with any medications and followup testing that is ordered. It is a privilege to participate in the urologic care of your patient. If you have any questions or concerns regarding treatment for the above conditions, or other urologic issues, please do not hesitate to contact me. The office telephone contact is [phone]. 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
--- OUTSIDE RECORDS SUMMARY | 2024-10-05 15:59 | XMS_ITS | Patient Health Record ---
Author Organization [facility] Address [address] [place] [address] Care Team Providers Care Apron Cleaner Name Role Phone Abilio Rolle MD Primary Care Provider Jayme Gandhi Unavailable [phone] Allergies Allergen (clinical drug ingredient) Drug/Non Drug [...] Problem Status W/U Status Risk Notes Problem 404721904 Encounter for screening for malignant neoplasm of colon (Z12.11) Active confirmed Problem 304456426399363 Pre-procedural examination (Z01.818) Active confirmed Problem Diverticulosis of colon (928730566) Diverticulosis of colon (K57.30) Active confirmed Plan Of Treatment Future Test Test Name Order Date COLONOSCOPY 08/21/2021 Insurance Providers Payer Name Payer Address Payer Phone Subscriber Number Group Number Insured Name Patient Relationship to Insured Coverage Start Date Coverage End Date [facility] [address] [place], [place] [id number] HERMILO NELSON Self - patient is the insured Medical (General) History Medical History History ICD Code Negative colonoscopy at age [address] Villegas Denies [place],DM,CVA,Lung disease,renal dise ase Vertigo-intermittent Surgical History Surgery Date(Month/Year) 2 C-sections Tonsils and adenoids
== END 2024-10-05 16:33 | disposition home or self-care (01) ==
LOC: HO.HUSH 15:25
PROVIDERS: PCP Internal Medicine; Visit Provider Urology
DX: N20.0 Calculus of kidney (principal); R82.991 Hypocitraturia
CPT/HCPCS: 99213

== ENCOUNTER 2024-10-18 09:52 | Emergency (ER) | payer BC, SELFPAY ==
--- NOTE | ~2024-10-18 | XR_ITS ---
EXAMINATION: XR CHEST CLINICAL INFORMATION: CHEST PRESSURE COMPARISON: 02/16/2020. TECHNIQUE: 2 views of the chest were obtained. FINDINGS: The cardiac, hilar, and mediastinal contours are normal. The lungs are clear bilaterally. There is no pneumothorax or pleural effusion. There is no focal osseous or soft tissue abnormality. Mild right convex thoracic scoliosis. XR/XR chest 2V IMPRESSION: No active pulmonary disease. Electronically signed by: Vinicio Bosch MD 10/18/2024 10:32 AM EDT
[2024-10-18 09:54] VITALS: BP 146/49; PULSE 55; RESP 18; TEMP 36.1; O2SAT 98; BMI 19.8
--- NOTE | 2024-10-18 09:59 | ECG_ITS ---
Test Reason : IRREG HEART RATE Blood Pressure : */* mmHG Vent. Rate : 77 BPM Atrial Rate : 77 BPM P-R Int : 116 ms QRS Dur : 74 ms QT Int : 412 ms P-R-T Axes : 38 27 49 degrees QTcB Int : 466 ms Sinus rhythm with sinus arrhythmia with occasional Premature ventricular complexes Otherwise normal ECG When compared with ECG of 05-Jun-2021 16:43, Premature ventricular complexes are now Present Referred By: Generic ED Physician Electronically Signed By: GILDA RODRIGUEZ MD
[2024-10-18 10:16] LABS: MANUAL DIFF FLAG NO
[2024-10-18 10:19] LABS: Basophils Percent Auto 0.6 % (0-2); Eosinophils Absolute Auto 0.1 X10*3/uL (0.0-0.4); Eosinophils Percent Auto 1.1 % (0-4); Hematocrit 41.8 % (37.0-47.0); Hemoglobin 14.3 g/dl (12.0-16.0); Imm Gran Abs Auto 0.02 X10*3/uL (0.00-0.03); Imm Gran Pct Auto 0.4 % (0.0-0.4); Lymphocytes Absolute Auto 1.6 X10*3/uL (1.2-4.9); Lymphocytes Percent Auto 29.3 % (20-40); Mean Corpuscular HGB Conc 34.2 g/dl (31.0-35.0); Mean Corpuscular Hemoglobin 30.1 pg (27.0-33.0); Mean Platelet Volume 8.6 fL (9.4-12.3); Monocytes Absolute Auto 0.5 X10*3/uL (0.1-1.2); Monocytes Percent Auto 9.6 % (2-11); Neutrophils Absolute Auto 3.1 x10*3/uL (2.0-8.3); Platelet Count 268 X10*3/uL (160-400); Red Blood Count 4.75 X10*6/uL (4.20-5.50); Red Cell Distribution Width 11.4 % (11.0-16.0); White Blood Count 5.3 X10*3/uL (4.8-10.8)
[2024-10-18 10:29] LABS: Anion Gap 14 (12-20); Blood Urea Nitrogen 16 mg/dL (9-16); Calcium 9.2 mg/dL (8.4-10.2); Carbon Dioxide 24 mmol/L (22-29); Chloride 107 mmol/L (96-108); Creatinine Clr Calc Pharmacy 54.9; Estimated Glomerular Filt Rate > 60; Glucose Random 97 mg/dL (60-115); Sodium 141 mmol/L (135-145)
[2024-10-18 10:38] LABS: Troponin-I High Sensitivity < 2.7 ng/L (<3.5-17.0)
--- OUTSIDE RECORDS SUMMARY | 2024-10-18 11:47 | XMS_ITS | Patient Health Record ---
Author Organization [facility] Address [address] [place] [address] Care Team Providers Care Keg Inspector Name Role Phone Abilio Rolle MD Primary Care Provider Jayme Gandhi Unavailable [phone] Allergies Allergen (clinical drug ingredient) Drug/Non Drug [...] Problem Status W/U Status Risk Notes Problem 420737117 Encounter for screening for malignant neoplasm of colon (Z12.11) Active confirmed Problem 422093927883936 Pre-procedural examination (Z01.818) Active confirmed Problem Diverticulosis o f colon (K57.30) Active confirmed Plan Of Treatment Future Test Test Name Order Date COLONOSCOPY 08/21/2021 Insurance Providers Payer Name Payer Address Payer Phone Subscriber Number Group Number Insured Name Patient Relationship to Insured Coverage Start Date Coverage End Date [facility] [address] [place], [place] [id number] HERMILO NELSON Self - patient is the insured Medical (General) History Medical History History ICD Code Negative colonoscopy at age [address] Villegas Denies [place],DM,CVA,Lung disease,renal dise ase Vertigo-intermittent Surgical History Surgery Date(Month/Year) 2 C-sections Tonsils and adenoids
--- NOTE | 2024-10-18 20:55 | ED.GENADULT ---
HPI - General Adult General Chief complaint: Arrhythmia/Palpitations Stated complaint: Irregular heart beat, sent by Time Seen by Provider: 10/18/24 20:55 History of Present Illness ED Provider: Ya WITT narrative: The patient is an ordinarily healthy 64-year-old who has been having a lot of palpitations and chest pressure and difficulty sleeping over the last week. She has had no shortness of breath. No pain or swelling in her legs. She is on no medications. She is on no hormonal therapy. She is a nonsmoker. Related Data Home Medications ?Medication ?Instructions ?Recorded ?Confirmed cholecalciferol (vitamin D3) 10 10 mcg PO DAILY 10/14/21 06/30/24 mcg (400 unit) capsule (Vitamin D3) Previous Rx's ?Medication ?Instructions ?Recorded trazodone 50 mg tablet 50 mg PO BEDTIME PRN sleep #20 tabs 10/18/24 Allergies Allergy/AdvReac Type Severity Reaction Status Date / Time sumatriptan [From IMITREX] Allergy Intermediate HIVES, Verified 10/18/24 09:57 SWELLING azithromycin AdvReac Intermediate Weakness Verified 10/18/24 09:57 Review of Systems Review of Systems: Yes all other systems are reviewed and are negative PMF Past Medical History Medical History COVID-19 vaccine series completed Hypothyroidism Renal calculi Elevated cholesterol Migraine headache Vertigo Surgical History Hx of abdominal surgery History of tonsillectomy and adenoidectomy H/O colonoscopy (~10/18/21) Hx of section Family History Family History Maternal Aunt Urinary bladder cancer Mother No problems noted. Father No problems noted. Social History Social History Housing: House Are you a primary pet care assistant to a significant other at home: No Do you presently have visiting nurse or other home services: No Patient Tobacco Use Status: Never used Tobacco e-Cigarette/Vaping Use: Never Used Advance Directives: Yes Advance Directives Information Provided: Yes Advance Directives on File: No service: No Current occupational status: employed Cognitive needs: No Hearing needs: No Vision needs: Yes (reading glasses) Physical Exam ED Vital Signs: Vital Signs - 24 hr 10/18/24 09:54 Temperature 97 F Pulse Rate 55 Respiratory Rate 18 Blood Pressure 146/49 H Pulse Oximetry 98 Oxygen Delivery Method Room Air BMI result Body Mass Index 19.8 Const Other: The patient is a slim, healthy looking 64-year-old. She looks much younger than her age. She looks entirely well. Orientation/consciousness: patient oriented x3 HENMT Other: Face is symmetrical. Mucous membranes moist. Eyes General: appearance normal, both eyes and all related structures Neck Neck: Yes normal visual inspection, Yes full ROM and Yes no JVD Resp Effort & Inspection: normal respiratory effort Auscultation: clear to auscultation bilaterally Cardio Rate: regular rate Rhythm: regular rhythm Heart sounds: S1 normal heart sound present and S2 normal heart sound present Skin Other: Skin is dry and unremarkable Neuro General: patient oriented x3, gait normal, tone normal, moves all extremities, no focal motor deficits and CN's II-XI intact bilaterally Extrem Other: No calf swelling or tenderness, no asymmetry, no edema Medical Decision Making Medical Decision Making [facility] Narrative: The patient is a very healthy looking 64-year-old. She is on no medications. She looks considerably younger than her age. She looks quite physically fit. She presents with about 1 week's worth of palpitations and a sense of a rapid heartbeat and also worsening difficulty sleeping. The patient looks extremely well. Her workup in the emergency room includes undetectable troponins, an unremarkable EKG, and an unremarkable chest x-ray. Clinically the patient looks extremely well. I do not think her history is suggestive of an acute coronary syndrome. I do not think her history of physical is suggestive of a pulmonary embolism. I suspect that she may be having some kind of palpitations but she is in sinus rhythm here in the emergency room. She is also having difficulty sleeping. She admits to increased stress at her work place. I think the patient is safe for discharge to follow up with the regular doctor. She might need a Holter monitor. I will give her a prescription for trazodone that she may try to see if this helps with sleeping. She should return if worse. Lab Data 10/18/24 10:06 06/10/25 10:06 Labs: Lab Results 10/18/24 10/18/24 Range/Units 10:06 20:39 WBC 5.3 (4.8-10.8) X10*3/uL RBC 4.75 (4.20-5.50) X10*6/uL Hgb 14.3 (12.0-16.0) g/dl Hct 41.8 (37.0-47.0) % MCV 88.0 (80.0-98.0) fL MCH 30.1 (27.0-33.0) pg MCHC 34.2 (31.0-35.0) g/dl RDW 11.4 (11.0-16.0) % Plt Count 268 (160-400) X10*3/uL MPV 8.6 L (9.4-12.3) fL Immature Gran % (Auto) 0.4 (0.0-0.4) % Neut % (Auto) 59.0 (45-73) % Lymph % (Auto) 29.3 (20-40) % [place] % (Auto) 9.6 (2-11) % Eos % (Auto) 1.1 (0-4) % Baso % (Auto) 0.6 (0-2) % Lymph # (Auto) 1.6 (1.2-4.9) X10*3/uL [place] # (Auto) 0.5 (0.1-1.2) X10*3/uL Eos # (Auto) 0.1 (0.0-0.4) X10*3/uL Baso # (Auto) 0.0 (0.0-0.2) X10*3/uL Abs Immat Gran (auto) 0.02 (0.00-0.03) X10*3/uL Absolute Neuts (auto) 3.1 (2.0-8.3) x10*3/uL Absolute Nucleated RBC 0.000 (0.0-0.012) X10*3/uL Nucleated RBC % (auto) 0.0 (0.0-0.2) /100WBC Sodium 141 (135-145) mmol/L Potassium 4.0 (3.3-5.1) mmol/L Chloride 107 (96-108) mmol/L Carbon Dioxide 24 (22-29) mmol/L Anion Gap 14 (12-20) BUN 16 (9-16) mg/dL Creatinine 0.81 (0.5-1.4) mg/dL Estim Creat Clear Calc 54.9 Estimated GFR > 60 Random Glucose 97 (60-115) mg/dL Calcium 9.2 (8.4-10.2) mg/dL Troponin I High Sens < 2.7 < 2.7 (<3.5-17.0) ng/L B-Natriuretic Peptide 11 (<100) pg/mL Independent Interpretation I performed an independent interpretation of an: EKG Interpretation: EKG at 10:01 shows normal sinus rhythm at 77 beats per minute. There is a sinus arrhythmia with the occasional premature ventricular complexes. It is an otherwise normal EKG. Discharge Plan Discharge Clinical Impression: Palpitations, Chest pressure, Difficulty sleeping Patient Disposition: Home, Self-Care Additional Instructions: Your testing in the emergency room today seems very reassuring I think you should plan on following up with your primary care doctor. It may be good for you to try a wearable monitor to see if this helps make any diagnosis with regard to the palpitations you has been experiencing. Please call your primary care doctor's office in the morning to arrange some kind of a wearable volunteer services assistant. Also make an appointment to discuss all your other symptoms as well. I have sent a prescription for a medication called trazodone which you can use at bedtime to see if it helps with sleep. Please return to the emergency room if you feel significantly worse at any time, especially if you feel short of breath. Prescriptions: New trazodone 50 mg tablet 50 mg PO BEDTIME PRN (Reason: sleep) Qty: 20 0RF No Action cholecalciferol (vitamin D3) [Vitamin D3] 10 mcg (400 unit) Capsule 10 mcg PO DAILY Referrals: Pablo Santana MD [Primary Care Provider] - Print Language: Jordanian
[2024-10-18 21:07] LABS: B Type Natriuretic Peptide 11 pg/mL (<100); Troponin-I High Sensitivity < 2.7 ng/L (<3.5-17.0)
[2024-10-18 21:15] VITALS: BP 113/85; PULSE 83; RESP 16; TEMP 36.9; O2SAT 96
== END 2024-10-18 21:15 | disposition home or self-care (01) ==
PROVIDERS: Physician Assistant; Emergency Provider Emergency Medicine; PCP Internal Medicine
DX: R00.2 Palpitations (principal); G47.00 Insomnia, unspecified; R06.89 Other abnormalities of breathing; R07.89 Other chest pain; R06.02 Shortness of breath; Z79.899 Other long term (current) drug therapy
CPT/HCPCS: 36415; 71046; 80048; 83880; 84484; 85025; 93005; 99283; 99284

== ENCOUNTER → 2024-10-18 09:59 | Outpatient (BNV) | payer BC, SELFPAY | PROVIDERS: PCP Internal Medicine; Visit Provider Internal Medicine Cardiovascular Disease | DX: I49.3 Ventricular premature depolarization (principal); I49.9 Cardiac arrhythmia, unspecified | CPT/HCPCS: 93010 ==

== ENCOUNTER → 2024-10-18 10:00 | Outpatient (BNV) | payer BC, SELFPAY | PROVIDERS: PCP Internal Medicine; Visit Provider Radiology Diagnostic Radiology | DX: R07.9 Chest pain, unspecified (principal) | CPT/HCPCS: 71046 ==

== ENCOUNTER 2024-10-26 15:41 | Outpatient (AMB) | payer BC, SELFPAY ==
[2024-10-26 13:25] VITALS: BP 112/70; PULSE 63; TEMP 36.3; O2SAT 99; BMI 19.9
--- NOTE | 2024-10-26 13:25 | MHC.PC.OV ---
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 Accompanied by: Self / Same As Patient Allergies sumatriptan (From IMITREX) Allergy (Intermediate, Verified 10/26/24 13:26) HIVES, SWELLING azithromycin Adverse Reaction (Intermediate, Verified 10/26/24 13:26) Weakness Tobacco use date assessed: 10/26/24 Dental Screening Dental Screen Date: 10/26/24 Did you have a dental visit in the last 12 months?: Yes Did you have a dental problem in the last 6 months where you did not have access to dental care?: No [facility] Medical History (Updated 10/26/24 @ 16:00 by Pablo Santana MD) Palpitations COVID-19 vaccine series completed Hypothyroidism Renal calculi Elevated cholesterol Migraine headache Vertigo Surgical History Hx of abdominal surgery History of tonsillectomy and adenoidectomy H/O colonoscopy (~10/18/21) Hx of section Family History (Updated 10/26/24 @ 15:48 by Michelle Meléndez MA) Maternal Aunt Urinary bladder cancer Mother No problems noted. Father No problems noted. Social History Housing: House Are you a primary wound care specialist to a significant other at home: No Do you presently have visiting nurse or other home services: No Patient Tobacco Use Status: Never used Tobacco e-Cigarette/Vaping Use: Never Used service: No Current occupational status: employed Cognitive needs: No Hearing needs: No Vision needs: Yes (reading glasses) Questionnaire PHQ-9 Over the last 2 weeks, how often have you been bothered by any of the following problems? 1. Little interest or pleasure in doing things: not at all 2. Feeling down, depressed, or hopeless: not at all 3. Trouble falling or staying asleep, or sleeping too much: not at all 4. Feeling tired or having little energy: not at all 5. Poor appetite or overeating: not at all 6. Feeling bad about yourself - or that you are a failure or have let yourself or your family down: not at all 7. Trouble concentrating on things, such as reading the newspaper or watching television: not at all 8. Moving or speaking so slowly that other people could have noticed. Or the opposite - being so fidgety or restless that you have been moving around a lot more than usual: not at all 9. Thoughts that you would be better off or of hurting yourself in some way: not at all Total score: 0 Source: Developed by Drs. Jayme Keller, Anita Burnett, Alpesh Wilcox and colleagues, with an educational ame from [employer]. Thrive Questionnaire Date Thrive assessed: 10/26/24 I am a: Patient Within the past 12 months, did the food you bought not last and you didn't have the money to get more?: Never true Within the past 12 months, did you worry whether your food would run out before you got money to buy more?: Never true Do you have trouble paying for medicines?: No Do you have trouble getting transportation to medical appointments?: No Do you have trouble paying your heating and electricity bill?: No Do you have trouble taking care of your child, family member or friend?: No Do you have trouble with day-to-day activities such as bathing, preparing meals, shopping, managing finances, etc.?: No Are you currently unemployed and looking for a job?: No Are you interested in more education?: No THRIVE Score: 0 AUDIT C Alcohol Use Questionnaire (AUDIT-C) 1. How often do you have a drink containing alcohol?: Never 3. How often do you have six or more drinks on one occasion?: Never Total Score: 0 MINOO-7 AMB Questionnaire MINOO-7 Date MINOO - 7 assessed: 10/26/24 Feeling nervous, anxious, or on edge: 0 = Not at all Not being able to stop or control worryin = Not at all Worrying too much about different things: 0 = Not at all Trouble relaxin = Not at all Being so restless that it is hard to sit still: 0 = Not at all Becoming easily annoyed or irritable: 0 = Not at all Feeling afraid as if something awful might happen: 0 = Not at all Total MINOO-7 score (0-4 normal; 5-9 mild; 10-14 moderate; 15-21 severe): 0 Source: Developed by Drs. Jayme Keller, Anita Burnett, Alpesh Wilcox and colleagues, with an educational ame from [employer]. Physical exam (Primary Care) Vital Signs: Last Vital Signs Temp 97.3 F 10/26/24 13:25 Pulse 63 10/26/24 13:25 BP 112/70 10/26/24 13:25 Pulse Ox 99 10/26/24 13:25 Oxygen Delivery Method Room Air 10/26/24 13:25 BMI result Body Mass Index 19.9 Tobacco/Smoking Status: Tobacco use Status Tobacco use date assessed 10/26/24 10/26/24 13:28 Patient Tobacco Use Status Never used Tobacco 10/26/24 15:48 e-Cigarette/Vaping Use Never Used 10/26/24 13:28 PHQ-9: PHQ-9 Score PHQ-9: Total score 0 10/26/24 15:48 Thrive Assessment: Date of Thrive Assessment Date Thrive assessed 10/26/24 10/26/24 13:28 Coding Level of Care Code Est Pt Level 4 (32712) Complex EM visit Add On G2211 Diagnoses Palpitations R00.2 Assessment & Plan Assessment & Plan (1) Palpitations: Code(s): R00.2 - Palpitations Category: Medical Plan: ER note reviewd. EKG revd, bw revd. Holter monitor to be ordered. Plan History of Present Illness - The patient is a 64-year-old female presenting with fluctuating heart rate. - She experienced significant heart rate fluctuations, diagnosed as cardiac arrhythmia, that led her to the emergency department. - Her home monitoring indicated variable heart rates, and emergency department findings showed a similar pattern between 44 and 99 beats per minute. - Despite evaluations including EKG, X-rays, and blood tests, results indicated no acute pathology; however, occasional episodes of heart racing persist. - Episodes predominantly occur during sleep, especially when lying on her left side. - She has no racing thoughts or excessive irritability but acknowledges work-related stress as a contributing factor. - Family history reveals significant cardiac disease on her mother?s side. - The patient maintains regular physical activity without exacerbation of symptoms noted. Social History - The patient is employed and experiences workplace stress. - Regular physical activity is a major component of her routine, including walking, Pilates, and yoga. - She does not report use of substances nor any deviations in lifestyle that may compromise her health. Review of Systems - Cardiovascular: Reports fluctuating heart rate; denies syncope or angina. - Respiratory: Denies shortness of breath or excessive exertion. - Neurological: Denies racing thoughts. - Psychological: Denies irritability but acknowledges work-related stress. Physical Exam General: Cooperative and healthy appearing Nutritional Appearance: Well nourished Orientation/consciousness: Patient oriented x3 Limitations: No limitations Head: Normal to inspection General: Appearance normal, both eyes and all related structures Neck: Normal visual inspection Chest: Normal palpation of entire chest wall Respiratory: N ormal respiratory effort Neurology: Patient oriented x3, no racing thoughts, no excessive stress reported. Results - Tests: - EKG: No acute abnormalities reported. - Chest X-rays: Normal. - Blood work: Normal. - Thyroid function tests: Normal. Plan 1. Cardiac Arrhythmia - Utilize a Holter monitor for comprehensive heart rate data over multiple days. - Explore pharmaceutical intervention with a beta-pedro pending Holter findings. 2. Sleep Disturbance - Consider Trazodone as an option for managing sleep issues, explaining its use and potential side effects. 3. Anxiety - Monitor the influence of anxiety on symptoms and manage accordingly after cardiac assessment. 4. Family History Of Heart Disease - Continue acknowledging genetic predispositions while emphasizing preventative care measures. Discussion Notes I discussed with the patient her cardiac arrhythmia and the importance of monitoring it with a Holter device for a more detailed evaluation. I informed her that should her arrhythmia not resolve, a medication from the beta-pedro class could be considered. Acknowledging her reluctance with Trazodone, I explained its role as a sleep aid highlighting its [id number] properties and potential side effects. We talked about anxiety as a contributing factor, highlighting the necessity of managing stress although not considering it the primary issue without evidence of cardiac concern. I reassured her regarding the normal results from past studies and emphasized the preventive measures she is undertaking to mitigate her family history of heart disease. I advised a follow-up pending Holter results for further assessment. Patient Instructions - Wear the Holter monitor as directed for four days, pressing the button during episodes. - Note any symptoms experienced during monitoring for accurate evaluation. - Discuss potential benefits of using Trazodone for sleep if agreeable. - Engage in stress reduction techniques as discussed. - Continue with regular exercise and maintain current activity level. - Follow up after Holter completion for further recommendations. Orders: Orders ECG 5 day holter monitor Today R00.2 - Palpitations
--- OUTSIDE RECORDS SUMMARY | 2024-10-26 17:49 | XMS_ITS | Patient Health Record ---
Author Organization [facility] Address [address] [place] [address] Care Team Providers Care Rejector Name Role Phone Abilio Rolle MD Primary Care Provider Jayme Gandhi Unavailable [phone] Allergies Allergen (clinical drug ingredient) Drug/Non Drug [...] Problem Status W/U Status Risk Notes Problem [id number] Encounter for screening for malignant neoplasm of colon (Z12.11) Active confirmed Problem [id number] Pre-procedural examination (Z01.818) Active confirmed Problem Diverticulosis of colon (455475793) Diverticulosis of colon (K57.30) Active confirmed Plan Of Treatment Future Test Test Name Order Date COLONOSCOPY 08/21/2021 Insurance Providers Payer Name Payer Address Payer Phone Subscriber Number Group Number Insured Name Patient Relationship to Insured Coverage Start Date Coverage End Date [facility] [address] [place], [place] [id number] HERMILO NELSON Self - patient is the insured Medical (General) History Medical History History ICD Code Negative colonoscopy at age 51 [address] Villegas Denies CO,DM,CVA,Lung disease,renal dise ase Vertigo-intermittent Surgical History Surgery Date(Month/Year) 2 C-sections Tonsils and adenoids
== END 2024-10-26 15:59 | disposition home or self-care (01) ==
LOC: HO.HMCHD 15:42
PROVIDERS: PCP Internal Medicine; Visit Provider Internal Medicine
DX: R00.2 Palpitations (principal)

== ENCOUNTER → 2024-10-26 15:41 | Outpatient (BNVA) | payer BC, SELFPAY | PROVIDERS: PCP Internal Medicine; Visit Provider Internal Medicine | DX: Z13.89 Encounter for screening for other disorder (principal) ==

== ENCOUNTER → 2024-12-09 09:11 | Outpatient (BNV) | payer BC, SELFPAY | PROVIDERS: PCP Internal Medicine; Visit Provider Internal Medicine Cardiovascular Disease | DX: I49.3 Ventricular premature depolarization (principal) | CPT/HCPCS: 93244 ==

== ENCOUNTER → 2024-12-09 09:24 | Outpatient (REF) | payer BC, SELFPAY ==
--- NOTE | 2024-12-09 09:11 | HM_ITS ---
Conclusion: 1. Patient was monitored for total period of 4 days and 20 hours 2. Baseline was normal sinus rhythm with average heart of 81 beats per minute 3. No significant pauses noted 4. Frequent isolated PVCs noted with total burden of 2% 5. Patient reported 6 symptoms overall with some of the symptoms of rapid heart rate, correlating with isolated PVCs MTDD
--- OUTSIDE RECORDS SUMMARY | 2024-12-09 09:36 | XMS_ITS | Patient Health Record ---
Author Organization [facility] Address [address] [place] [address] Care Team Providers Care Marketing Operations Intern Name Role Phone Aquilino (RETIRED) Abilio HOPSON Primary Care Provide Jayme Trinidad [phone] Allergies Allergen (clinical drug ingredient) Drug/Non Drug [...] Problem Status W/U Status Risk Notes Problem [id number] Encounter for screening for malignant neoplasm of colon (Z12.11) Active confirmed Problem [id number] Pre-procedural examination (Z01.818) Active confirmed Problem Diverticulosis of colon (154845452) Diverticulosis of colon (K57.30) Active confirmed Plan Of Treatment Future Test Test Name Order Date COLONOSCOPY 08/21/2021 Insurance Providers Payer Name Payer Address Payer Phone Subscriber Number Group Number Insured Name Patient Relationship to Insured Coverage Start Date Coverage End Date [facility] [address] [place], [place] [id number] [phone] [id number] HERMILO NELSON Self - patient is the insured Medical (General) History Medical History History ICD Code Negative colonoscopy at age [address] Villegas Denies [place],DM,CVA,Lung disease,renal dise ase Vertigo-intermittent Surgical History Surgery Date(Month/Year) 2 C-sections Tonsils and adenoids
== END ==
LOC: HO.CARD 09:24
PROVIDERS: PCP Internal Medicine; Visit Provider Internal Medicine
DX: R00.2 Palpitations (principal)
CPT/HCPCS: 93242

== ENCOUNTER 2025-01-17 16:22 | Outpatient (AMB) | payer BC, SELFPAY ==
--- NOTE | 2025-01-17 16:31 | MHC.PC.OV ---
Vital Signs 01/17/25 16:34 Height 5 ft 2 in Weight 48.988 kg BMI 19.8 BP 120/70 Pulse 55 Pulse Source Pulse Oximeter Temp 97.7 F Temp Source Temporal Artery Scan Pulse Oximetry (%) 98 Oxygen Delivery Method Room Air Intake Visit Reasons: Annual Manager Balance Required: No Accompanied by: Self / Same As Patient Allergies sumatriptan (From IMITREX) Allergy (Intermediate, Verified 01/17/25 16:32) HIVES, SWELLING azithromycin Adverse Reaction (Intermediate, Verified 01/17/25 16:32) Weakness Tobacco use date assessed: 10/26/24 Dental Screening Dental Screen Date: 10/26/24 HPI HPI Comments History of Present Illness Details 64-year-old female with history of hypothyroidism presenting to the office today for annual physical exam and to establish care. Followed with Dr. Rolle, last seen earlier this year. No alcohol use. No cigarettes. No drugs including marijuana. Lives by herself and feels safe there. Works in [employer]. She follows a very healthy diet. She does exercise with walking several miles, pilates, and yoga. Hypothyroidism-not on levothyroxine Insomnia- started magnesium glycinate. Does feel more rested Ovarian cyst- following with Dr. Moody. Occ R pelvic pain. Upcoming US Nephrolithiasis- follows with lithotripsy. Goes for ultrasounds. No urinary symptoms Concerns: Tachycardia- resting HR up to 110-120 at times with palpitations. Had stayed elevated earlier this year. Still occasionally happens. No other symptoms. On review of Holter monitor, PVC burden 2.0% Health maintenance: Last colonoscopy 10/2021 showing sessile polyp, per operative report 10 year follow-up. However, she does tell me she has a family history of rectal cancer Screening mammogram 08/2024, negative for malignancy, 1 year follow-up advised Last Pap-follows annually with floor plan adjuster. Last Pap smear 03/2024 with 5 year follow-up advised ROS: General: No fevers, malaise, unintentional weight loss HEENT: No blurred vision, diplopia. No sore throat, nasal congestion, rhinorrhea, sinus pain, ear pain. No hearing loss Neck - no adenopathy Cardiovascular: No chest pain, or leg edema. see hpi Respiratory: No shortness of breath, wheezing, cough Breast: No pain, palpable lumps, nipple inversion GI: No dysphagia, odynophagia, globus sensation. No abdominal pain, nausea, vomiting, diarrhea, constipation, melena, hematochezia : No dysuria, hematuria, increased urinary frequency, decreased urinary output. BLANKET FOLDER: No abn vaginal bleeding or discharge MSK: No myalgia, back pain, arthralgias Neuro: No headaches, weakness, paresthesias Psych: no depression/anxiery. No AH/VH. No SI/HI Skin: No rashes or lesions EXAM: Constitutional - Awake and Alert, No apparent distress Eyes - PERRLA, EOMI. Anicteric Ears - external ears normal, canals clear, TMs intact and pearly vazquez with good cone of light Nose- septum midline, nares clear, no sinus tenderness Mouth/throat- mucosa moist, tongue and uvula midline, no erythema/edema or tonsillar adenopathy. Neck-trachea midline, thyroid symmetric without palpable nodules, no adenopathy Cardiovascular - S1S2, RRR, No edema Respiratory - Normal lung expansion, Normal respiratory effort, No respiratory distress, CTA bilaterally Gastrointestinal - NT / ND; +BS; No rebound or guarding - No CVA tenderness Extremities - no calf tenderness bilaterally, no swelling Musculoskeletal - Normal inspection, normal ROM Skin - Warm/Dry, no concerning lesions Neurological - Alert & oriented x3, CN II-XII in tact, 5/5 strength BUE and BLE, 2+ patellar reflexes, sensation intact Psychological - Appropriate affect PFSH Medical History (Updated 01/17/25 @ 17:07 by PAVAN Cosby) Subclinical hypothyroidism Palpitations COVID-19 vaccine series completed Renal calculi Elevated cholesterol Migraine headache Vertigo Surgical History Hx of abdominal surgery History of tonsillectomy and adenoidectomy H/O colonoscopy (~10/18/21) Hx of section Family History (Updated 01/17/25 @ 16:52 by PAVAN Cosby) Maternal Aunt Urinary bladder cancer Mother Macular degeneration Atrial flutter Father Leukemia Social History Housing: House Are you a primary healthcare sales representative to a significant other at home: No Do you presently have visiting nurse or other home services: No Patient Tobacco Use Status: Never used Tobacco e-Cigarette/Vaping Use: Never Used service: No Current occupational status: employed Cognitive needs: No Hearing needs: No Vision needs: Yes (reading glasses) Questionnaire Thrive Questionnaire Date Thrive assessed: 10/26/24 MINOO-7 AMB Questionnaire MINOO-7 Date MINOO - 7 assessed: 10/26/24 Source: Developed by Drs. Jayme Keller, Anita Burnett, Alpesh Wilcox and colleagues, with an educational ame from [employer]. Physical exam (Primary Care) Vital Signs: Last Vital Signs Temp 97.7 F 01/17/25 16:34 Pulse 55 01/17/25 16:34 BP 120/70 01/17/25 16:34 Pulse Ox 98 01/17/25 16:34 Oxygen Delivery Method Room Air 01/17/25 16:34 BMI result Body Mass Index 19.8 Tobacco/Smoking Status: Tobacco use Status Tobacco use date assessed 10/26/24 01/17/25 16:36 Patient Tobacco Use Status Never used Tobacco 01/17/25 16:36 e-Cigarette/Vaping Use Never Used 01/17/25 16:36 Thrive Assessment: Date of Thrive Assessment Date Thrive assessed 10/26/24 01/17/25 16:36 Coding Level of Care Code New Pt Prev Care 40-64y(52660) Diagnoses Routine medical exam Z00.00 Subclinical hypothyroidism E03.8 Palpitations R00.2 Assessment & Plan Assessment & Plan (1) Routine medical exam: Code(s): Z00.00 - Encounter for general adult medical examination without abnormal findings Plan: 64-year-old female presenting for annual exam. Plan as below (2) Subclinical hypothyroidism: Code(s): E03.8 - Other specified hypothyroidism Category: Medical Plan: Reviewed prior TSH levels which have been within normal limits. Repeat TSH with reflex free T4 ordered (3) Palpitations: Code(s): R00.2 - Palpitations Category: Medical Plan: Overall low burden. We will continue monitoring. Last Holter monitor and echocardiogram reviewed Plan Routine screening labs as ordered below Continue with screening mammograms, Pap smears, colonoscopies Continue following for annual skin exams and use sun protection Annual eye exams-referred Wear seat belt in car Recommend regular exercise and healthy diet Follow-up on year Orders: Orders TSH reflex Free T4 Today E03.9 - Hypothyroidism, unspecified Referrals Optometry Referral Z01.00 - Encounter for examination of eyes and vision without abnormal findings, Z83.518 - Family history of other specified eye disorder
[2025-01-17 16:34] VITALS: BP 120/70; PULSE 55; TEMP 36.5; O2SAT 98; BMI 19.8
--- OUTSIDE RECORDS SUMMARY | 2025-01-17 18:13 | XMS_ITS | Patient Health Record ---
Author Organization [facility] Address [address] [place] [address] Care Team Providers Care Healthcare Or Medical Name Role Phone Aquilino (RETIRED) Abilio HOPSON Primary Care Provide Jayme Trinidad [phone] Allergies Allergen (clinical drug ingredient) Drug/Non Drug [...] Problem Status W/U Status Risk Notes Problem [id number] Encounter for screening for malignant neoplasm of colon (Z12.11) Active confirmed Problem 067566222017594 Pre-procedural examination (Z01.818) Active confirmed Problem Diverticulosis of colon (820638275) Diverticulosis of colon (K57.30) Active confirmed Plan Of Treatment Future Test Test Name Order Date COLONOSCOPY 08/21/2021 Insurance Providers Payer Name Payer Address Payer Phone Subscriber Number Group Number Insured Name Patient Relationship to Insured Coverage Start Date Coverage End Date [facility] [address] [place], [place] [id number] HERMILO NELSON Self - patient is the insured Medical (General) History Medical History History ICD Code Negative colonoscopy at age [address] Villegas Denies [place],DM,CVA,Lung disease,renal dise ase Vertigo-intermittent Surgical History Surgery Date(Month/Year) 2 C-sections Tonsils and adenoids
== END 2025-01-17 17:06 | disposition home or self-care (01) ==
LOC: HO.HMCHD 16:23
PROVIDERS: PCP Internal Medicine; Visit Provider Physician Assistant
DX: Z00.00 Encounter for general adult medical examination without abnormal findings (principal); E03.8 Other specified hypothyroidism; R00.2 Palpitations

== ENCOUNTER 2025-01-21 07:38 | Outpatient (REF) | payer BC, SELFPAY ==
--- OUTSIDE RECORDS SUMMARY | 2025-01-21 07:40 | XMS_ITS | Patient Health Record ---
Author Organization [facility] Address [address] [place] [address] Care Team Providers Care Care Information Associate Name Role Phone Aquilino (RETIRED) Abilio HOPSON Primary Care Provide Jayme Trinidad [phone] Allergies Allergen (clinical drug ingredient) Drug/Non Drug [...] Problem Status W/U Status Risk Notes Problem [id number] Encounter for screening for malignant neoplasm of colon (Z12.11) Active confirmed Problem 237900664349625 Pre-procedural examination (Z01.818) Active confirmed Problem Diverticulosis of colon (583924306) Diverticulosis of colon (K57.30) Active confirmed Encounters Encounter Location Date Provider Diagnosis [facility] [address] [place] [phone] 01/18/2025 Jayme Dominguez Plan Of Treatment Future Test Test Name Order Date COLONOSCOPY 08/21/2021 Insurance Providers Payer Name Payer Address Payer Phone Subscriber Number Group Number Insured Name Patient Relationship to Insured Coverage Start Date Coverage End Date [facility] [address] [place], [place] [id number] HERMILO NELSON Self - patient is the insured Medical (General) History Medical History History ICD Code Negative colonoscopy at age [address] Villegas Denies [place],DM,CVA,Lung disease,renal dise ase Vertigo-intermittent Surgical History Surgery Date(Month/Year) 2 C-sections Tonsils and adenoids
== END 2025-01-21 07:39 | disposition home or self-care (01) ==
LOC: HO.LAB 07:38
PROVIDERS: PCP Physician Assistant; Visit Provider Physician Assistant
DX: E03.9 Hypothyroidism, unspecified (principal)
CPT/HCPCS: 36415; 84443

== ENCOUNTER 2025-01-23 16:12 | Outpatient (REF) | payer BC, SELFPAY ==
--- NOTE | ~2025-01-23 | US_ITS ---
EXAMINATION: US PELVIS CLINICAL INFORMATION: N83.209 - Unspecified ovarian cyst, unspecified side COMPARISON: July 26, 2024 TECHNIQUE: Ultrasound of the pelvis is performed using both transabdominal and transvaginal transducers along with Doppler. Transvaginal imaging is performed due to inadequate visualization transabdominally. FINDINGS: Uterus: The uterus is 9.5 x 3.2 x 5.4 cm. The double wall endometrial thickness is 3 mm. 4 uterine leiomyomas are measured. Right upper body mostly intramural partially subserosal leiomyoma measures 2.0 x 2.8 x 2.6 cm. Fundal subserosal and intramural leiomyoma is 1.3 x 1.0 x 1.0 cm. Calcified left uterine body leiomyoma is 1.0 0.6 x 0.8 cm. Intramural in the lower uterine body measures 1.1 x 1.0 x 1.0 cm Adnexa: Both ovaries are visualized. There is normal color flow to the adnexa. There is no ovarian torsion. There is no pelvic ascites or fluid collection. Right ovary measures 2.8 x 2.0 x 2.1 cm. Dominant follicle measuring 19 mm long axis. Left ovary measures 2.2 x 0.9 x 1.1 cm. US/US pelvic and transvaginal IMPRESSION: Fibroid uterus. Electronically signed by: Erwin Hodges MD 01/23/2025 05:28 PM EDT
--- OUTSIDE RECORDS SUMMARY | 2025-01-23 21:22 | XMS_ITS | Patient Health Record ---
Author Organization [facility] Address [address] [place] [address] Care Team Providers Care Resume Writer Name Role Phone Aquilino (RETIRED) Abilio HOPSON Primary Care Provide Jayme Trinidad [phone] Allergies Allergen (clinical drug ingredient) Drug/Non Drug [...] Problem Status W/U Status Risk Notes Problem 818590519 Encounter for screening for malignant neoplasm of colon (Z12.11) Active confirmed Problem 673360020779962 Pre-procedural examination (Z01.818) Active confirmed Problem Diverticulosis of colon (070921529) Diverticulosis of colon (K57.30) Active confirmed Encounters Encounter Location Date Provider Diagnosis [facility] [address] [place] [phone] 01/18/2025 Jayme Dominguez Plan Of Treatment Future Test Test Name Order Date COLONOSCOPY 08/21/2021 Insurance Providers Payer Name Payer Address Payer Phone Subscriber Number Group Number Insured Name Patient Relationship to Insured Coverage Start Date Coverage End Date [facility] [address] [place], [place] [id number] HERMILO NELSON Self - patient is the insured Medical (General) History Medical History History ICD Code Negative colonoscopy at age [address] Villegas Denies [place],DM,CVA,Lung disease,renal dise ase Vertigo-intermittent Surgical History Surgery Date(Month/Year) 2 C-sections Tonsils and adenoids
== END 2025-01-23 16:13 | disposition home or self-care (01) ==
LOC: HO.US 16:12
PROVIDERS: PCP Physician Assistant; Visit Provider Obstetrics & Gynecology
DX: N83.209 Unspecified ovarian cyst, unspecified side (principal)
CPT/HCPCS: 76830; 76856

== ENCOUNTER → 2025-01-23 16:15 | Outpatient (BNV) | payer BC, SELFPAY | PROVIDERS: PCP Physician Assistant; Visit Provider Radiology Diagnostic Radiology | DX: D25.1 Intramural leiomyoma of uterus (principal) | CPT/HCPCS: 76830; 76856 ==

== ENCOUNTER 2025-02-06 11:38 | Outpatient (AMB) | payer BC, SELFPAY ==
--- NOTE | 2025-02-06 11:55 | MHC.OFFVIS ---
Vital Signs 02/06/25 11:57 Height 5 ft 2 in Weight 108 lb BMI 19.8 BP 118/82 Intake Visit Reasons: ultrasound results Research Methods Instructor Required: No Information Interpreted: non-clinical & clinical Accompanied by: Self / Same As Patient Allergies sumatriptan (From IMITREX) Allergy (Intermediate, Verified 02/06/25 11:58) HIVES, SWELLING azithromycin Adverse Reaction (Intermediate, Verified 02/06/25 11:58) Weakness Post menopausal: Yes HPI Comments Details: Presenting for ultrasound follow-up regarding a 2.2 cm right simple ovarian cyst seen on a previous pelvic ultrasound in 08/02 Ultrasound in 02/02 showed the following: Uterus: The uterus is 9.5 x 3.2 x 5.4 cm. The double wall endometrial thickness is 3 mm. 4 uterine leiomyomas are measured. Right upper body mostly intramural partially subserosal leiomyoma measures 2.0 x 2.8 x 2.6 cm. Fundal subserosal and intramural leiomyoma is 1.3 x 1.0 x 1.0 cm. Calcified left uterine body leiomyoma is 1.0 0.6 x 0.8 cm. Intramural in the lower uterine body measures 1.1 x 1.0 x 1.0 cm Adnexa: Both ovaries are visualized. There is normal color flow to the adnexa. There is no ovarian torsion. There is no pelvic ascites or fluid collection. Right ovary measures 2.8 x 2.0 x 2.1 cm. Dominant follicle measuring 19 mm long axis. Left ovary measures 2.2 x 0.9 x 1.1 cm. [facility] Medical History (Updated 02/06/25 @ 12:01 by Reji Moody MD) Subclinical hypothyroidism Palpitations COVID-19 vaccine series completed Renal calculi Elevated cholesterol Migraine headache Vertigo Surgical History Hx of abdominal surgery History of tonsillectomy and adenoidectomy H/O colonoscopy (~10/18/21) Hx of section Family History (Updated 01/17/25 @ 16:52 by PAVAN Cosby) Maternal Aunt Urinary bladder cancer Mother Macular degeneration Atrial flutter Father Leukemia Social History Housing: House Are you a primary critical care physician to a significant other at home: No Do you presently have visiting nurse or other home services: No Patient Tobacco Use Status: Never used Tobacco e-Cigarette/Vaping Use: Never Used service: No Current occupational status: employed Cognitive needs: No Hearing needs: No Vision needs: Yes (reading glasses) Review of Systems Const All systems reviewed & are unremarkable except as noted in HPI and below Reports as per HPI and Reports no additional complaints GI Reports no additional complaints Reports no additional complaints Physical Exam Vital Signs: Last Vital Signs BP 118/82 02/06/25 11:57 BMI result Body Mass Index 19.8 Assessment & Plan Assessment & Plan (1) Uterine myoma: Code(s): D25.9 - Leiomyoma of uterus, unspecified Category: Medical Plan: Discussed with the patient the findings on pelvic ultrasound & the risk of myosarcoma; in addition reviewed with the patient that malignancy and pre malignancy cannot be ruled out without hysterectomy for pathological evaluation ; furthermore, explained to the patient the limitation of pelvic ultrasound and endometrial biopsy in the setting. Discussed with the patient the options of treatment including expectant management versus hysterectomy; the pros and cons, risks benefits of each approach were discussed with the patient including the fact that in cases of myosarcoma, surgical treatment can lead to early diagnosis and positively affects the prognosis; after further discussion, the patient decided to proceed with expectant management. Will repeat pelvic ultrasound periodically. Instructions given to patient to call in case any of the following occurs: pressure symptoms, abnormal uterine bleeding, pelvic pain; and to schedule a six-months pelvic ultrasound (order placed) and a follow-up appointment . All questions answered, the patient verbalized understanding and agreed with the plan . (2) Ovarian cyst: Code(s): N83.209 - Unspecified ovarian cyst, unspecified side Category: Medical Plan: Discussed with the patient the ovarian cyst by ultrasound. Discussed with the patient the Ultrasound findings, the main limitation of transvaginal ultrasonography alone as a diagnostic tool to distinguish benign from malignant masses relates to its lack of specificity and low positive predictive value for cancer. The differential diagnosis discussed with the patient includes the following but not limited to: benign and malignant gynecological and non-gynecological causes. Will order CA 125, discussed with the patient CA 125 sensitivity, specificity false-positive false-negative rate detecting ovarian cancer and the fact that it is not a screening test for ovarian cancer be elevated in benign condition and normal in ovarian malignancy. Discussed with the patient options of treatment , in case CA 125 is not elevated, including laparoscopy ovarian salpingo-oophorectomy vs. expectant management with repeat US in repeating pelvic US in 6 months from previous US. If the ovarian cyst is persistent larger and / or changes in Ultrasound appearance & became complex looking, or higher CA 125 will refer to gynecologic Oncology. All pros, cons, risks and benefits of each approach were discussed with the patient including but not limited to a delay in the diagnosis and treatment of ovarian cancer affecting the prognosis; The patient decided to go ahead with expectant management. All questions were answered & the patient verbalized understanding and agreed with the plan Orders: Orders US pelvic and transvaginal Today D25.9 - Leiomyoma of uterus, unspecified, N83.209 - Unspecified ovarian cyst, unspecified side CA-125 Today D25.9 - Leiomyoma of uterus, unspecified, N83.209 - Unspecified ovarian cyst, unspecified side Coding Level of Care Code Est Pt Level 3 (19576) Diagnoses Uterine myoma D25.9 Ovarian cyst N83.209
[2025-02-06 11:57] VITALS: BP 118/82; BMI 19.8
--- OUTSIDE RECORDS SUMMARY | 2025-02-06 13:07 | XMS_ITS | Patient Health Record ---
Author Organization [facility] Address [address] [place] [address] Care Team Providers Care Real Property Evaluator Name Role Phone Aquilino (RETIRED) Abilio HOPSON Primary Care Provide Jayme Trinidad [phone] Allergies Allergen (clinical drug ingredient) Drug/Non Drug [...] Problem Status W/U Status Risk Notes Problem 475866977 Encounter for screening for malignant neoplasm of colon (Z12.11) Active confirmed Problem 128230712617955 Pre-procedural examination (Z01.818) Active confirmed Problem Diverticulosis of colon (018908921) Diverticulosis of colon (K57.30) Active confirmed Encounters Encounter Location Date Provider Diagnosis [facility] [address] [place] [phone] 01/18/2025 Jayme Dominguez Plan Of Treatment Future Test Test Name Order Date COLONOSCOPY 08/21/2021 Insurance Providers Payer Name Payer Address Payer Phone Subscriber Number Group Number Insured Name Patient Relationship to Insured Coverage Start Date Coverage End Date [facility] [address] [place], [place] [id number] HERMILO NELSON Self - patient is the insured Medical (General) History Medical History History ICD Code Negative colonoscopy at age [address] Villegas Denies [place],DM,CVA,Lung disease,renal dise ase Vertigo-intermittent Surgical History Surgery Date(Month/Year) 2 C-sections Tonsils and adenoids
== END 2025-02-06 12:15 | disposition home or self-care (01) ==
LOC: HO.HWS 11:39
PROVIDERS: PCP Internal Medicine; Visit Provider Obstetrics & Gynecology
DX: D25.9 Leiomyoma of uterus, unspecified (principal); N83.209 Unspecified ovarian cyst, unspecified side
CPT/HCPCS: 99213

== ENCOUNTER 2025-04-03 16:03 | Outpatient (REF) | payer BC, SELFPAY ==
--- NOTE | ~2025-04-03 | US_ITS ---
EXAMINATION: US RETROPERITONEAL LIMITED (RENAL ONLY) CLINICAL INFORMATION: Calculus of kidney. COMPARISON: 09/27/2024. TECHNIQUE: Real-time imaging of the kidneys. FINDINGS: RIGHT KIDNEY: 11.0 x 4.1 x 4.9 cm (SAG x AP x TRV). The kidney is normal in size, contour, and echogenicity. Renal cortical thickness is normal. No calculi or focal parenchymal lesions. There is mild hydronephrosis. LEFT KIDNEY: 10.1 x 4.8 x 5.3 cm (SAG x AP x TRV). The kidney is normal in size, contour, and echogenicity. Renal cortical thickness is normal. No calculi or focal parenchymal lesions. There is mild hydronephrosis. US/US renal BI IMPRESSION: 1. There is mild bilateral hydronephrosis, uncertain significance or etiology. 2. There are no definite renal calculi. 3. Examination is otherwise normal. Electronically signed by: Vinicio Bosch MD 04/03/2025 04:27 PM EST
--- OUTSIDE RECORDS SUMMARY | 2025-04-03 20:21 | XMS_ITS ---
Author Organization Unknown ENCOUNTERS Encounter Performer Location Date Diagnosis Diagnosis Status Emergency Generic ED Physician [facility] [address] [place] [address] [id number] Pre Admit Generic ED Physician [facility] [address] [place] [address] [id number] Emergency [facility] [address] [place] [address] [id number] JULIO CESAR Pre Admit Generic ED Physician [facility] [address] [place] [address] [id number] Emergency [facility] [address] [place] [address] [id number] JULIO CESAR Pre Admit Generic ED Physician [facility] [address] [place] [address] [id number] Pre Admit [facility] [address] [place] [address] [id number] Outpatient [facility] [address] [place] [address] [id number] JULIO CESAR Pre Admit [facility] [address] [place] [address] [id number] Outpatient [facility] [address] [place] [address] [id number] JULIO CESAR Emergency [facility] [address] [place] [address] [id number] JULIO CESAR *Note: Encounters from your own facility or health system may be excluded. Allergies, Adverse Reactions, Alerts Allergen Type Severity Identification Date sumatriptan drug allergy [id number] azithromycin drug allergy [id number] Medications Name Date Quantity Days Supplied GPI Number
== END 2025-04-03 16:04 | disposition home or self-care (01) ==
LOC: HO.US 16:03
PROVIDERS: PCP Physician Assistant; Visit Provider Urology
DX: N20.0 Calculus of kidney (principal)
CPT/HCPCS: 76775

== ENCOUNTER → 2025-04-03 16:07 | Outpatient (BNV) | payer BC, SELFPAY | PROVIDERS: PCP Physician Assistant; Visit Provider Radiology Diagnostic Radiology | DX: N13.30 Unspecified hydronephrosis (principal) | CPT/HCPCS: 76775 ==

== ENCOUNTER 2025-04-11 15:23 | Outpatient (AMB) | payer BC, SELFPAY ==
--- NOTE | 2025-04-11 15:23 | MHC.OFFVIS ---
Intake Visit Reasons: 6m/ US/ [facility]olink (NO UA ) SET Intake Note: Patient is present for 6M/US/L[facility]OLINK Urology Medication:NONE Antibiotic Allergy:AZITHROMYCIN Blood Thinner:NONE Imaging : Renal Ultrasound 04/03/25 Labs done Litho Link 04/01/25 Beverage Host Required: No Accompanied by: Self / Same As Patient Allergies sumatriptan (From IMITREX) Allergy (Intermediate, Verified 04/11/25 15:24) HIVES, SWELLING azithromycin Adverse Reaction (Intermediate, Verified 04/11/25 15:24) Weakness HPI Comments Details: Brandy is a pleasant female. She is a patient of Dr. Rolle. She is seen for the following urologic conditions - nephrolithiasis Telemedicine Evaluation 15 min Consultation [employer] Mobile Interaction Brittany Video Six-month follow-up Discussed imaging Prior Uro risk - recommend additional lemon juice to water, discussed potassium citrate She preferred using lemon and does want outs per day in either tea or water Follow-up Litholink volume 1500 cc, calcium 135, oxalate 21, citrate 334 Nephrolithiasis Prior stones Imaging - There is a cluster of 7 x 8 mm calculi within the lumen of the proximal right ureter resulting in moderate to severe hydroureteronephrosis. - 10/02 renal ultrasound small stones bilateral - 04/04 renal ultrasound no stone seen Intervention - 07/05 right ureteroscopy associated with urinary retention Urorisk - 10/02 moderate volume - needs 16 oz more, normal calcium, sodium, oxalate PFSH Medical History (Updated 04/11/25 @ 15:48 by Zenon Us MD) Subclinical hypothyroidism Palpitations COVID-19 vaccine series completed Renal calculi Elevated cholesterol Migraine headache Vertigo Surgical History Hx of abdominal surgery History of tonsillectomy and adenoidectomy H/O colonoscopy (~10/18/21) Hx of section Family History (Updated 01/17/25 @ 16:52 by PAVAN Cosby) Maternal Aunt Urinary bladder cancer Mother Macular degeneration Atrial flutter Father Leukemia Social History Housing: House Are you a primary furnace caretaker to a significant other at home: No Do you presently have visiting nurse or other home services: No Patient Tobacco Use Status: Never used Tobacco e-Cigarette/Vaping Use: Never Used service: No Current occupational status: employed Cognitive needs: No Hearing needs: No Vision needs: Yes (reading glasses) Review of Systems Const All systems reviewed & are unremarkable except as noted in HPI and below Reports no additional complaints Resp Reports no additional complaints GI Reports no additional complaints Reports as per HPI Musc Reports no additional complaints Physical Exam Telemedicine evaluation Appropriate responses Regular breathing rate and rhythm HEENT Head: Yes normal to inspection Ears: hearing grossly normal bilaterally Eyes General: appearance normal, both eyes and all related structures Neck Neck: Yes normal visual inspection Chest Chest palpation & inspection: normal inspection of the chest Resp Effort & Inspection: normal respiratory effort and able to speak in complete sentences Telehealth Telehealth Telehealth Platform: [employer] Mobile Interaction Location of provider rendering services: practice address Location of patient: address on file Patient Identification confirmed using: Name, : Yes Telehealth method: video Patient verbally consented to treatment: Yes Patient verbally consented to billing insurance company: Yes Patient informed of any privacy concerns related to visit: Yes Assessment & Plan Assessment & Plan (1) Renal calculi: Code(s): N20.0 - Calculus of kidney Category: Medical Plan Twelve month follow-up Continue lemon Orders: Orders US renal BI 12 Months N20.0 - Calculus of kidney Patient Instructions: This note is constructed using voice recognition software. 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 Imaging studies, laboratory and physical exam results were discussed and reviewed in detail. No major barriers to patient understanding were identified. An opportunity to ask questions regarding the treatment plan was provided. All questions were answered. The patient expressed understanding and agreement with the above treatment plan. The patient is aware they should contact our office by phone for worsening of their current condition or the appearance of new urologic symptoms. Compliance is encouraged with any medications and followup testing that is ordered. It is a privilege to participate in the urologic care of your patient. If you have any questions or concerns regarding treatment for the above conditions, or other urologic issues, please do not hesitate to contact me. The office telephone contact is [phone]. Sincerely, Dr Zenon Us MD, [facility] - Urology Compassionate Specialist Care for the Genitourinary System Coding Level of Care Code Tele Est Pt Level 3 (73521) Complex visit Add On G2211 Diagnoses Renal calculi N20.0
== END 2025-04-11 16:41 | disposition home or self-care (01) ==
LOC: HO.HUSH 15:23
PROVIDERS: PCP Physician Assistant; Visit Provider Urology
DX: N20.0 Calculus of kidney (principal)
CPT/HCPCS: 99213

== ENCOUNTER 2025-04-27 10:29 | Outpatient (AMB) | payer BC, SELFPAY ==
--- NOTE | 2025-04-27 10:45 | A.OFFVIS_ITS ---
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 No complaints. Last Pap/HPV was negative in 04/03 Last Mammogram was BI-RADS 1 in 09/02 Last Colonoscopy was done in 10/30 [facility] Medical History Subclinical hypothyroidism Palpitations COVID-19 vaccine series completed Renal calculi Elevated cholesterol Migraine headache Vertigo Surgical History Hx of abdominal surgery History of tonsillectomy and adenoidectomy H/O colonoscopy (~10/18/21) Hx of section Family History (Updated 04/27/25 @ 10:48 by Isatu West CMA) Maternal Aunt Urinary bladder cancer Mother Macular degeneration Atrial flutter Rectal cancer Father Leukemia Social History (Updated 04/27/25 @ 10:49 by Isatu West CMA) Household Members: None Housing: House Are you a primary healthcare architect to a significant other at home: No Do you presently have visiting nurse or other home services: No Alcohol intake: current Alcohol intake frequency: holidays/special occasions only Patient Tobacco Use Status: Never used Tobacco e-Cigarette/Vaping Use: Never Used Use of substances other than those prescribed or required for medical reasons: No service: No Current occupational status: employed 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 Sexually active: No Sexual orientation: Straight/Heterosexual Gender identity: Female Cognitive needs: No Hearing needs: No Vision needs: Yes (reading glasses) Female Reproductive History Menstrual Menopause type: natural Total pregnancies: 2 Full term: 2 Number of Living Children: 2 Date of last pap smear: 04/05/24 Date of Mammogram: 08/27/24 Review of Systems Const All systems reviewed & are unremarkable except as noted in HPI and below Card Reports as per HPI Resp Reports as per HPI GI Reports as per HPI and Reports no additional complaints Reports as per HPI Physical Exam Vital Signs: Last Vital Signs BP 120/72 04/27/25 10:46 BMI result Body Mass Index 20.1 Const General: cooperative, healthy appearing and comfortable Chest Chest palpation & inspection: normal inspection of the chest and normal palpation of entire chest wall Breast/axilla inspection: normal inspection of the breasts and normal inspection of the axillae Breast/axilla palpation: normal palpation of the breasts, normal palpation of the axillae and no axillary lymphadenopathy Resp Effort & Inspection: normal respiratory effort Auscultation: clear to auscultation bilaterally Percussion: percussion normal Cardio Palpation: normal PMI Rate: regular rate Rhythm: regular rhythm Heart sounds: no murmurs and no rubs Peripheral pulses: Peripheral pulses 2+ throughout GI Inspection: Yes normal to inspection Palpation (GI): Soft to palpation, nontender, no guarding, not rigid and No hepatosplenomegaly present Percussion: Yes normal to percussion Auscultation: normal bowel sounds Rectal Exam - Female: deferred General: Yes bladder normal to palpation External Female Exam: No lesion Speculum Exam - Vagina: normal appearance of the vagina, normal palpation, normal vaginal discharge and not erythematous Speculum Exam - Cervix: normal appearance of the cervix and normal palpation Bimanual exam- vagina & uterus: normal bimanual exam, normal palpation, uterine size normal, bladder normal to palpation, consistency normal and normal palpation Bimanual Exam- Adnexa, other: normal adnexae, no masses and no tenderness Assessment & Plan Assessment & Plan (1) Well woman exam: Code(s): Z01.419 - Encounter for gynecological examination (general) (routine) without abnormal findings Category: Medical Plan: Co testing not indicated this year. Counseled the patient about the recommended dietary allowance of 1200 mg of Calcium & 600 IU of vitamin D. Instructions given to patient to schedule next screening Mammogram in 09/03. The patient was instructed to perform monthly self-breast exams and schedule annual exam in a year. All questions answered and the patient verbalized understanding. Coding Level of Care Code Est Pt Prev Care 40-64y(33908) Diagnoses Well woman exam Z01.419
[2025-04-27 10:46] VITALS: BP 120/72; BMI 20.1
--- OUTSIDE RECORDS SUMMARY | 2025-04-27 13:11 | XMS_ITS ---
Author Organization Unknown ENCOUNTERS Encounter Performer Location Date Diagnosis Diagnosis Status Emergency Generic ED Physician [facility] [address] [place] [address] [id number] Pre Admit Generic ED Physician [facility] [address] [place] [address] [id number] Emergency [facility] [address] [place] [address] [id number] JULIO CESAR Pre Admit Generic ED Physician [facility] [address] [place] [address] [id number] Emergency [facility] [address] [place] [address] [id number] JULIO CESAR Pre Admit Generic ED Physician [facility] [address] [place] [address] [id number] Pre Admit [facility] [address] [place] [address] [id number] Outpatient [facility] [address] [place] [address] [id number] JULIO CESAR Pre Admit [facility] [address] [place] [address] [id number] Outpatient [facility] [address] [place] [address] [id number] JULIO CESAR Emergency [facility] [address] [place] [address] [id number] JULIO CESAR *Note: Encounters from your own facility or health system may be excluded. Allergies, Adverse Reactions, Alerts Allergen Type Severity Identification Date sumatriptan drug allergy [id number] azithromycin drug allergy 20180923 Medications Name Date Quantity Days Supplied GPI Number
--- OUTSIDE RECORDS SUMMARY | 2025-04-27 13:11 | XMS_ITS | Patient Health Record ---
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 Name Role Phone Aquilino (RETIRED) Abilio HOPSON Primary Care Provide Jayme Trinidad [phone] Allergies Allergen (clinical drug ingredient) Drug/Non Drug Allergy documented on EMR Reaction Allergy Type Onset Date Status sumatriptan Imitrex Unknown Drug Allergy Activ e Reason For Referral No Information Medications Medication SIG (Take, Route, Frequency, Duration) Notes Start Date End Date Status Vitamin D 400 UNIT Capsule 1 capsule Ora lly Once a day; Duration: 30 day(s) Active Immunizations Vaccine Route Administration Date Status Comme nts Influenza Unknown 08/21/2021 Refused Social History Tobacco Use: Social History Observation Description Date Details (start date - stop date) Never Smoker NA - NA Social History Drugs/Alcohol: Social Info Question Answer Notes Alcohol Screen Did you have a drink containing alcohol in the past year? No Points 0 Interpretation Negative Tobacco Use: Social Info Question Answer Notes Tobacco Use/Smoking Patient is a nonsmoker Additional Details Category Social Info Options Details Miscellaneous: Marital status: single Occupation: [employer] H[employer] Section Notes: Nonsmoker; no sig alcohol Problems Problem Type SNOMED Code ICD Code Onset Dates Problem Status W/U Status Risk Notes Problem Screening for malignant neoplasm of colon (634093262) Encounter for screening for malignant neoplasm of colon (Z12.11) Active confirmed Problem Pre-procedure evaluation check (554990407) Pre-procedural examination (Z01.818) Active confirmed Problem Diverticulosis of colon (233393045) Diverticulosis of colon (K57.30) Active confirmed Encounters Encounter Location Date Provider Diagnosis [facility] [address] [place] [phone] 01/18/2025 Jayme Dominguez Plan Of Treatment Future Test Test Name Order Date COLONOSCOPY 08/21/2021 Insurance Providers Payer Name Payer Address Payer Phone Subscriber Number Group Number Insured Name Patient Relationship to Insured Coverage Start Date Coverage End Date [facility] [address] [place], [place] [phone] [id number] HERMILO NELSON Self - patient is the insured Medical (General) History Medical History History ICD Code Negative colonoscopy at age 51 [address] Villegas Denies [place],DM,CVA,Lung disease,renal dise ase Vertigo-intermittent Surgical History Surgery Date(Month/Year) 2 C-sections Tonsils and adenoids
== END 2025-04-27 11:08 | disposition home or self-care (01) ==
LOC: HO.HWS 10:30
PROVIDERS: PCP Internal Medicine; Visit Provider Obstetrics & Gynecology
DX: Z01.419 Encounter for gynecological examination (general) (routine) without abnormal findings (principal)
CPT/HCPCS: 99396; 99459